=== PATIENT | female | born 1955 | race African-American/Black ===

== ENCOUNTER 2020-11-01 20:17 | Inpatient (IN) | payer SELFPAY ==
[~2020-11-01] VITALS: Ht 172.7 cm; Wt 121.4 kg
[2020-11-01] MEDS ORDERED: fentaNYL PF VIAL 100 MCG/2 ML VIAL IV PRN (21:00)
--- NOTE | 2020-11-01 21:23 | PHYS DOC ---
Past Medical History Past Medical History: Arthritis (MADELYN MONTERO APRN) Past Surgical History: Other (MADELYN MONTERO APRN) Smoking Status: Never Smoker Alcohol Use: None (MADELYN MONTERO APRN) General Adult EDM: Chief Complaint: ABDOMINAL PAIN HPI: HPI: Patient is a 65 year old female with no significant medical history who presents to the ED today complaining of 5 out of 10 generalized sharp bilateral upper abdominal pain with nausea vomiting that began 7 days ago. Patient states symptoms began after eating a hamburger with fries and strawberry shake. She believes she has food poisoning. Describes the pain as sharp and intermittent. Denies any hematemesis. Denies any diarrhea. Denies any fever. Denies any concerns for COVID-19. She states she never leaves the house. Denies anything specifically exacerbating or relieving her pain. (MADELYN MONTERO APRN) Review of Systems: Review of Systems: Constitutional: Denies fever or chills. [] Eyes: Denies change in visual acuity. [] HENT: Denies nasal congestion or sore throat. [] Respiratory: Denies cough or shortness of breath. [] Cardiovascular: Denies chest pain or edema. [] GI: Reports bilateral upper abdominal pain, nausea vomiting, denies bloody stools or diarrhea. [] : Denies dysuria. [] Musculoskeletal: Denies back pain or joint pain. [] Integument: Denies rash. [] Neurologic: Denies headache, focal weakness or sensory changes. [] Psychiatric: Denies depression or anxiety. [] (MADELYN MONTERO APRN) Heart Score: Risk Factors: Risk Factors: DM, Current or recent (<one month) smoker, HTN, HLP, family history of CAD, obesity. Risk Scores: Score 0 - 3: 2.5% MACE over next 6 weeks - Discharge Home Score 4 - 6: 20.3% MACE over next 6 weeks - Admit for Clinical Observation Score 7 - 10: 72.7% MACE over next 6 weeks - Early Invasive Strategies (MADELYN MONTERO APRN) Current Medications: Current Medications Medications (Trade) Dose Ordered Sig/Katherine Start Time Stop Time Status Last Admin Dose Admin Famotidine (Pepcid Vial) 20 mg 1X ONCE 11/01/20 21:30 11/01/20 21:31 Fentanyl Citrate (Fentanyl 2ml Vial) 50 mcg PRN Q15MIN PRN 11/01/20 21:00 11/02/20 20:59 Ondansetron HCl (Zofran) 4 mg 1X ONCE 11/01/20 21:30 11/01/20 21:31 Sodium Chloride 1,000 ml @ 1,000 mls/hr 1X ONCE 11/01/20 21:30 11/01/20 22:29 (MADELYN MONTERO APRN) Allergies: Allergies: Allergies Coded Allergies Type Severity Reaction Last Updated Verified No Known Drug Allergies 11/01/20 No (MADELYN MONTERO APRN) Physical Exam: PE: Constitutional: Well developed, well nourished, no acute distress, non-toxic appearance. [] HENT: Normocephalic, atraumatic, bilateral external ears normal, oropharynx moist, no oral exudates, nose normal. [] Eyes: PERRLA, EOMI, conjunctiva normal, no discharge. [] Neck: Normal range of motion, no tenderness, supple, no stridor. [] Cardiovascular:Heart rate regular rhythm, no murmur [] Lungs & Thorax: Bilateral breath sounds clear to auscultation [] Abdomen: Bowel sounds normal, soft, mild RUQ tenderness with positive vega's sign as well as epigastric tenderness on exam, no right lower quadrant tenderness on exam, no masses, no pulsatile masses. [] Skin: Warm, dry, no erythema, no rash. [] Back: No tenderness, no CVA tenderness. [] Extremities: No tenderness, no cyanosis, no clubbing, ROM intact, no edema. [] Neurologic: Alert and oriented X 3, normal motor function, normal sensory function, no focal deficits noted. [] Psychologic: Affect normal, judgement normal, mood normal. [] (MADELYN MONTERO APRN) Current Patient Data: Vital Signs: Vital Signs Date Time Temp Pulse Resp B/P (MAP) Pulse Ox O2 Delivery O2 Flow Rate FiO2 11/01/20 20:56 97.9 64 26 128/84 (99) 99 Room Air 97.9 (MADELYN MONTERO APRN) EKG: EKG: [] (MADELYN MONTERO APRN) Radiology/Procedures: Radiology/Procedures: []PROCEDURE: CT ABDOMEN PELVIS WO CONTRAST Exam: CT abdomen and pelvis without contrast INDICATION: Abdominal pain TECHNIQUE: Sequential axial images through the abdomen and pelvis obtained without IV contrast. Sagittal and coronal reformatted images were reconstructed from the axial data and reviewed. Comparisons: None FINDINGS: Heart size is normal. No pericardial effusion. There are small bilateral pleural effusions. Mild groundglass opacity noted at the right base. Evaluation of solid organs is limited secondary to noncontrast technique. Liver, spleen, pancreas and adrenals are unremarkable. Gallstone is noted within the gallbladder. Gallbladder is nondistended. No renal or ureteral calculi. There is mild right-sided perinephric stranding. Mild prominence of the right renal collecting system. Bladder is decompressed not well evaluated. Uterus is nonenlarged. No abnormal adnexal mass. Large and small bowel are unremarkable. Appendix is normal. No free intra- abdominal air or fluid. No obstruction. Abdominal aorta has a normal course and caliber. No enlarged intra-abdominal lymph nodes are identified. No suspicious osseous lesions or acute fractures. IMPRESSION: 1. Mild prominence of the right renal collecting system and perinephric stranding. Correlate with urinalysis for infection. 2. Cholelithiasis 3. Trace bilateral pleural effusions. Mild bilateral spastic the right lung base may relate to atelectasis or developing infectious process. Exposure: One or more of the following in the visualized dose reduction techniques were utilized for this examination: 1. Automated exposure control 2. Adjustment of the MA and/or KV according to patient size 3. Use of iterative of reconstructive technique Electronically signed by: Bekah Parker MD (11/01/2020 11:02 PM) [id number] DICTATED and SIGNED BY: BEKAH PARKER MD DATE: 11/01/20 [id number] (MADELYN MONETRO APRN) Course & Med Decision Making: Course & Med Decision Making Pertinent Labs and Imaging studies reviewed. (See chart for details) This is a 65-year-old female patient presented to the ED today with generalized upper abdominal pain with nausea vomiting that has been going on for 7 days. She believes she has food poisoning. She states symptoms began after eating a hamburger, fries and strawberry shake. CBC with a WBC of 12.4, hemoglobin 10.3 hematocrit 30.8. CMP with sodium of 127, potassium is normal. Creatinine 1.8, BUN 54, glucose 154, anion gap of 15, magnesium 3.1, AST 157, ALT 177, ALK 231. Patient denies any previous history of kidney disease. She reports the last time she saw her primary care doctor was 5 years ago. Urine analysis is still pending patient has not voided Right upper quadrant ultrasound was ordered, CT of the abdomen and pelvis noted for. Possible pyelonephritis, cholelithiasis, trace bilateral pleural effusion with possibility of atelectasis or developing lower infection to the right lung. Routine consult placed for general surgery Spoke with Dr. Delarosa who accepted patient for admission Right upper quadrant ultrasound positive for cholelithiasis with suspicion for cholecystitis. [id number] Carcamo, patient was started on Zosyn and IV fluids (MADELYN MONTERO APRN) Dragon Disclaimer: Dragon Disclaimer: This electronic medical record was generated, in whole or in part, using a voice recognition dictation system. (MADELYN MONTERO APRN) Departure Departure Impression: Primary Impression: Intractable nausea and vomiting Additional Impressions: Cholelithiasis Qualified Codes: K80.20 - Calculus of gallbladder without cholecystitis without obstruction Acute renal failure Qualified Codes: N17.9 - Acute kidney failure, unspecified Dehydration Person under investigation for COVID-19 Transaminitis Disposition: ADMITTED INPT THIS HOSP Condition: STABLE Referrals: NO PCP (PCP) Attending Signature Attending Signature I have reviewed the PA/HEALTH INSURANCE SPECIALIST's note and plan of care. I was available for consultation as needed during the patient's visit in the emergency department. I agree with the clinical impression, plan, and disposition. (ANGELLA IRIZARRY DO) MADELYN MONTERO APRN Nov 01, 2020 21:23 ANGELLA IRIZARRY DO Nov 02, 2020 04:23
[2020-11-01 21:24] LABS: BASO % 0 % (0-3); EOS # 0.1 x10^3/uL (0.0-0.7); EOS % 1 % (0-3); HEMATOCRIT 30.8 % (36.0-47.0); HEMOGLOBIN 10.3 g/dL (12.0-15.5); LYMPH # 2.6 x10^3/uL (1.0-4.8); LYMPH % 21 % (24-48); MEAN CORPUSCULAR HEMOGLOBIN 28 pg (25-35); MEAN CORPUSCULAR HGB CONC 34 g/dL (31-37); MEAN CORPUSCULAR VOLUME 85 fL (79-100); MONO % 8 % (0-9); NEUT # 8.7 x10^3/uL (1.8-7.7); NEUT % 70 % (31-73); PLATELET COUNT 246 x10^3/uL (140-400); RED BLOOD COUNT 3.65 x10^6/uL (3.50-5.40); RED CELL DISTRIBUTION WIDTH 13.7 % (11.5-14.5); WHITE BLOOD COUNT 12.4 x10^3/uL (4.0-11.0)
[2020-11-01 21:30] LABS: CALCIUM 8.4 mg/dL (8.5-10.1); CREATININE 1.8 mg/dL (0.6-1.0); GFR 34.3; POTASSIUM 4.2 mmol/L (3.5-5.1)
[2020-11-01] MEDS ORDERED: FAMOTIDINE 20 MG/2 ML VIAL IVP ONE (21:30)
[2020-11-01] MEDS ORDERED: ONDANSETRON PF 4 MG/2 ML VIAL. IVP ONE (21:30)
[2020-11-01] MEDS ORDERED: IV NORMAL SALINE 1000ML BAG 1,000 ML IV ONE ×2 (21:30→23:00)
[2020-11-01 21:36] LABS: ALBUMIN 2.5 g/dL (3.4-5.0); ALBUMIN/GLOBULIN RATIO 0.6 (1.0-1.7); MAGNESIUM 3.1 mg/dL (1.8-2.4); TOTAL PROTEIN 6.7 g/dL (6.4-8.2)
[2020-11-01] MEDS ORDERED: ONDANSETRON PF 4 MG/2 ML VIAL. IV PRN (23:00)
--- NOTE | 2020-11-01 23:04 | RAD ---
Exam: CT abdomen and pelvis without contrast INDICATION: Abdominal pain TECHNIQUE: Sequential axial images through the abdomen and pelvis obtained without IV contrast. Sagit jeramie and coronal reformatted images were reconstructed from the axial data and reviewed. Comparisons: None FINDINGS: Heart size is normal. No pericardial effusion. There are small bilateral pleural effusions. Mild grou ndglass opacity noted at the right base. Evaluation of solid organs is limited secondary to noncontrast technique. Liver, spleen, pancreas and adrenals are unremarkable. Gallstone is noted within the gallbladder. Gal lbladder is nondistended. No renal or ureteral calculi. There is mild right-sided perinephric stranding. Mild prominence of the right renal collecting system. Bladder is decompressed not well evaluated. Uterus is nonenlarged. No abnormal adnexal mass. Large and small bowel are unremarkable. Appendix is normal. No free intra-abdominal air or fluid. No obstruction. Abdominal aorta has a normal course and caliber. No enlarged intra-abdominal lymph nodes are identified. No suspicious osseous lesions or acute fractures. IMPRESSION: 1. Mild prominence of the right renal collecting system and perinephric stranding. Correlate with ur inalysis for infection. 2. Cholelithiasis 3. Trace bilateral pleural effusions. Mild bilateral spastic the right lung base may relate to atele ctasis or developing infectious process. Exposure: One or more of the following in the visualized dose reduction techniques were utilized for this examination: 1. Automated exposure control 2. Adjustment of the MA and/or KV according to patient size 3. Use of iterative of reconstructive technique Electronically signed by: Bekah Bowman MD (11/01/2020 11:02 PM) [id number]
--- NOTE | 2020-11-01 23:27 | RAD ---
Exam: Ultrasound abdomen limited Indication: Abdominal pain Technique: Real-time grayscale and color Doppler images of the right upper quadrant were obtained by the department pilot plant technician. Comparisons: CT same day FINDINGS: Increased echogenicity of the liver. Hepatopedal flow noted in the portal vein. Gallbladder is mildly distended. Nonmobile stone at the gallbladder neck. There is a sonographic Mur[place] hy sign per the department pilot plant technician. Trace pericholecystic fluid without wall thickening. Right kidney measures 10.3 cm in length. No hydronephrosis. Visualized portions aorta and IVC are unremarkable. IMPRESSION: 1. Cholelithiasis with findings suspicious for acute cholecystitis. If necessary HIDA scan can defin itively evaluate. 2. Mild hepatic steatosis. 3. No right-sided hydronephrosis. Electronically signed by: Bekah Bowman MD (11/01/2020 11:25 PM) [id number]
[2020-11-01] MEDS ORDERED: IBUP-1060 PO (23:55)
[2020-11-02] VITALS (26 sets, daily range): BP systolic 88–150; BP diastolic 62–92
[2020-11-02] MEDS: fentaNYL PF VIAL 100 MCG/2 ML VIAL IV PRN ×2 (01:10→03:47)
[2020-11-02] MEDS ORDERED: MORPHINE SULFATE 4 MG/ML VIAL. IV PRN (06:45)
--- NOTE | 2020-11-02 06:48 | PDOC1 ---
History and Physical Date of Admission Date of Admission DATE: 11/02/20 TIME: 06:36 Source Source: Chart review, Patient History of Present Illness History of Present Illness Patient is a 65-year-old female with no significant past medical history presents to the ER for evaluation of abdominal pain for the past week. Patient reports bilateral upper abdominal pain, 5/10. She reports associated nausea and vomiting over this time. Symptoms aggravated by eating. He denies any hematemesis, diarrhea, fever, or known COVID-19 exposure. Upon evaluation in the ER CT abdomen pelvis shows cholelithiasis with mild right perinephric stranding, and ultrasound right upper quadrant showed holelithiasis with findings suspicious for acute cholecystitis. Will admit patient for further medical management with general surgery consult. Past Medical History Rheumatologic: Other (Arthritis) Past Surgical History Past Surgical History: No pertinent history Family History Family History Denies pertinent family history Social History Smoke: No ALCOHOL: none Drugs: None Current Problem List Problem List Problems Medical Problems: (1) Acute renal failure Status: Acute (2) Cholelithiasis Status: Acute (3) Dehydration Status: Acute (4) Intractable nausea and vomiting Status: Acute (5) Person under investigation for COVID-19 Status: Acute (6) Renal failure Status: Acute (7) Transaminitis Status: Acute Current Medications Current Medications Current Medications Sodium Chloride 1,000 ml @ 1,000 mls/hr 1X ONCE IV Last administered on 11/01/20at 21:20; Start 11/01/20 at 21:30; Stop 11/01/20 at 22:29; Status DC Ondansetron HCl (Zofran) 4 mg 1X ONCE IVP Last administered on 11/01/20at 21:18; Start 11/01/20 at 21:30; Stop 11/01/20 at 21:31; Status DC Famotidine (Pepcid Vial) 20 mg 1X ONCE IVP Last administered on 11/01/20at 21:19; Start 11/01/20 at 21:30; Stop 11/01/20 at 21:31; Status DC Fentanyl Citrate (Fentanyl 2ml Vial) 50 mcg PRN Q15MIN PRN IV PAIN GREATER THAN 3/10 Last administered on 11/01/20at 21:19; Start 11/01/20 at 21:00; Stop 11/02/20 at 20:59 Ondansetron HCl (Zofran) 4 mg PRN Q8HRS PRN IV NAUSEA/VOMITING 1ST CHOICE; Start 11/01/20 at 23:00; Stop 11/02/20 at 22:59 Fentanyl Citrate (Fentanyl 2ml Vial) 50 mcg PRN Q1HR PRN IV SEVERE PAIN 7-10 Last administered on 11/02/20at 03:47; Start 11/01/20 at 23:00; Stop 11/02/20 at 22:59 Sodium Chloride 1,000 ml @ 100 mls/hr 1X ONCE IV Last administered on 11/02/20at 01:28; Start 11/01/20 at 23:00; Stop 11/02/20 at 08:59 Influenza Virus Vaccine Quadrival (Fluzone Quad [id number] Syringe) 0.5 ml ONCE ONCE VAX IM ; Start 11/02/20 at 09:00; Stop 11/02/20 at 09:01 Active Scripts Active Reported Ibuprofen 800 Mg Tablet 800 Mg PO PRN Q6HRS PRN Allergies Allergies: Coded Allergies: No Known Drug Allergies (Unverified , 11/01/20) ROS Review of System GENERAL: No history of weight change, weakness or fevers. SKIN: No bruising, hair changes or rashes. EYES: No blurred, double or loss of vision. NOSE AND THROAT: No history of nosebleeds, hoarseness or sore throat. HEART: Denies chest pain, denies palpitations. LUNGS: Denies cough, hemoptysis, wheezing or shortness of breath. GASTROINTESTINAL: Abdominal pain, nausea, vomiting. Denies diarrhea. GENITOURINARY: Denies dysuria, frequency, urgency, hematuria. NEUROLOGIC: Denies history of numbness, tingling, tremor or weakness. PSYCHIATRIC: Denies anxiety, denies depression. ENDOCRINE: No history of heat or cold intolerance, polyuria or polydipsia. EXTREMITIES: Denies muscle weakness, joint pain, pain on walking or stiffness. Physical Exam Physical Exam General: Alert, Oriented X3, Cooperative, No acute distress HEENT: PERRLA, EOMI Lungs: Clear to auscultation, Normal air movement Heart: RRR, no murmurs Cardiovascular: S1, S2 Abdomen: Right upper quadrant tenderness. Normal bowel sounds, Soft. Extremities: No clubbing, No cyanosis Skin: No rashes, No significant lesion Neuro: Normal speech, Normal tone, Sensation intact Psych/Mental Status: Mental status NL, Mood NL Vitals Vitals Vital Signs Date Time Temp Pulse Resp B/P (MAP) Pulse Ox O2 Delivery O2 Flow Rate FiO2 11/02/20 04:17 90 2.0 11/02/20 03:47 Nasal Cannula 11/02/20 03:04 98.9 92 19 117/77 (90) 98.9 Labs Labs Laboratory Tests Test 11/01/20 21:12 11/01/20 22:53 White Blood Count 12.4 x10^3/uL (4.0-11.0) Red Blood Count 3.65 x10^6/uL (3.50-5.40) Hemoglobin 10.3 g/dL (12.0-15.5) Hematocrit 30.8 % (36.0-47.0) Mean Corpuscular Volume 85 fL (79-100) Mean Corpuscular Hemoglobin 28 pg (25-35) Mean Corpuscular Hemoglobin Concent 34 g/dL (31-37) Red Cell Distribution Width 13.7 % (11.5-14.5) Platelet Count 246 x10^3/uL (140-400) Neutrophils (%) (Auto) 70 % (31-73) Lymphocytes (%) (Auto) 21 % (24-48) Monocytes (%) (Auto) 8 % (0-9) Eosinophils (%) (Auto) 1 % (0-3) Basophils (%) (Auto) 0 % (0-3) Neutrophils # (Auto) 8.7 x10^3/uL (1.8-7.7) Lymphocytes # (Auto) 2.6 x10^3/uL (1.0-4.8) Monocytes # (Auto) 1.0 x10^3/uL (0.0-1.1) Eosinophils # (Auto) 0.1 x10^3/uL (0.0-0.7) Basophils # (Auto) 0.0 x10^3/uL (0.0-0.2) Sodium Level 127 mmol/L (136-145) Potassium Level 4.2 mmol/L (3.5-5.1) Chloride Level 94 mmol/L (98-107) Carbon Dioxide Level 18 mmol/L (21-32) Anion Gap 15 (6-14) Blood Urea Nitrogen 54 mg/dL (7-20) Creatinine 1.8 mg/dL (0.6-1.0) Estimated GFR (Cockcroft-Gault) 34.3 BUN/Creatinine Ratio 30 (6-20) Glucose Level 151 mg/dL (70-99) Calcium Level 8.4 mg/dL (8.5-10.1) Magnesium Level 3.1 mg/dL (1.8-2.4) Total Bilirubin 1.0 mg/dL (0.2-1.0) Aspartate Amino Transf (AST/SGOT) 157 U/L (15-37) Alanine Aminotransferase (ALT/SGPT) 177 U/L (14-59) Alkaline Phosphatase 231 U/L (46-116) Total Protein 6.7 g/dL (6.4-8.2) Albumin 2.5 g/dL (3.4-5.0) Albumin/Globulin Ratio 0.6 (1.0-1.7) Lipase 135 U/L (73-393) Ethyl Alcohol Level < 10 mg/dL (0-10) SARS-CoV-2 Antigen (Rapid) Negative (NEGATIVE) Laboratory Tests Test 11/01/20 21:12 11/01/20 22:53 White Blood Count 12.4 x10^3/uL (4.0-11.0) Red Blood Count 3.65 x10^6/uL (3.50-5.40) Hemoglobin 10.3 g/dL (12.0-15.5) Hematocrit 30.8 % (36.0-47.0) Mean Corpuscular Volume 85 fL (79-100) Mean Corpuscular Hemoglobin 28 pg (25-35) Mean Corpuscular Hemoglobin Concent 34 g/dL (31-37) Red Cell Distribution Width 13.7 % (11.5-14.5) Platelet Count 246 x10^3/uL (140-400) Neutrophils (%) (Auto) 70 % (31-73) Lymphocytes (%) (Auto) 21 % (24-48) Monocytes (%) (Auto) 8 % (0-9) Eosinophils (%) (Auto) 1 % (0-3) Basophils (%) (Auto) 0 % (0-3) Neutrophils # (Auto) 8.7 x10^3/uL (1.8-7.7) Lymphocytes # (Auto) 2.6 x10^3/uL (1.0-4.8) Monocytes # (Auto) 1.0 x10^3/uL (0.0-1.1) Eosinophils # (Auto) 0.1 x10^3/uL (0.0-0.7) Basophils # (Auto) 0.0 x10^3/uL (0.0-0.2) Sodium Level 127 mmol/L (136-145) Potassium Level 4.2 mmol/L (3.5-5.1) Chloride Level 94 mmol/L (98-107) Carbon Dioxide Level 18 mmol/L (21-32) Anion Gap 15 (6-14) Blood Urea Nitrogen 54 mg/dL (7-20) Creatinine 1.8 mg/dL (0.6-1.0) Estimated GFR (Cockcroft-Gault) 34.3 BUN/Creatinine Ratio 30 (6-20) Glucose Level 151 mg/dL (70-99) Calcium Level 8.4 mg/dL (8.5-10.1) Magnesium Level 3.1 mg/dL (1.8-2.4) Total Bilirubin 1.0 mg/dL (0.2-1.0) Aspartate Amino Transf (AST/SGOT) 157 U/L (15-37) Alanine Aminotransferase (ALT/SGPT) 177 U/L (14-59) Alkaline Phosphatase 231 U/L (46-116) Total Protein 6.7 g/dL (6.4-8.2) Albumin 2.5 g/dL (3.4-5.0) Albumin/Globulin Ratio 0.6 (1.0-1.7) Lipase 135 U/L (73-393) Ethyl Alcohol Level < 10 mg/dL (0-10) SARS-CoV-2 Antigen (Rapid) Negative (NEGATIVE) Images Images ABDOMEN LTD Exam: Ultrasound abdomen limited Indication: Abdominal pain Technique: Real-time grayscale and color Doppler images of the right upper quadrant were obtained by the department animal keeper head. Comparisons: CT same day FINDINGS: Increased echogenicity of the liver. Hepatopedal flow noted in the portal vein. Gallbladder is mildly distended. Nonmobile stone at the gallbladder neck. There is a sonographic [place] sign per the department animal keeper head. Trace pericholecystic fluid without wall thickening. Right kidney measures 10.3 cm in length. No hydronephrosis. Visualized portions aorta and IVC are unremarkable. IMPRESSION: 1. Cholelithiasis with findings suspicious for acute cholecystitis. If necessary HIDA scan can definitively evaluate. 2. Mild hepatic steatosis. 3. No right-sided hydronephrosis. CT ABDOMEN PELVIS WO CONTRAST Exam: CT abdomen and pelvis without contrast INDICATION: Abdominal pain TECHNIQUE: Sequential axial images through the abdomen and pelvis obtained without IV contrast. Sagittal and coronal reformatted images were reconstructed from the axial data and reviewed. Comparisons: None FINDINGS: Heart size is normal. No pericardial effusion. There are small bilateral pleural effusions. Mild groundglass opacity noted at the right base. Evaluation of solid organs is limited secondary to noncontrast technique. Liver, spleen, pancreas and adrenals are unremarkable. Gallstone is noted within the gallbladder. Gallbladder is nondistended. No renal or ureteral calculi. There is mild right-sided perinephric stranding. Mild prominence of the right renal collecting system. Bladder is decompressed not well evaluated. Uterus is nonenlarged. No abnormal adnexal mass. Large and small bowel are unremarkable. Appendix is normal. No free intra-abd ominal air or fluid. No obstruction. Abdominal aorta has a normal course and caliber. No enlarged intra-abdominal lymph nodes are identified. No suspicious osseous lesions or acute fractures. IMPRESSION: 1. Mild prominence of the right renal collecting system and perinephric stranding. Correlate with urinalysis for infection. 2. Cholelithiasis 3. Trace bilateral pleural effusions. Mild bilateral spastic the right lung base may relate to atelectasis or developing infectious process. VTE Prophylaxis Ordered VTE Prophylaxis Devices: No VTE Pharmacological Prophylaxi: Yes Assessment/Plan Assessment/Plan Symptomatic cholelithiasis Possible cholecystitis Dehydration SHINE Vasomotor nephropathy Hyponatremia Transaminitis Severe malnutrition Plan: Ultrasound right upper quadrant pain admission shows findings suspicious for acute cholecystitis Consultation placed to general surgery Pain management, Zofran as needed IV fluids UA pending COVID-19 pending Will follow surgery recommendations, advance diet as tolerated FEN - NPO PPX - Lovenox FULL CODE Dispo - inpatient for above Justifications for Admission Other Justification VALERY CHI MD Nov 02, 2020 06:48
[2020-11-02] MEDS ORDERED: PROCHLORPERAZINE 10 MG/2 ML VIAL. IVP PRN ×2 (07:00→08:15)
[2020-11-02] MEDS ORDERED: BISACODYL 10 MG SUPP.RECT. PR PRN (07:00)
[2020-11-02] MEDS ORDERED: MORPHINE SULFATE 2 MG/ML VIAL. IV PRN (07:00)
[2020-11-02] MEDS ORDERED: ONDANSETRON PF 4 MG/2 ML VIAL. IVP PRN ×2 (07:00→08:15)
[2020-11-02] MEDS ORDERED: ZOLPIDEM 5 MG TABLET. PO PRN (07:00)
[2020-11-02] MEDS ORDERED: ACETAMINOPHEN 325 MG TABLET. PO PRN (07:00)
[2020-11-02] MEDS ORDERED: MAGNESIUM HYDROXIDE 2,400 MG/30 ML ORAL.SUSP. PO PRN (07:00)
[2020-11-02] MEDS ORDERED: HYDROmorphone 2 MG/ML VIAL IV PRN (07:00)
[2020-11-02] MEDS ORDERED: ENOXAPARIN 40 MG/0.4 ML SYRINGE. SQ SCH (08:00)
[2020-11-02] MEDS ORDERED: LIDOCAINE 1% PF 2 ML VIAL. ID PRN (08:15)
[2020-11-02] MEDS ORDERED: fentaNYL PF VIAL 100 MCG/2 ML VIAL IVP PRN ×2 (08:15)
[2020-11-02] MEDS ORDERED: MORPHINE SULFATE 2 MG/ML VIAL. IVP PRN (08:15)
[2020-11-02] MEDS: IV RINGERS,LACTATED 1000ML 1,000 ML IV SCH ×2 (08:15→08:37)
[2020-11-02] MEDS ORDERED: HYDROmorphone 2 MG/ML VIAL IVP PRN (08:15)
--- NOTE | 2020-11-02 08:25 | PDOC2 ---
RADHA LYNN PRODUCTION SOLDERER 11/02/20 0825: CONSULT Date of Consult Date of Consult DATE: 11/02/20 TIME: 08:18 Reason for Consult Reason for Consult: cholecystitis Referring Physician Referring Physician: ER Identification/Chief Complaint Chief Complaint abdominal pain Source Source: Chart review, Patient History of Present Illness Reason for Visit: Believes food poisoning Monday--after bur and , developed upper ab dominal pain, vomiting, lasted 3 days, pain persisted, no diarrhea. Past Medical History Past Medical History denies any pertinent hx Rheumatologic: Other (Arthritis) Past Surgical History Past Surgical History: No pertinent history Family History Family History: Other (no pertinent hx to admission ) Social History No ALCOHOL: none Drugs: None Lives: Alone Current Problem List Problem List Problems Medical Problems: (1) Acute renal failure Status: Acute (2) Cholelithiasis Status: Acute (3) Dehydration Status: Acute (4) Intractable nausea and vomiting Status: Acute (5) Person under investigation for COVID-19 Status: Acute (6) Renal failure Status: Acute (7) Transaminitis Status: Acute Current Medications Current Medications Current Medications Sodium Chloride 1,000 ml @ 1,000 mls/hr 1X ONCE IV Last administered on 11/01/20at 21:20; Start 11/01/20 at 21:30; Stop 11/01/20 at 22:29; Status DC Ondansetron HCl (Zofran) 4 mg 1X ONCE IVP Last administered on 11/01/20at 21:18; Start 11/01/20 at 21:30; Stop 11/01/20 at 21:31; Status DC Famotidine (Pepcid Vial) 20 mg 1X ONCE IVP Last administered on 11/01/20at 21:19; Start 11/01/20 at 21:30; Stop 11/01/20 at 21:31; Status DC Fentanyl Citrate (Fentanyl 2ml Vial) 50 mcg PRN Q15MIN PRN IV PAIN GREATER THAN 3/10 Last administered on 11/01/20at 21:19; Start 11/01/20 at 21:00; Stop 11/02/20 at 20:59 Ondansetron HCl (Zofran) 4 mg PRN Q8HRS PRN IV NAUSEA/VOMITING 1ST CHOICE; Start 11/01/20 at 23:00; Stop 11/02/20 at 22:59 Fentanyl Citrate (Fentanyl 2ml Vial) 50 mcg PRN Q1HR PRN IV SEVERE PAIN 7-10 Last administered on 11/02/20at 03:47; Start 11/01/20 at 23:00; Stop 11/02/20 at 22:59 Sodium Chloride 1,000 ml @ 100 mls/hr 1X ONCE IV Last administered on 11/02/20at 01:28; Start 11/01/20 at 23:00; Stop 11/02/20 at 08:59 Influenza Virus Vaccine Quadrival (Fluzone Quad Syringe) 0.5 ml ONCE ONCE VAX IM ; Start 11/02/20 at 09:00; Stop 11/02/20 at 09:01 Morphine Sulfate (Morphine Sulfate) 4 mg PRN Q2HR PRN IV SEVERE PAIN 7-10; Start 11/02/20 at 06:45 Ondansetron HCl (Zofran) 4 mg PRN Q6HRS PRN IVP NAUSEA/VOMITING 1ST CHOICE; Start 11/02/20 at 07:00 Prochlorperazine Edisylate (Compazine) 10 mg PRN Q6HRS PRN IVP NAUSEA/VOMITING 2ND CHOICE; Start 11/02/20 at 07:00 Zolpidem Tartrate (Ambien) 5 mg PRN QHS PRN PO INSOMNIA, MAY REPEAT IN 1HR; Start 11/02/20 at 07:00 Morphine Sulfate (Morphine Sulfate) 2 mg PRN Q1HR PRN IV MODERATE PAIN 4-6; Start 11/02/20 at 07:00 Hydromorphone HCl (Dilaudid) 0.4 mg PRN Q1HR PRN IV SEVERE PAIN 7-10; Start 11/02/20 at 07:00 Acetaminophen (Tylenol) 650 mg PRN Q6HRS PRN PO Headaches, Temp > 101.5F; Start 11/02/20 at 07:00 Magnesium Hydroxide (Milk Of Magnesia) 2,400 mg PRN Q12HR PRN PO CONSTIPATION 1ST CHOICE; Start 11/02/20 at 07:00 Bisacodyl (Dulcolax Supp) 10 mg PRN DAILY PRN [place] CONSTIPATION 2ND CHOICE; Start 11/02/20 at 07:00 Heparin Sodium (Porcine) (Heparin Sodium) 5,000 unit Q8HRS SQ ; Start 11/02/20 at 14:00; Stop 11/02/20 at 14:00; Status Cancel Enoxaparin Sodium (Lovenox 40mg Syringe) 40 mg Q24H SQ ; Start 11/02/20 at 08:00; Stop 11/02/20 at 07:41; Status DC Ondansetron HCl (Zofran) 4 mg PRN Q6HRS PRN IVP NAUSEA/VOMITING; Start 11/02/20 at 08:15; Stop 11/03/20 at 08:14; Status UNV Fentanyl Citrate (Fentanyl 2ml Vial) 25 mcg PRN Q5MIN PRN IVP MILD PAIN 1-3; Start 11/02/20 at 08:15; Stop 11/03/20 at 08:14; Status UNV Fentanyl Citrate (Fentanyl 2ml Vial) 50 mcg PRN Q5MIN PRN IVP MODERATE TO SEVERE PAIN; Start 11/02/20 at 08:15; Stop 11/03/20 at 08:14; Status UNV Morphine Sulfate (Morphine Sulfate) 1 mg PRN Q10MIN PRN IVP SEVERE PAIN 7-10; Start 11/02/20 at 08:15; Stop 11/03/20 at 08:14; Status UNV Ringer's Solution 1,000 ml @ 30 mls/hr Q24H IV ; Start 11/02/20 at 08:15; Stop 11/02/20 at 20:14; Status UNV Lidocaine HCl (Xylocaine-Mpf 1% 2ml Vial) 2 ml 1X PRN PRN ID IV START; Start 11/02/20 at 08:15; Stop 11/03/20 at 08:14; Status UNV Hydromorphone HCl (Dilaudid) 0.5 mg PRN Q10MIN PRN IVP SEV PAIN, Second choice; Start 11/02/20 at 08:15; Stop 11/03/20 at 08:14; Status UNV Prochlorperazine Edisylate (Compazine) 5 mg PACU PRN PRN IVP NAUSEA, MRX1; Start 11/02/20 at 08:15; Stop 11/03/20 at 08:14; Status UNV Active Scripts Active Reported Ibuprofen 800 Mg Tablet 800 Mg PO PRN Q6HRS PRN Allergies Allergies: Coded Allergies: No Known Drug Allergies (Unverified , 11/01/20) ROS General: No: Chills, Other (fevers ) PSYCHOLOGICAL ROS: No: Anxiety, Depression Eyes: No Blurry vision, No Double vision Hematological and Lymphatic: No: Bleeding Problems, Blood Clots Respiratory: No: Cough, Shortness of breath Cardiovascular: No Chest Pain, No Palpitations Gastrointestinal: Yes Other (see hpi) Genitourinary: No Dysuria, No Hematuria Musculoskeletal: No Joint Pain, No Muscle Pain Neurological: No Impaired Coord/balance, No Numbness/Tingling Skin: No Pruritus, No Rash Physical Exam General: Alert, Oriented X3, Other (acute pain ) HEENT: Atraumatic, PERRLA Lungs: Clear to auscultation, Normal air movement Heart: Regular rate, Normal S1, Normal S2 Abdomen: Soft, Other (moderate TTP upper abdomen ) Extremities: No clubbing, No cyanosis Skin: No rashes, No breakdown Neuro: Normal speech, Sensation intact Psych/Mental Status: Mental status NL, Mood NL MUSCULOSKELETAL: No deformity, No swelling Vitals VITALS Vital Signs Date Time Temp Pulse Resp B/P (MAP) Pulse Ox O2 Delivery O2 Flow Rate FiO2 11/02/20 07:00 93.0 52 18 108/77 (87) 94 Nasal Cannula 2.0 93.0 Labs Labs Laboratory Tests Test 11/01/20 21:12 11/01/20 22:53 White Blood Count 12.4 x10^3/uL (4.0-11.0) Red Blood Count 3.65 x10^6/uL (3.50-5.40) Hemoglobin 10.3 g/dL (12.0-15.5) Hematocrit 30.8 % (36.0-47.0) Mean Corpuscular Volume 85 fL (79-100) Mean Corpuscular Hemoglobin 28 pg (25-35) Mean Corpuscular Hemoglobin Concent 34 g/dL (31-37) Red Cell Distribution Width 13.7 % (11.5-14.5) Platelet Count 246 x10^3/uL (140-400) Neutrophils (%) (Auto) 70 % (31-73) Lymphocytes (%) (Auto) 21 % (24-48) Monocytes (%) (Auto) 8 % (0-9) Eosinophils (%) (Auto) 1 % (0-3) Basophils (%) (Auto) 0 % (0-3) Neutrophils # (Auto) 8.7 x10^3/uL (1.8-7.7) Lymphocytes # (Auto) 2.6 x10^3/uL (1.0-4.8) Monocytes # (Auto) 1.0 x10^3/uL (0.0-1.1) Eosinophils # (Auto) 0.1 x10^3/uL (0.0-0.7) Basophils # (Auto) 0.0 x10^3/uL (0.0-0.2) Sodium Level 127 mmol/L (136-145) Potassium Level 4.2 mmol/L (3.5-5.1) Chloride Level 94 mmol/L (98-107) Carbon Dioxide Level 18 mmol/L (21-32) Anion Gap 15 (6-14) Blood Urea Nitrogen 54 mg/dL (7-20) Creatinine 1.8 mg/dL (0.6-1.0) Estimated GFR (Cockcroft-Gault) 34.3 BUN/Creatinine Ratio 30 (6-20) Glucose Level 151 mg/dL (70-99) Calcium Level 8.4 mg/dL (8.5-10.1) Magnesium Level 3.1 mg/dL (1.8-2.4) Total Bilirubin 1.0 mg/dL (0.2-1.0) Aspartate Amino Transf (AST/SGOT) 157 U/L (15-37) Alanine Aminotransferase (ALT/SGPT) 177 U/L (14-59) Alkaline Phosphatase 231 U/L (46-116) Total Protein 6.7 g/dL (6.4-8.2) Albumin 2.5 g/dL (3.4-5.0) Albumin/Globulin Ratio 0.6 (1.0-1.7) Lipase 135 U/L (73-393) Ethyl Alcohol Level < 10 mg/dL (0-10) SARS-CoV-2 Antigen (Rapid) Negative (NEGATIVE) Laboratory Tests Test 11/01/20 21:12 11/01/20 22:53 White Blood Count 12.4 x10^3/uL (4.0-11.0) Red Blood Count 3.65 x10^6/uL (3.50-5.40) Hemoglobin 10.3 g/dL (12.0-15.5) Hematocrit 30.8 % (36.0-47.0) Mean Corpuscular Volume 85 fL (79-100) Mean Corpuscular Hemoglobin 28 pg (25-35) Mean Corpuscular Hemoglobin Concent 34 g/dL (31-37) Red Cell Distribution Width 13.7 % (11.5-14.5) Platelet Count 246 x10^3/uL (140-400) Neutrophils (%) (Auto) 70 % (31-73) Lymphocytes (%) (Auto) 21 % (24-48) Monocytes (%) (Auto) 8 % (0-9) Eosinophils (%) (Auto) 1 % (0-3) Basophils (%) (Auto) 0 % (0-3) Neutrophils # (Auto) 8.7 x10^3/uL (1.8-7.7) Lymphocytes # (Auto) 2.6 x10^3/uL (1.0-4.8) Monocytes # (Auto) 1.0 x10^3/uL (0.0-1.1) Eosinophils # (Auto) 0.1 x10^3/uL (0.0-0.7) Basophils # (Auto) 0.0 x10^3/uL (0.0-0.2) Sodium Level 127 mmol/L (136-145) Potassium Level 4.2 mmol/L (3.5-5.1) Chloride Level 94 mmol/L (98-107) Carbon Dioxide Level 18 mmol/L (21-32) Anion Gap 15 (6-14) Blood Urea Nitrogen 54 mg/dL (7-20) Creatinine 1.8 mg/dL (0.6-1.0) Estimated GFR (Cockcroft-Gault) 34.3 BUN/Creatinine Ratio 30 (6-20) Glucose Level 151 mg/dL (70-99) Calcium Level 8.4 mg/dL (8.5-10.1) Magnesium Level 3.1 mg/dL (1.8-2.4) Total Bilirubin 1.0 mg/dL (0.2-1.0) Aspartate Amino Transf (AST/SGOT) 157 U/L (15-37) Alanine Aminotransferase (ALT/SGPT) 177 U/L (14-59) Alkaline Phosphatase 231 U/L (46-116) Total Protein 6.7 g/dL (6.4-8.2) Albumin 2.5 g/dL (3.4-5.0) Albumin/Globulin Ratio 0.6 (1.0-1.7) Lipase 135 U/L (73-393) Ethyl Alcohol Level < 10 mg/dL (0-10) SARS-CoV-2 Antigen (Rapid) Negative (NEGATIVE) Assessment/Plan Assessment/Plan cholecystitis noted hyponatremia SHINE-cr 1.8 will repeat chemistry this AM will need lap emily rapid covid negative DEVAN GLORIA MD 11/02/20 1201: CONSULT Assessment/Plan Assessment/Plan pt seen and examined by myself; 65 year old female with upper abdominal pain, now hurts "all over", pain sharp and severe. PMH/PSH/ROS/SH as above; exam alert, uncomfortable, lungs clear, heart RR and R, abdomen obese, tender upper abdomen with guarding, ext neg for edema; Labs and Xrays reviewed. A/P) Abdominal pain, testing suggestive of cholecystitis, labs worrisome for SIRS process, plan to proceed with laparoscopy to further evaluate, confirm if gallbladder is source RADHA LYNN APRN Nov 02, 2020 08:25 DEVAN GLORIA MD Nov 02, 2020 12:01
[2020-11-02] MEDS ORDERED: FLU VACC QS 2020-21(6MOS+)/PF 0.5 ML SYRINGE. VAX IM ONE (09:00)
[2020-11-02] MEDS: PIPERACILLIN/TAZOBACTAM 2.25 GM in IV NORMAL SALINE 50ML 50 ML IV SCH ×3 (10:00→18:46)
[2020-11-02 10:40] LABS: BASO % 0 % (0-3); EOS # 0.1 x10^3/uL (0.0-0.7); EOS % 1 % (0-3); HEMATOCRIT 35.7 % (36.0-47.0); HEMOGLOBIN 11.4 g/dL (12.0-15.5); LYMPH # 2.3 x10^3/uL (1.0-4.8); LYMPH % 16 % (24-48); MEAN CORPUSCULAR HEMOGLOBIN 29 pg (25-35); MEAN CORPUSCULAR HGB CONC 32 g/dL (31-37); MEAN CORPUSCULAR VOLUME 89 fL (79-100); MONO # 1.4 x10^3/uL (0.0-1.1); MONO % 9 % (0-9); NEUT # 11.2 x10^3/uL (1.8-7.7); NEUT % 75 % (31-73); PLATELET COUNT 191 x10^3/uL (140-400); RED BLOOD COUNT 4.01 x10^6/uL (3.50-5.40); RED CELL DISTRIBUTION WIDTH 14.2 % (11.5-14.5)
[2020-11-02] MEDS ORDERED: PROPOFOL 10 MG/ML (20ML) VIAL. IV ONE (10:50)
[2020-11-02] MEDS ORDERED: DEXAMETHASONE SOD PHOS 20 MG/5 ML VIAL. ONE (10:50)
[2020-11-02] MEDS ORDERED: LIDOCAINE 2% PF 5 ML VIAL. ONE (10:50)
[2020-11-02] MEDS ORDERED: ROCURONIUM 50 MG/5 ML VIAL. ONE (10:51)
[2020-11-02] MEDS ORDERED: ONDANSETRON PF 4 MG/2 ML VIAL. ONE (10:51)
[2020-11-02 10:56] LABS: CALCIUM 8.4 mg/dL (8.5-10.1); CREATININE 2.2 mg/dL (0.6-1.0); GFR 27.2; POTASSIUM 4.7 mmol/L (3.5-5.1)
[2020-11-02 11:03] LABS: ALBUMIN 2.5 g/dL (3.4-5.0); ALBUMIN/GLOBULIN RATIO 0.5 (1.0-1.7); TOTAL BILIRUBIN 1.9 mg/dL (0.2-1.0); TOTAL PROTEIN 7.1 g/dL (6.4-8.2)
[2020-11-02] MEDS ORDERED: fentaNYL PF VIAL 100 MCG/2 ML VIAL ONE ×2 (11:16→11:40)
[2020-11-02] MEDS ORDERED: BUPIVACAINE MPF 0.5% 30 ML VIAL. ONE (11:28)
[2020-11-02] MEDS ORDERED: IOHEXOL 300 MG/ML 50 ML VIAL. ONE (11:28)
[2020-11-02] MEDS ORDERED: SUCCINYLCHOLINE 200 MG/10 ML VIAL. ONE (11:35)
[2020-11-02] MEDS ORDERED: PIPERACILLIN/TAZOBACTAM 3.375 GM in IV NORMAL SALINE 50ML 50 ML IV SCH (12:00)
[2020-11-02] MEDS ORDERED: NOREPINEPHRINE VIAL 8 MG in IV DEXTROSE 5% 250 ML IV PRN (12:30)
[2020-11-02] MEDS ORDERED: ALBUTEROL SULFATE 8GM INHALER. INH ONE (12:35)
[2020-11-02 12:38] LABS: ART BE ISTAT -17 mmol/L (0-3); ART GLUC ISTAT 86 mg/dL (70-99); ART HCO3 ISTAT 12 mmol/L (21-28); ART HCT ISTAT 28 % (36-40); ART HGB ISTAT 9.5 g/dL (12-15); ART ION CA ISTAT 1.01 mmol/L (1.13-1.32); ART K ISTAT 4.4 mmol/L (3.5-5.0); ART NA ISTAT 129 mmol/L (135-145); ART PCO2 ISTAT 32 mmHg (35-45); ART PH ISTAT 7.17 (7.35-7.45); ART PO2 ISTAT 203 mmHg (75-100); ART SAT O2 SAT 99 % (95-99); ART TCO2 ISTAT 13 mmol/L (21-32); CORRECTED PCO2 32 mmHg; CORRECTED PH 7.17; CORRECTED PO2 203 mmHg
[2020-11-02] MEDS ORDERED: SURGICEL HEMOSTAT 4X8 EACH. ONE ×3 (12:38→12:56)
--- NOTE | 2020-11-02 12:46 | RAD ---
ADDENDUM #1 Addendum: The total fluoroscopy time was less than 6 seconds. The history section of the portion also include "pain". Electronically signed by: Nita Christie MD (11/30/2020 12:42 PM) [id number] ORIGINAL REPORT EXAM: Intraoperative cholangiogram. HISTORY: Cholecystectomy COMPARISON: None. FINDINGS: 3 fluoroscopic images were obtained during an intraoperative cholangiogram. The total fluor oscopy time was submitted with images. There is contrast opacification of the biliary tree and proxim al small bowel. There is no evidence of a retained stone or stricture. IMPRESSION: Intraoperative cholangiogram, without evidence of a retained biliary stone or stricture. Electronically signed by: Nita Christie MD (11/02/2020 12:43 PM) [id number]
[2020-11-02] MEDS ORDERED: SURGICEL HEMOSTAT 4X8 EACH. TP ONE (12:47)
--- NOTE | 2020-11-02 13:20 | PDOC4 ---
Operative Note Operative Note Operative Note: Preoperative Diagnosis: Calculous cholecystitis Postoperative Diagnosis: Same Procedure: Laparoscopic cholecystectomy with intraoperative cholangiogram Surgeons: Carlos Alberto Lens Assistant: Emiliano Wise Anesthesia: Gen. Estimated Blood Loss: 200 mL Specimen: Gallbladder to pathology Drains: None Findings: Gallbladder appeared normal without changes of acute cholecystitis, no other abdominal process identified and no visible abdominal source of sepsis Complications: None Indications: The patient is a 65-year-old female who was admitted with abdominal pain. Her evaluation appeared consistent with acute cholecystitis. Surgical treatment was offered by means of a laparoscopic cholecystectomy. The risks of surgery were discussed which include bleeding, infection, bile duct injury, bile leak, pain, the potential for additional surgeries or procedures. The patient understands and would like to proceed. Description: The patient was taken to the operating room and laid supine on the operating table. General anesthesia was performed. The abdomen was prepped with ChloraPrep and draped in a standard surgical fashion. A small infraumbilical incision was made with a scalpel. The Veress needle was then inserted and a pneumoperitoneum was then created. A 5 mm trocar was then inserted and the laparoscope was introduced. In the upper midabdomen an 11 mm trocar was inserted and in the right upper quadrant two 5 mm trochars were inserted. Assessment of the abdomen showed a small amount of clear fluid around the liver. The gallbladder appeared grossly normal. The stomach and duodenum appeared normal with no evidence of any contamination or inflammation. The appendix terminal ileum and cecum all appeared normal. The pelvis showed no signs of an inflammatory process. Intra-abdominal findings were not consistent with acute cholecystitis or an abdominal source of sepsis. We proceeded with the cholecystectomy. The gallbladder was retracted cephalad. The cystic duct was dissected free from surrounding tissues. One clip was placed on the duct near the gallbladder junction. An opening was made in the duct and a cholangiocatheter placed within and secured with a clip. Using contrast dye and fluoroscopy an intraoperative cholangiogram was performed that appeared unremarkable. The clip and catheter were then withdrawn. Three clips were placed on the cystic duct and it was divided. The cystic artery was then identified, dissected free, doubly clipped and divided as well. The gallbladder was then mobilized away from the liver with cautery. This proved to be difficult as the attachments to the liver were very friable and the liver capsule bled very easily. Two Surgicel packs were placed on the gallbladder fossa to assist with hemostasis. The gallbladder was then placed in an endoscopic bag and extracted at the superior trocar site. The fascia there was closed with an 0 Vicryl suture. All blood and irrigation fluid was suctioned and hemostasis was good. The remaining ports were removed and the pneumoperitoneum was relieved. The skin incisions were injected with half percent Marcaine with epinephrine, and all were closed using 4-0 Monocryl suture. Steri-Strips and dressings were then applied. At the end of the case all counts were correct. The patient will be taken to the ICU in guarded condition. DEVAN GLORIA MD Nov 02, 2020 13:20
[2020-11-02] MEDS ORDERED: SODIUM BICARB ADULT 8.4% 50 MEQ/50 ML DISP.SYRIN. ONE ×2 (13:21→14:27)
[2020-11-02 13:27] LABS: HEMATOCRIT 28.3 % (36.0-47.0); HEMOGLOBIN 9.2 g/dL (12.0-15.5); RED BLOOD COUNT 3.24 x10^6/uL (3.50-5.40); WHITE BLOOD COUNT 14.3 x10^3/uL (4.0-11.0)
[2020-11-02] MEDS ORDERED: PHENYLEPHRINE 10 MG/ML VIAL. ONE (13:37)
[2020-11-02 13:40] LABS: PROTHROMBIN TIME PATIENT 19.6 SEC (11.7-14.0)
[2020-11-02 13:44] LABS: ALBUMIN/GLOBULIN RATIO 0.7 (1.0-1.7); CALCIUM 7.1 mg/dL (8.5-10.1); CREATININE 2.5 mg/dL (0.6-1.0); GFR 23.5; POTASSIUM 5.1 mmol/L (3.5-5.1); TOTAL BILIRUBIN 1.7 mg/dL (0.2-1.0)
[2020-11-02] MEDS ORDERED: HEPARIN for SUB-Q USE 5,000 UNIT/ML VIAL. SQ SCH (14:00)
[2020-11-02] MEDS ORDERED: EPINEPHrine 1 MG/ML VIAL ONE (14:11)
[2020-11-02 14:26] LABS: BASE EXCESS ABG -14 mmol/L (-3-3); CORRECTED PCO2 ABG 35 mmHg; CORRECTED PH ABG 7.19; CORRECTED PO2 ABG 144 mmHg; HCO3 ABG 13 mmol/L (21-28); PCO2 ABG 36 mmHg (35-46); PO2 ABG 149 mmHg (65-108); SAT O2 ABG 98 % (92-99)
[2020-11-02 14:28] LABS: FIO2 ABG 100
[2020-11-02] MEDS: MIDAZOLAM 100mg/100ml NS BAG 100 ML IV PRN (14:29)
--- NOTE | 2020-11-02 14:31 | RAD ---
EXAM: Chest, single view. HISTORY: Central line placement. COMPARISON: None. FINDINGS: A frontal view of the chest obtained. There is an endotracheal tube within the distal trach ea. There is a nasogastric tube within the stomach. There is a right internal jugular catheter with t he tip in the superior vena cava. There is right greater than left upper lobe partial consolidation s uperimposed on diffuse interstitial infiltrate. No pleural effusion or pneumothorax is seen. IMPRESSION: 1. Right internal jugular catheter with the tip in the superior vena cava, endotracheal tube within t he distal trachea and nasogastric tube within the stomach. 2. Partially consolidated right greater than left upper lobe infiltrate superimposed on diffuse inter stitial infiltrate. TO confirm resolution. Electronically signed by: Nita Christie MD (11/02/2020 2:29 PM) [id number]
[2020-11-02] MEDS ORDERED: SODIUM BICARB ADULT 8.4% 50 MEQ/50 ML DISP.SYRIN. IV ONE (14:45)
[2020-11-02] MEDS ORDERED: IV NORMAL SALINE 1000ML BAG 1,000 ML IV ONE ×2 (15:00→17:30)
--- NOTE | 2020-11-02 15:05 | NUR ---
SW following for discharge planning. Spoke with RN and reviewed chart. Pt transferred to ICU today. Pt on a ventilator and having surgery. Pt on IV Zosyn. No additional needs from this SW. hortencia Plummer to follow.
--- NOTE | 2020-11-02 15:54 | PDOC2 ---
GI CONSULT Date of Service: DATE: 11/02/20 TIME: 15:40 Reason For Consult: abnormal LFTs HPI: HPI: 65 y/o female admitted through ER yesterday. Currently intubated in ICU - history from nurse and chart. H/o upper abdominal pain and vomiting, possible food poisoning last Monday but symptoms persisted and were worse w/ eating. Imagining noted cholelithiasis w/ possible cholecystitis. Now s/p laparoscopic cholecystectomy w/ normal IOC. Nurse reports some hypotension in OR, now on Levophed and rewarming. Noted with abnormal LFTs and we are asked to see re: this. Op note mentions clear fluid around liver and friable attachments to liver w/ easily bleeding capsule. Chart indicates possible h/o GERD. No liver or alcohol history mentioned in chart. PMH: PMH: per chart: GERD, OA, depression/anxiety FH: Family History: Other (unable to obtain) ROS: GEN: Denies fevers, chills, sweats HEENT: Denies blurred vision, sore throat CV: Denies chest pain RESP: Denies shortness of air, cough GI: Per HPI : Denies hematuria, dysuria ENDO: Denies weight changes NEURO: Denies confusion, dizziness MSK: Denies weakness, joint pain/swelling SKIN: Denies jaundice, pruritus Vitals: Vitals: Vital Signs Date Time Temp Pulse Resp B/P (MAP) Pulse Ox O2 Delivery O2 Flow Rate FiO2 11/02/20 15:10 Ventilator 11/02/20 14:56 97.2 89 20 135/84 (101) 97.2 11/02/20 11:32 96 11/02/20 10:29 2.0 Labs: Labs: Laboratory Tests Test 11/01/20 21:12 11/01/20 22:53 11/02/20 10:05 11/02/20 12:35 White Blood Count 12.4 x10^3/uL (4.0-11.0) 15.0 x10^3/uL (4.0-11.0) Red Blood Count 3.65 x10^6/uL (3.50-5.40) 4.01 x10^6/uL (3.50-5.40) Hemoglobin 10.3 g/dL (12.0-15.5) 11.4 g/dL (12.0-15.5) Hematocrit 30.8 % (36.0-47.0) 35.7 % (36.0-47.0) Mean Corpuscular Volume 85 fL (79-100) 89 fL (79-100) Mean Corpuscular Hemoglobin 28 pg (25-35) 29 pg (25-35) Mean Corpuscular Hemoglobin Concent 34 g/dL (31-37) 32 g/dL (31-37) Red Cell Distribution Width 13.7 % (11.5-14.5) 14.2 % (11.5-14.5) Platelet Count 246 x10^3/uL (140-400) 191 x10^3/uL (140-400) Neutrophils (%) (Auto) 70 % (31-73) 75 % (31-73) Lymphocytes (%) (Auto) 21 % (24-48) 16 % (24-48) Monocytes (%) (Auto) 8 % (0-9) 9 % (0-9) Eosinophils (%) (Auto) 1 % (0-3) 1 % (0-3) Basophils (%) (Auto) 0 % (0-3) 0 % (0-3) Neutrophils # (Auto) 8.7 x10^3/uL (1.8-7.7) 11.2 x10^3/uL (1.8-7.7) Lymphocytes # (Auto) 2.6 x10^3/uL (1.0-4.8) 2.3 x10^3/uL (1.0-4.8) Monocytes # (Auto) 1.0 x10^3/uL (0.0-1.1) 1.4 x10^3/uL (0.0-1.1) Eosinophils # (Auto) 0.1 x10^3/uL (0.0-0.7) 0.1 x10^3/uL (0.0-0.7) Basophils # (Auto) 0.0 x10^3/uL (0.0-0.2) 0.0 x10^3/uL (0.0-0.2) Sodium Level 127 mmol/L (136-145) 129 mmol/L (136-145) Potassium Level 4.2 mmol/L (3.5-5.1) 4.7 mmol/L (3.5-5.1) Chloride Level 94 mmol/L (98-107) 95 mmol/L (98-107) Carbon Dioxide Level 18 mmol/L (21-32) 12 mmol/L (21-32) Anion Gap 15 (6-14) 22 (6-14) Blood Urea Nitrogen 54 mg/dL (7-20) 63 mg/dL (7-20) Creatinine 1.8 mg/dL (0.6-1.0) 2.2 mg/dL (0.6-1.0) Estimated GFR (Cockcroft-Gault) 34.3 27.2 BUN/Creatinine Ratio 30 (6-20) 29 (6-20) Glucose Level 151 mg/dL (70-99) 78 mg/dL (70-99) 86 mg/dL (70-99) Calcium Level 8.4 mg/dL (8.5-10.1) 8.4 mg/dL (8.5-10.1) Magnesium Level 3.1 mg/dL (1.8-2.4) Total Bilirubin 1.0 mg/dL (0.2-1.0) 1.9 mg/dL (0.2-1.0) Aspartate Amino Transf (AST/SGOT) 157 U/L (15-37) 309 U/L (15-37) Alanine Aminotransferase (ALT/SGPT) 177 U/L (14-59) 299 U/L (14-59) Alkaline Phosphatase 231 U/L (46-116) 231 U/L (46-116) Total Protein 6.7 g/dL (6.4-8.2) 7.1 g/dL (6.4-8.2) Albumin 2.5 g/dL (3.4-5.0) 2.5 g/dL (3.4-5.0) Albumin/Globulin Ratio 0.6 (1.0-1.7) 0.5 (1.0-1.7) Lipase 135 U/L (73-393) Ethyl Alcohol Level < 10 mg/dL (0-10) SARS-CoV-2 Antigen (Rapid) Negative (NEGATIVE) Bedside Hemoglobin (Calculated) 9.5 g/dL (12-15) Bedside Hematocrit 28 % (36-40) Bedside Arterial pH 7.17 (7.35-7.45) Arterial Blood pH (Temp corrected) 7.17 Bedside Arterial pCO2 32 mmHg (35-45) Arterial Blood pCO2 (Temp correct) 32 mmHg Bedside Arterial pO2 203 mmHg (75-100) Arterial Blood pO2 (Temp corrected) 203 mmHg Bedside Arterial HCO3 12 mmol/L (21-28) Bedside Arterial Total CO2 13 mmol/L (21-32) Arterial Bld O2 Saturation (Measur) 99 % (95-99) Bedside Arterial Blood Base Excess -17 mmol/L (0-3) Bedside FiO2 21.0 Bedside Sodium 129 mmol/L (135-145) Bedside Potassium 4.4 mmol/L (3.5-5.0) Bedside Ionized Calcium (Ashley) 1.01 mmol/L (1.13-1.32) Test 11/02/20 12:57 11/02/20 13:00 11/02/20 14:22 White Blood Count 14.3 x10^3/uL (4.0-11.0) Red Blood Count 3.24 x10^6/uL (3.50-5.40) Hemoglobin 9.2 g/dL (12.0-15.5) Hematocrit 28.3 % (36.0-47.0) Mean Corpuscular Volume 87 fL (79-100) Mean Corpuscular Hemoglobin 28 pg (25-35) Mean Corpuscular Hemoglobin Concent 33 g/dL (31-37) Red Cell Distribution Width 14.0 % (11.5-14.5) Platelet Count 168 x10^3/uL (140-400) Prothrombin Time 19.6 SEC (11.7-14.0) Prothromb Time International Ratio 1.7 (0.8-1.1) Activated Partial Thromboplast Time 29 SEC (24-38) Sodium Level 134 mmol/L (136-145) Potassium Level 5.1 mmol/L (3.5-5.1) Chloride Level 97 mmol/L (98-107) Carbon Dioxide Level 16 mmol/L (21-32) Anion Gap 21 (6-14) Blood Urea Nitrogen 64 mg/dL (7-20) Creatinine 2.5 mg/dL (0.6-1.0) Estimated GFR (Cockcroft-Gault) 23.5 BUN/Creatinine Ratio 26 (6-20) Glucose Level 78 mg/dL (70-99) Calcium Level 7.1 mg/dL (8.5-10.1) Total Bilirubin 1.7 mg/dL (0.2-1.0) Aspartate Amino Transf (AST/SGOT) 388 U/L (15-37) Alanine Aminotransferase (ALT/SGPT) 338 U/L (14-59) Alkaline Phosphatase 184 U/L (46-116) Total Protein 5.0 g/dL (6.4-8.2) Albumin 2.0 g/dL (3.4-5.0) Albumin/Globulin Ratio 0.7 (1.0-1.7) O2 Saturation 98 % (92-99) Arterial Blood pH 7.18 (7.35-7.45) Arterial Blood pH (Temp corrected) 7.19 Arterial Blood pCO2 at Patient Temp 36 mmHg (35-46) Arterial Blood pCO2 (Temp correct) 35 mmHg Arterial Blood pO2 at Patient Temp 149 mmHg (65-108) Arterial Blood pO2 (Temp corrected) 144 mmHg Arterial Blood HCO3 13 mmol/L (21-28) Arterial Blood Base Excess -14 mmol/L (-3-3) FiO2 100 Allergies: Coded Allergies: No Known Drug Allergies (Unverified , 11/01/20) Medications: Current Medications Medications (Trade) Dose Ordered Sig/Katherine Route PRN Reason Start Time Stop Time Status Last Admin Dose Admin Sodium Chloride 1,000 ml @ 1,000 mls/hr 1X ONCE IV 11/01/20 21:30 11/01/20 22:29 DC 11/01/20 21:20 Ondansetron HCl (Zofran) 4 mg 1X ONCE IVP 11/01/20 21:30 11/01/20 21:31 DC 11/01/20 21:18 Famotidine (Pepcid Vial) 20 mg 1X ONCE IVP 11/01/20 21:30 11/01/20 21:31 DC 11/01/20 21:19 Fentanyl Citrate (Fentanyl 2ml Vial) 50 mcg PRN Q15MIN PRN IV PAIN GREATER THAN 3/10 11/01/20 21:00 11/02/20 20:59 11/01/20 21:19 Fentanyl Citrate (Fentanyl 2ml Vial) 50 mcg PRN Q1HR PRN IV SEVERE PAIN 7-10 11/01/20 23:00 11/02/20 22:59 11/02/20 03:47 Sodium Chloride 1,000 ml @ 100 mls/hr 1X ONCE IV 11/01/20 23:00 11/02/20 09:03 DC 11/02/20 01:28 Morphine Sulfate (Morphine Sulfate) 2 mg PRN Q1HR PRN IV MODERATE PAIN 4-6 11/02/20 07:00 11/02/20 08:35 Fentanyl Citrate (Fentanyl 2ml Vial) 50 mcg PRN Q5MIN PRN IVP MODERATE TO SEVERE PAIN 11/02/20 08:15 11/03/20 08:14 11/02/20 11:20 Piperacillin Sod/ Tazobactam Sod 2.25 gm/Sodium Chloride 50 ml @ 100 mls/hr Q6HRS IV 11/02/20 10:00 11/02/20 11:34 Iohexol (Omnipaque 300 Mg/ml) 50 ml STK-MED ONCE .ROUTE 11/02/20 11:28 11/02/20 11:28 DC 11/02/20 12:25 Bupivacaine HCl (Sensorcaine Mpf 0.5%) 30 ml STK-MED ONCE .ROUTE 11/02/20 11:28 11/02/20 11:28 DC 11/02/20 12:25 Norepinephrine Bitartrate 8 mg/ Dextrose 258 ml @ 0 mls/hr CONT PRN IV PER PROTOCOL 11/02/20 12:30 11/02/20 15:03 DC 11/02/20 15:03 Cellulose (Surgicel Hemostat 4x8) 1 each STK-MED ONCE .ROUTE 11/02/20 12:38 11/02/20 12:39 DC 11/02/20 12:46 Cellulose (Surgicel Hemostat 4x8) 1 each STK-MED ONCE TP 11/02/20 12:47 11/02/20 12:49 DC 11/02/20 12:47 Cellulose (Surgicel Hemostat 4x8) 1 each STK-MED ONCE .ROUTE 11/02/20 12:56 11/02/20 12:56 DC 11/02/20 13:01 Fentanyl Citrate 30 ml @ 2.5 mls/hr CONT PRN IV SEE PROTOCOL 11/02/20 14:00 11/02/20 14:41 Midazolam HCl 100 ml @ 1 mls/hr CONT PRN IV SEE PROTOCOL 11/02/20 14:00 11/02/20 14:29 Sodium Bicarbonate (Sodium Bicarb Adult 8.4% Syr) 100 meq 1X ONCE IV 11/02/20 14:45 11/02/20 14:46 DC 11/02/20 14:44 Sodium Chloride 1,000 ml @ 1,000 mls/hr 1X ONCE IV 11/02/20 15:00 11/02/20 15:59 11/02/20 15:00 Imaging: Imaging: CT A/P 11/01 IMPRESSION: 1. Mild prominence of the right renal collecting system and perinephric stranding. Correlate with urinalysis for infection. 2. Cholelithiasis 3. Trace bilateral pleural effusions. Mild bilateral spastic the right lung base may relate to atelectasis or developing infectious process. Abd US 11/01 IMPRESSION: 1. Cholelithiasis with findings suspicious for acute cholecystitis. If necessary HIDA scan can definitively evaluate. 2. Mild hepatic steatosis. 3. No right-sided hydronephrosis. IOC 11/02 IMPRESSION: Intraoperative cholangiogram, without evidence of a retained biliary stone or stricture. CXR 11/02 IMPRESSION: 1. Right internal jugular catheter with the tip in the superior vena cava, endotracheal tube within the distal trachea and nasogastric tube within the stomach. 2. Partially consolidated right greater than left upper lobe infiltrate superimposed on diffuse interstitial infiltrate. TO confirm resolution. PE: GEN: intubated HEENT: Atraumatic LUNGS: diminished HEART: RRR +murm ABD: quiet, soft, MATTHEW drain w/ dark blood EXTREMITY: No edema SKIN: some cyanosis NEURO/PSYCH: sedated, extremities still flacid from OR A/P: A/P: Calculous cholecystitis s/p cholecystectomy 11/02 - normal IOC Hypotension, heart murmur Leukocytosis, anemia, coagulopathy, SHINE, elevated LFTs Rapid COVID negative 11/01 -- Check Hepatitis panel, follow LFTs. JACKELINE CASTILLO Nov 02, 2020 15:54
[2020-11-02] MEDS: VASOPRESSIN 20 UNIT in IV DEXTROSE 5% 100ML 100 ML IV PRN ×2 (16:25→23:15)
--- NOTE | 2020-11-02 16:41 | PDOC ---
PULMONARY PROGRESS NOTES DATE: 11/02/20 TIME: 16:40 Vitals Vital Signs Date Time Temp Pulse Resp B/P (MAP) Pulse Ox O2 Delivery O2 Flow Rate FiO2 11/02/20 15:30 96.8 96 20 140/88 (105) Ventilator 96.8 11/02/20 11:32 96 11/02/20 10:29 2.0 Labs Laboratory Tests Test 11/01/20 21:12 11/01/20 22:53 11/02/20 10:05 11/02/20 12:35 White Blood Count 12.4 x10^3/uL (4.0-11.0) 15.0 x10^3/uL (4.0-11.0) Red Blood Count 3.65 x10^6/uL (3.50-5.40) 4.01 x10^6/uL (3.50-5.40) Hemoglobin 10.3 g/dL (12.0-15.5) 11.4 g/dL (12.0-15.5) Hematocrit 30.8 % (36.0-47.0) 35.7 % (36.0-47.0) Mean Corpuscular Volume 85 fL (79-100) 89 fL (79-100) Mean Corpuscular Hemoglobin 28 pg (25-35) 29 pg (25-35) Mean Corpuscular Hemoglobin Concent 34 g/dL (31-37) 32 g/dL (31-37) Red Cell Distribution Width 13.7 % (11.5-14.5) 14.2 % (11.5-14.5) Platelet Count 246 x10^3/uL (140-400) 191 x10^3/uL (140-400) Neutrophils (%) (Auto) 70 % (31-73) 75 % (31-73) Lymphocytes (%) (Auto) 21 % (24-48) 16 % (24-48) Monocytes (%) (Auto) 8 % (0-9) 9 % (0-9) Eosinophils (%) (Auto) 1 % (0-3) 1 % (0-3) Basophils (%) (Auto) 0 % (0-3) 0 % (0-3) Neutrophils # (Auto) 8.7 x10^3/uL (1.8-7.7) 11.2 x10^3/uL (1.8-7.7) Lymphocytes # (Auto) 2.6 x10^3/uL (1.0-4.8) 2.3 x10^3/uL (1.0-4.8) Monocytes # (Auto) 1.0 x10^3/uL (0.0-1.1) 1.4 x10^3/uL (0.0-1.1) Eosinophils # (Auto) 0.1 x10^3/uL (0.0-0.7) 0.1 x10^3/uL (0.0-0.7) Basophils # (Auto) 0.0 x10^3/uL (0.0-0.2) 0.0 x10^3/uL (0.0-0.2) Sodium Level 127 mmol/L (136-145) 129 mmol/L (136-145) Potassium Level 4.2 mmol/L (3.5-5.1) 4.7 mmol/L (3.5-5.1) Chloride Level 94 mmol/L (98-107) 95 mmol/L (98-107) Carbon Dioxide Level 18 mmol/L (21-32) 12 mmol/L (21-32) Anion Gap 15 (6-14) 22 (6-14) Blood Urea Nitrogen 54 mg/dL (7-20) 63 mg/dL (7-20) Creatinine 1.8 mg/dL (0.6-1.0) 2.2 mg/dL (0.6-1.0) Estimated GFR (Cockcroft-Gault) 34.3 27.2 BUN/Creatinine Ratio 30 (6-20) 29 (6-20) Glucose Level 151 mg/dL (70-99) 78 mg/dL (70-99) 86 mg/dL (70-99) Calcium Level 8.4 mg/dL (8.5-10.1) 8.4 mg/dL (8.5-10.1) Magnesium Level 3.1 mg/dL (1.8-2.4) Total Bilirubin 1.0 mg/dL (0.2-1.0) 1.9 mg/dL (0.2-1.0) Aspartate Amino Transf (AST/SGOT) 157 U/L (15-37) 309 U/L (15-37) Alanine Aminotransferase (ALT/SGPT) 177 U/L (14-59) 299 U/L (14-59) Alkaline Phosphatase 231 U/L (46-116) 231 U/L (46-116) Total Protein 6.7 g/dL (6.4-8.2) 7.1 g/dL (6.4-8.2) Albumin 2.5 g/dL (3.4-5.0) 2.5 g/dL (3.4-5.0) Albumin/Globulin Ratio 0.6 (1.0-1.7) 0.5 (1.0-1.7) Lipase 135 U/L (73-393) Ethyl Alcohol Level < 10 mg/dL (0-10) Coronavirus (PCR) Not detected (Not Detected) SARS-CoV-2 Antigen (Rapid) Negative (NEGATIVE) Bedside Hemoglobin (Calculated) 9.5 g/dL (12-15) Bedside Hematocrit 28 % (36-40) Bedside Arterial pH 7.17 (7.35-7.45) Arterial Blood pH (Temp corrected) 7.17 Bedside Arterial pCO2 32 mmHg (35-45) Arterial Blood pCO2 (Temp correct) 32 mmHg Bedside Arterial pO2 203 mmHg (75-100) Arterial Blood pO2 (Temp corrected) 203 mmHg Bedside Arterial HCO3 12 mmol/L (21-28) Bedside Arterial Total CO2 13 mmol/L (21-32) Arterial Bld O2 Saturation (Measur) 99 % (95-99) Bedside Arterial Blood Base Excess -17 mmol/L (0-3) Bedside FiO2 21.0 Bedside Sodium 129 mmol/L (135-145) Bedside Potassium 4.4 mmol/L (3.5-5.0) Bedside Ionized Calcium (Ashley) 1.01 mmol/L (1.13-1.32) Test 11/02/20 12:57 11/02/20 13:00 11/02/20 14:22 White Blood Count 14.3 x10^3/uL (4.0-11.0) Red Blood Count 3.24 x10^6/uL (3.50-5.40) Hemoglobin 9.2 g/dL (12.0-15.5) Hematocrit 28.3 % (36.0-47.0) Mean Corpuscular Volume 87 fL (79-100) Mean Corpuscular Hemoglobin 28 pg (25-35) Mean Corpuscular Hemoglobin Concent 33 g/dL (31-37) Red Cell Distribution Width 14.0 % (11.5-14.5) Platelet Count 168 x10^3/uL (140-400) Prothrombin Time 19.6 SEC (11.7-14.0) Prothromb Time International Ratio 1.7 (0.8-1.1) Activated Partial Thromboplast Time 29 SEC (24-38) Sodium Level 134 mmol/L (136-145) Potassium Level 5.1 mmol/L (3.5-5.1) Chloride Level 97 mmol/L (98-107) Carbon Dioxide Level 16 mmol/L (21-32) Anion Gap 21 (6-14) Blood Urea Nitrogen 64 mg/dL (7-20) Creatinine 2.5 mg/dL (0.6-1.0) Estimated GFR (Cockcroft-Gault) 23.5 BUN/Creatinine Ratio 26 (6-20) Glucose Level 78 mg/dL (70-99) Calcium Level 7.1 mg/dL (8.5-10.1) Iron Level 61 ug/dL (50-170) Total Iron Binding Capacity 224 ug/dL (250-450) Iron Saturation 27 % (15-34) Total Bilirubin 1.7 mg/dL (0.2-1.0) Aspartate Amino Transf (AST/SGOT) 388 U/L (15-37) Alanine Aminotransferase (ALT/SGPT) 338 U/L (14-59) Alkaline Phosphatase 184 U/L (46-116) Total Protein 5.0 g/dL (6.4-8.2) Albumin 2.0 g/dL (3.4-5.0) Albumin/Globulin Ratio 0.7 (1.0-1.7) O2 Saturation 98 % (92-99) Arterial Blood pH 7.18 (7.35-7.45) Arterial Blood pH (Temp corrected) 7.19 Arterial Blood pCO2 at Patient Temp 36 mmHg (35-46) Arterial Blood pCO2 (Temp correct) 35 mmHg Arterial Blood pO2 at Patient Temp 149 mmHg (65-108) Arterial Blood pO2 (Temp corrected) 144 mmHg Arterial Blood HCO3 13 mmol/L (21-28) Arterial Blood Base Excess -14 mmol/L (-3-3) FiO2 100 Laboratory Tests Test 11/01/20 21:12 11/01/20 22:53 11/02/20 10:05 11/02/20 12:35 White Blood Count 12.4 x10^3/uL (4.0-11.0) 15.0 x10^3/uL (4.0-11.0) Red Blood Count 3.65 x10^6/uL (3.50-5.40) 4.01 x10^6/uL (3.50-5.40) Hemoglobin 10.3 g/dL (12.0-15.5) 11.4 g/dL (12.0-15.5) Hematocrit 30.8 % (36.0-47.0) 35.7 % (36.0-47.0) Mean Corpuscular Volume 85 fL (79-100) 89 fL (79-100) Mean Corpuscular Hemoglobin 28 pg (25-35) 29 pg (25-35) Mean Corpuscular Hemoglobin Concent 34 g/dL (31-37) 32 g/dL (31-37) Red Cell Distribution Width 13.7 % (11.5-14.5) 14.2 % (11.5-14.5) Platelet Count 246 x10^3/uL (140-400) 191 x10^3/uL (140-400) Neutrophils (%) (Auto) 70 % (31-73) 75 % (31-73) Lymphocytes (%) (Auto) 21 % (24-48) 16 % (24-48) Monocytes (%) (Auto) 8 % (0-9) 9 % (0-9) Eosinophils (%) (Auto) 1 % (0-3) 1 % (0-3) Basophils (%) (Auto) 0 % (0-3) 0 % (0-3) Neutrophils # (Auto) 8.7 x10^3/uL (1.8-7.7) 11.2 x10^3/uL (1.8-7.7) Lymphocytes # (Auto) 2.6 x10^3/uL (1.0-4.8) 2.3 x10^3/uL (1.0-4.8) Monocytes # (Auto) 1.0 x10^3/uL (0.0-1.1) 1.4 x10^3/uL (0.0-1.1) Eosinophils # (Auto) 0.1 x10^3/uL (0.0-0.7) 0.1 x10^3/uL (0.0-0.7) Basophils # (Auto) 0.0 x10^3/uL (0.0-0.2) 0.0 x10^3/uL (0.0-0.2) Sodium Level 127 mmol/L (136-145) 129 mmol/L (136-145) Potassium Level 4.2 mmol/L (3.5-5.1) 4.7 mmol/L (3.5-5.1) Chloride Level 94 mmol/L (98-107) 95 mmol/L (98-107) Carbon Dioxide Level 18 mmol/L (21-32) 12 mmol/L (21-32) Anion Gap 15 (6-14) 22 (6-14) Blood Urea Nitrogen 54 mg/dL (7-20) 63 mg/dL (7-20) Creatinine 1.8 mg/dL (0.6-1.0) 2.2 mg/dL (0.6-1.0) Estimated GFR (Cockcroft-Gault) 34.3 27.2 BUN/Creatinine Ratio 30 (6-20) 29 (6-20) Glucose Level 151 mg/dL (70-99) 78 mg/dL (70-99) 86 mg/dL (70-99) Calcium Level 8.4 mg/dL (8.5-10.1) 8.4 mg/dL (8.5-10.1) Magnesium Level 3.1 mg/dL (1.8-2.4) Total Bilirubin 1.0 mg/dL (0.2-1.0) 1.9 mg/dL (0.2-1.0) Aspartate Amino Transf (AST/SGOT) 157 U/L (15-37) 309 U/L (15-37) Alanine Aminotransferase (ALT/SGPT) 177 U/L (14-59) 299 U/L (14-59) Alkaline Phosphatase 231 U/L (46-116) 231 U/L (46-116) Total Protein 6.7 g/dL (6.4-8.2) 7.1 g/dL (6.4-8.2) Albumin 2.5 g/dL (3.4-5.0) 2.5 g/dL (3.4-5.0) Albumin/Globulin Ratio 0.6 (1.0-1.7) 0.5 (1.0-1.7) Lipase 135 U/L (73-393) Ethyl Alcohol Level < 10 mg/dL (0-10) Coronavirus (PCR) Not detected (Not Detected) SARS-CoV-2 Antigen (Rapid) Negative (NEGATIVE) Bedside Hemoglobin (Calculated) 9.5 g/dL (12-15) Bedside Hematocrit 28 % (36-40) Bedside Arterial pH 7.17 (7.35-7.45) Arterial Blood pH (Temp corrected) 7.17 Bedside Arterial pCO2 32 mmHg (35-45) Arterial Blood pCO2 (Temp correct) 32 mmHg Bedside Arterial pO2 203 mmHg (75-100) Arterial Blood pO2 (Temp corrected) 203 mmHg Bedside Arterial HCO3 12 mmol/L (21-28) Bedside Arterial Total CO2 13 mmol/L (21-32) Arterial Bld O2 Saturation (Measur) 99 % (95-99) Bedside Arterial Blood Base Excess -17 mmol/L (0-3) Bedside FiO2 21.0 Bedside Sodium 129 mmol/L (135-145) Bedside Potassium 4.4 mmol/L (3.5-5.0) Bedside Ionized Calcium (Ashley) 1.01 mmol/L (1.13-1.32) Test 11/02/20 12:57 11/02/20 13:00 11/02/20 14:22 White Blood Count 14.3 x10^3/uL (4.0-11.0) Red Blood Count 3.24 x10^6/uL (3.50-5.40) Hemoglobin 9.2 g/dL (12.0-15.5) Hematocrit 28.3 % (36.0-47.0) Mean Corpuscular Volume 87 fL (79-100) Mean Corpuscular Hemoglobin 28 pg (25-35) Mean Corpuscular Hemoglobin Concent 33 g/dL (31-37) Red Cell Distribution Width 14.0 % (11.5-14.5) Platelet Count 168 x10^3/uL (140-400) Prothrombin Time 19.6 SEC (11.7-14.0) Prothromb Time International Ratio 1.7 (0.8-1.1) Activated Partial Thromboplast Time 29 SEC (24-38) Sodium Level 134 mmol/L (136-145) Potassium Level 5.1 mmol/L (3.5-5.1) Chloride Level 97 mmol/L (98-107) Carbon Dioxide Level 16 mmol/L (21-32) Anion Gap 21 (6-14) Blood Urea Nitrogen 64 mg/dL (7-20) Creatinine 2.5 mg/dL (0.6-1.0) Estimated GFR (Cockcroft-Gault) 23.5 BUN/Creatinine Ratio 26 (6-20) Glucose Level 78 mg/dL (70-99) Calcium Level 7.1 mg/dL (8.5-10.1) Iron Level 61 ug/dL (50-170) Total Iron Binding Capacity 224 ug/dL (250-450) Iron Saturation 27 % (15-34) Total Bilirubin 1.7 mg/dL (0.2-1.0) Aspartate Amino Transf (AST/SGOT) 388 U/L (15-37) Alanine Aminotransferase (ALT/SGPT) 338 U/L (14-59) Alkaline Phosphatase 184 U/L (46-116) Total Protein 5.0 g/dL (6.4-8.2) Albumin 2.0 g/dL (3.4-5.0) Albumin/Globulin Ratio 0.7 (1.0-1.7) O2 Saturation 98 % (92-99) Arterial Blood pH 7.18 (7.35-7.45) Arterial Blood pH (Temp corrected) 7.19 Arterial Blood pCO2 at Patient Temp 36 mmHg (35-46) Arterial Blood pCO2 (Temp correct) 35 mmHg Arterial Blood pO2 at Patient Temp 149 mmHg (65-108) Arterial Blood pO2 (Temp corrected) 144 mmHg Arterial Blood HCO3 13 mmol/L (21-28) Arterial Blood Base Excess -14 mmol/L (-3-3) FiO2 100 Medications Active Scripts Medications Dose Route/Sig Max Daily Dose Days Date Category Ibuprofen 800 Mg Tablet 800 Mg PO PRN Q6HRS PRN 11/01/20 Reported Impression . Respiratory failure, multifactorial, status post cholecystectomy, hypotension, suspect sepsis. See orders. ALEXA NORIEGA MD Nov 02, 2020 16:40
[2020-11-02] MEDS ORDERED: FUROSEMIDE 40 MG/4 ML VIAL. IVP ONE (17:15)
[2020-11-02] MEDS: MICAFUNGIN 100 MG in IV DEXTROSE 5% 100ML 100 ML IV SCH (17:40)
[2020-11-02 17:44] LABS: BASE EXCESS ABG -16 mmol/L (-3-3); CORRECTED PCO2 ABG 27 mmHg; CORRECTED PH ABG 7.22; CORRECTED PO2 ABG 189 mmHg; HCO3 ABG 11 mmol/L (21-28); PCO2 ABG 28 mmHg (35-46); PO2 ABG 193 mmHg (65-108); SAT O2 ABG 99 % (92-99)
[2020-11-02 17:45] LABS: FIO2 ABG 100
--- NOTE | 2020-11-02 18:05 | CONS ---
DATE OF CONSULTATION: 11/02/2020 REFERRING PHYSICIAN: Dr. Delarosa. REASON FOR CONSULTATION: Severe sepsis. HISTORY OF PRESENT ILLNESS: A 65-year-old female with no significant past medical history presented to the ER with complaints of abdominal pain, nausea and vomiting. The patient underwent CT of the abdomen and pelvis, which showed cholelithiasis with mild right perinephric stranding and ultrasound right upper quadrant showed cholelithiasis with findings suspicious for acute cholecystitis. The patient was seen by General Surgery. She underwent a laparoscopic cholecystectomy with intraoperative cholangiogram, findings of gallbladder appeared normal without changes of acute cholecystitis. No other abdominal process identified and no visible abdominal source of sepsis. The patient was started on Zosyn. She was intubated postoperatively. Currently, requiring pressure support. ID consultation has been requested for antibiotic management. History obtained from chart and medical staff as the patient is unable to give any history. PAST MEDICAL HISTORY: DJD. PAST SURGICAL HISTORY: None. FAMILY HISTORY: As per HPI. SOCIAL HISTORY: No smoking, ETOH, or illicit drug use. CURRENT MEDICATIONS: Zosyn, vasopressin, midazolam, fentanyl, hydromorphone, lidocaine, Ringer's solution, fentanyl, bisacodyl, zolpidem, and Zofran. ALLERGIES: No known drug allergies. PHYSICAL EXAMINATION: VITAL SIGNS: Temperature 97.2, temperature this morning was 92.1, pulse 89, respiratory rate 20, blood pressure 135/84, oxygen saturation 96% on FiO2 100%, PEEP of 5. GENERAL: Well-developed, well-nourished female. Intubated, sedated. HEENT: Normocephalic, atraumatic. ETT OG tube in place. NECK: Right IJ in place. LUNGS: Clear anteriorly. HEART: S1, S2, systolic murmur at the left sternal border. ABDOMEN: Obese, distended. Laparoscopic incision intact, MATTHEW drain in place. Bowel sounds hypoactive. EXTREMITIES: No edema, no cyanosis. DERMATOLOGIC: Warm, dry. No generalized rash. NEUROLOGIC: Intubated. PSYCHIATRIC: Unable to assess. GENITOURINARY: Soler in place. LINES: Right IJ in place, art line in place. LABORATORY DATA: WBC 14.3, was 15.0 in a.m. hemoglobin 9.2, was 11.4, hematocrit 28.3, creatinine 168, neutrophils 75, lymphocytes 16. Sodium 134, was 129, potassium 5.1, chloride 97, bicarbonate 16, BUN 64, creatinine 2.5, was 1.8 on presentation. Total bilirubin 1.7, AST 388, ALT 338, alkaline phosphatase 184, total protein 5.0, albumin 2.0, lipase 135. Ethyl alcohol less than 10. SARS COVID rapid negative. IMAGING: Abdominal and pelvic CT shows some mild prominence of the right renal collecting system and perinephric stranding. Correlates with urinalysis for infection. Cholelithiasis. Trace bilateral pleural effusion, mild bilateral spastic right lung base, which may relate to atelectasis or developing infectious process. Ultrasound of the report shows cholelithiasis findings suspicious for acute cholecystitis. Mild hepatic steatosis, no right sided hydronephrosis. Cholangiogram operative shows without evidence of retained biliary stone or stricture. There is contrast opacification of the biliary tree and proximal small bowel. Chest x-ray shows right internal jugular catheter with tip in the superior vena cava. Endotracheal tube within the distal trachea and nasogastric tube within the stomach, partially consolidated right greater than left upper lobe infiltrate, superimposed on diffuse interstitial infiltrate. IMPRESSION: 1. Severe Sepsis source unclear at this time GB was normal intraoperatively. 2. Abdominal pain with nausea and vomiting present on admission. Suspected cholecystitis, cholelithiasis, Nov 02 2020 status post laparoscopic cholecystectomy with gallbladder appeared normal without any changes of acute cholecystitis. No other abdominal process identified and no visible abdominal source of sepsis intraoperatively. 3. Leukocytosis. 4. Anemia. 5. Acute kidney injury. 6. Abnormal liver function tests. POA 7. Acute respiratory failure, postoperative. 8. Hypothermia. 9. Protein-calorie malnutrition. 10. Severe metabolic acidosis. RECOMMENDATIONS: 1. Continue Zosyn. 2. Add Zyvox and micafungin. 3. Obtain UA, blood culture and urine cultures. 4. Obtain lactic acid. 5. Obtain acute hepatitis panel. 6. Critically ill. 7. Prognosis is guarded. Discussed with RN. Thank you for allowing me to participate in this patient's care. If you have any questions, do not hesitate to contact me. Discussed with nursing staff. CCT time 40 minutes. SMITHA STRICKLAND MD DR: VENKAT/nts JOB#: [id number] / [id number] RANDOLPH
[2020-11-02] MEDS: SODIUM BICARBONATE VIAL 150 MEQ in IV DEXTROSE 5% 1,000 ML IV PRN (18:59)
[2020-11-02 19:17] LABS: BILIRUBIN,URINE NEGATIVE (NEG); CLARITY,URINE CLOUDY; COLOR,URINE AMBER; NITRITE,URINE NEGATIVE (NEG); PROTEIN,URINE 30 mg/dL (NEG-TRACE)
[2020-11-02 19:24] LABS: HYALINE CASTS, URINE MODERATE /HPF
[2020-11-02 19:26] LABS: AMORPHOUS SEDIMENT,UR PRESENT /HPF; BACTERIA,URINE 0 /HPF (0-FEW); WAXY CASTS,URINE OCCASIONAL /HPF
[2020-11-02 19:29] LABS: AMPHETAMINE/METHAMPHETAMINE NEG (NEG); BARBITURATES NEG (NEG); BENZODIAZEPINES POS (NEG); CANNABINOIDS POS (NEG); COCAINE NEG (NEG); METHADONE NEG (NEG); OPIATES POS (NEG); PHENCYCLIDINE NEG (NEG)
--- NOTE | 2020-11-02 20:27 | CONS ---
DATE OF CONSULTATION: 11/02/2020 ATTENDING PHYSICIAN: Dr. Cervantes. REASON FOR CONSULTATION: The patient is seen in Pulmonary consultation at the request of Dr. Carcamo for respiratory failure, metabolic acidosis. HISTORY OF PRESENT ILLNESS: The patient is a 65-year-old who presented with right upper quadrant pain, vomiting x3 days, pain persisted, no diarrhea. She was evaluated by Surgery. It was felt that she had acalculous cholecystitis. Postoperative diagnosis was the same. The patient underwent a laparoscopic cholecystectomy with intraoperative cholangiogram. During her stay in the operating room, the patient was noted to be hypotensive. She was resuscitated with fluids. An arterial blood gas was obtained, which revealed an acidosis, pH of 7.17, PaCO2 of 32, pO2 of 203 with a bicarb of 12. The patient presented yesterday. She did have a low carbon dioxide level on her electrolytes. Sodium was low. BUN and creatinine were elevated. Calcium level was low. Liver chemistries were elevated. I was asked to see her in consultation for vent management. She had a rapid COVID-19 test, which was negative. She had a chest x-ray, which I reviewed revealing patchy consolidated right greater than left upper lobe infiltrates. Her CAT scan of the abdomen and pelvis revealed cholelithiasis. There was trace bilateral pleural effusion. The patient was seen in the intensive care unit. She was on assist control ventilation with a high minute ventilation. Repeat arterial blood gas revealed a pH of 7.19, PaCO2 of 36, pO2 of 149, bicarbonate was 13. She was receiving IV sodium bicarbonate. She was also hypotensive, receiving Levophed. PAST MEDICAL HISTORY: Otherwise remarkable for obesity, arthritis. According to the current documentation, she has no significant past medical history. ALLERGIES: No known drug allergies. SOCIAL HISTORY: There is no history given of tobacco use. REVIEW OF SYSTEMS: Unobtainable secondary to the patient's condition. CURRENT MEDICATION LIST: Reviewed. PHYSICAL EXAMINATION: VITAL SIGNS: Stable. O2 saturation greater than 92%. HEENT: Eyes: The sclerae were nonicteric. NECK: Jugular venous distention could not be assessed secondary to body habitus. CHEST: Full expansion. LUNGS: Clear anteriorly. CARDIOVASCULAR: Regular rate and rhythm with a grade 4/6 systolic ejection murmur, heard best at the left sternal border and axillary, compatible with mitral regurgitation. ABDOMEN: Obese. EXTREMITIES: No clubbing or cyanosis. Minimal edema. LABORATORY DATA: Reviewed. White count was noted. Hemoglobin and hematocrit were noted. Electrolytes were noted. BUN and creatinine were noted. IMPRESSION: 1. Acute hypoxemic respiratory failure, multifactorial, expected status post laparoscopic cholecystectomy. 2. Severe metabolic acidosis, suspect combination of renal failure and sepsis. 3. Acalculous cholecystitis, status post cholecystectomy. 4. Elevated liver chemistries. Etiology unclear, may be related to sepsis. 5. Small bilateral effusions. 6. Morbid obesity. 7. Acute renal failure. 8. Hyponatremia. PLAN: 1. We will continue support with current ventilator, increase minute ventilation to normalize pH. 2. IV sodium bicarbonate. 3. Consult Nephrology and Cardiology, already performed. 4. Empiric antibiotics. 5. Monitor labs closely. 6. Rule out hepatitis. 7. We will obtain PCR for SARS-CoV-2, rapid test was negative. I do appreciate the privilege in sharing in the patient's care. Total cumulative critical care time from 03:15 to 04:03 p.m. ALEXA NORIEGA MD DR: ALEXYS/myra JOB#: [id number] / [id number]
[2020-11-02] MEDS: FAMOTIDINE 20 MG/2 ML VIAL IVP SCH (20:59)
--- NOTE | 2020-11-02 22:32 | PDOC2 ---
CARDIOLOGY CONSULT NOTE DATE OF SERVICE: DATE: 11/02/20 TIME: 22:25 CHIEF COMPLAINT: abdominal pain HPI: 65 y.o woman admitted to ICU with shock state after original working diagnosis of acute cholecystitis. Taken to OR and GB removed but felt to not be the culprit for her presentation. She is now intubated, hypotensive with severe metabolic acidosis. Cardiology asked to evaluate her for shock etiology. History obtained from chart. PMHX: None SOCHX: No alcohol, tob or illicits per review FAMHX: NC CURRENT MEDS: Current Medications Medications (Trade) Dose Ordered Sig/Katherine Route PRN Reason Start Time Stop Time Status Last Admin Dose Admin Fentanyl Citrate (Fentanyl 2ml Vial) 50 mcg PRN Q1HR PRN IV SEVERE PAIN 7-10 11/01/20 23:00 11/02/20 22:59 11/02/20 03:47 Sodium Chloride 1,000 ml @ 100 mls/hr 1X ONCE IV 11/01/20 23:00 11/02/20 09:03 DC 11/02/20 01:28 Morphine Sulfate (Morphine Sulfate) 2 mg PRN Q1HR PRN IV MODERATE PAIN 4-6 11/02/20 07:00 11/02/20 08:35 Fentanyl Citrate (Fentanyl 2ml Vial) 50 mcg PRN Q5MIN PRN IVP MODERATE TO SEVERE PAIN 11/02/20 08:15 11/03/20 08:14 11/02/20 11:20 Piperacillin Sod/ Tazobactam Sod 2.25 gm/Sodium Chloride 50 ml @ 100 mls/hr Q6HRS IV 11/02/20 10:00 11/02/20 18:46 Iohexol (Omnipaque 300 Mg/ml) 50 ml STK-MED ONCE .ROUTE 11/02/20 11:28 11/02/20 11:28 DC 11/02/20 12:25 Bupivacaine HCl (Sensorcaine Mpf 0.5%) 30 ml STK-MED ONCE .ROUTE 11/02/20 11:28 11/02/20 11:28 DC 11/02/20 12:25 Norepinephrine Bitartrate 8 mg/ Dextrose 258 ml @ 0 mls/hr CONT PRN IV PER PROTOCOL 11/02/20 12:30 11/02/20 15:03 DC 11/02/20 15:03 Cellulose (Surgicel Hemostat 4x8) 1 each STK-MED ONCE .ROUTE 11/02/20 12:38 11/02/20 12:39 DC 11/02/20 12:46 Cellulose (Surgicel Hemostat 4x8) 1 each STK-MED ONCE TP 11/02/20 12:47 11/02/20 12:49 DC 11/02/20 12:47 Cellulose (Surgicel Hemostat 4x8) 1 each STK-MED ONCE .ROUTE 11/02/20 12:56 11/02/20 12:56 DC 11/02/20 13:01 Fentanyl Citrate 30 ml @ 2.5 mls/hr CONT PRN IV SEE PROTOCOL 11/02/20 14:00 11/02/20 14:41 Midazolam HCl 100 ml @ 1 mls/hr CONT PRN IV SEE PROTOCOL 11/02/20 14:00 11/02/20 14:29 Sodium Bicarbonate (Sodium Bicarb Adult 8.4% Syr) 100 meq 1X ONCE IV 11/02/20 14:45 11/02/20 14:46 DC 11/02/20 14:44 Sodium Chloride 1,000 ml @ 1,000 mls/hr 1X ONCE IV 11/02/20 15:00 11/02/20 15:59 DC 11/02/20 15:00 Vasopressin 20 unit/Dextrose 101 ml @ 12 mls/hr CONT PRN IV SEE I/O RECORD 11/02/20 15:15 11/02/20 16:25 Linezolid/Dextrose 300 ml @ 300 mls/hr Q12HR IV 11/02/20 17:00 11/02/20 16:26 Famotidine (Pepcid Vial) 20 mg QHS IVP 11/02/20 21:00 11/02/20 20:59 Furosemide (Lasix) 40 mg 1X ONCE IVP 11/02/20 17:15 11/02/20 17:16 DC 11/02/20 17:47 Sodium Chloride 1,000 ml @ 1,000 mls/hr 1X ONCE IV 11/02/20 17:30 11/02/20 18:29 DC 11/02/20 17:30 Micafungin Sodium 100 mg/Dextrose 100 ml @ 100 mls/hr Q24H IV 11/02/20 18:00 11/02/20 17:40 Sodium Bicarbonate 150 meq/Dextrose 1,150 ml @ 150 mls/hr Q7H40M PRN IV IV CONT. 11/02/20 19:00 11/02/20 18:59 ALLERGIES: Allergies Coded Allergies Type Severity Reaction Last Updated Verified No Known Drug Allergies 11/01/20 No ROS: Unable to be obtained as patient is intubated PHYSICAL EXAM: Vital Signs/I&O: Vital Signs Date Time Temp Pulse Resp B/P (MAP) Pulse Ox O2 Delivery O2 Flow Rate FiO2 11/02/20 21:00 98.1 87 28 96/71 (79) 100 Ventilator 98.1 11/02/20 15:11 2.0 I & O 11/01/20 11/01/20 11/02/20 15:00 23:00 07:00 Intake Total 800 ml Balance 800 ml Physical Exam: She is sedated, non-responsive. 100% FiO2 Non focal neuro exam. Normal heart tones with moderate MR noted. abd mildly distended. No edema. 1+ radial pulses. DIAGNOSTIC TESTING: EKG - Sinus tachycardia Labs reviewed, severe metabolic acidosis with increasing lactate. CXR with bilateral infiltrates, cannot rule out edema as no previous x ray available for comparison. Echo pending. ASSESSMENT: 1. Probable septic shock - source likely PNA as urine and intraabdominal issues ruled out. Her lactate elevation is unlikely to be cardiac as until she came out of OR, she had no significant hypotension recorded. 2. Probable MR - not critical 3. acute resp failure - less likely CHF but will hold fluids and if BP tolerates, attempt diuresis, check CVP in a.m. PLAN: 1. Get echo but lower suspicion for a primary cardiac process, suspect pulm source for infection, no other clear source of lactate elevation and metabolic derangements noted. Supportive care. FE CARNEY MD Nov 02, 2020 22:32
[2020-11-03] VITALS (32 sets, daily range): BP systolic 80–140; BP diastolic 58–88
[2020-11-03] MEDS: PIPERACILLIN/TAZOBACTAM 2.25 GM in IV NORMAL SALINE 50ML 50 ML IV SCH ×4 (00:24→18:15)
[2020-11-03] MEDS: SODIUM BICARBONATE VIAL 150 MEQ in IV DEXTROSE 5% 1,000 ML IV PRN ×2 (02:27→09:33)
[2020-11-03] MEDS: MIDAZOLAM 100mg/100ml NS BAG 100 ML IV PRN ×2 (03:15→18:20)
[2020-11-03] MEDS ORDERED: NOREPINEPHRINE VIAL 8 MG in IV DEXTROSE 5% 250 ML IV PRN (05:30)
[2020-11-03] MEDS ORDERED: PERFLUTREN PROTEIN-A MICROSPHR 0.22 MG/ML 3 ML VIAL. IV ONE ×3 (07:25→15:00)
--- NOTE | 2020-11-03 07:25 | NUR ---
Arterial line unable to draw back blood for lab draws at 0600. Attempted flushing and repositioning with no success. Arterial line was removed by this RN. Attempt was made to get a manual BP with only getting a MAP of 61. [employer] called by [employer] supervisor, plans are to replace arterial line.
--- NOTE | 2020-11-03 07:39 | RAD ---
XR CHEST 1V INDICATION: Reason: RF 108 / Spl. Instructions: / History: . COMPARISON STUDY: 11/02/2020. FINDINGS: Life Support Devices: Stable endotracheal tube, enteric tube, right IJ central venous catheter. Lungs: Normal lung volume. Slightly improved patchy bilateral consolidations. Pleura: Stable pleural spaces. Heart and Mediastinum: Stable cardiomediastinal silhouette and great vessels. Bones and Soft Tissues: Stable regional skeleton and soft tissues. IMPRESSION: 1. Stable life support devices. 2. Slightly improved patchy bilateral consolidations. Electronically signed by: Oswaldo Grewal MD (11/03/2020 7:36 AM) [id number]
[2020-11-03 07:54] LABS: PCO2 IS ARTERIAL 45 mmHg (35-45); PH IS ARTERIAL 7.16 (7.35-7.45); PO2 IS ARTERIAL 184 mmHg (75-100); TCO2 IS ARTERIAL 17 mmol/L (21-32)
[2020-11-03 07:55] LABS: BASE EXCESS IS ARTERIAL -13 mmol/L (0-3); FIO2 IS ARTERIAL 100; HCO3 IS ARTERIAL 16 mmol/L (21-28); SAT O2 IS ARTERIAL 99 % (95-99)
--- NOTE | 2020-11-03 08:30 | PDOC ---
Infectious Disease Note Subjective: Subjective Patient remains intubated/sedated Remains on pressure support Off Adriel hugger Vital Signs: Vital Signs Vital Signs Date Time Temp Pulse Resp B/P (MAP) Pulse Ox O2 Delivery O2 Flow Rate FiO2 11/03/20 08:00 99.9 91 19 99 Ventilator 99.9 11/02/20 15:11 2.0 Physical Exam: PHYSICAL EXAM GENERAL: Well-developed, well-nourished female. Intubated, sedated. HEENT: Normocephalic, atraumatic. ETT OG tube in place. NECK: Right IJ in place. LUNGS: Clear anteriorly. HEART: S1, S2, systolic murmur at the left sternal border. ABDOMEN: Obese, distended. Laparoscopic incision intact, MATTHEW drain in place. Bowel sounds hypoactive. EXTREMITIES: No edema, no cyanosis. DERMATOLOGIC: Warm, dry. No generalized rash. NEUROLOGIC: Intubated. PSYCHIATRIC: Unable to assess. GENITOURINARY: Soler in place. LINES: Right IJ in place, art line in place. Medications: Inpatient Meds: Current Medications Medications (Trade) Dose Ordered Sig/Katherine Start Time Stop Time Status Last Admin Dose Admin Acetaminophen (Tylenol) 650 mg PRN Q6HRS PRN 11/02/20 07:00 Albuterol Sulfate (Ventolin Hfa) 60 puff STK-MED ONCE 11/02/20 12:35 11/02/20 12:36 DC Bisacodyl (Dulcolax Supp) 10 mg PRN DAILY PRN 11/02/20 07:00 Bupivacaine HCl (Sensorcaine Mpf 0.5%) 30 ml STK-MED ONCE 11/02/20 11:28 11/02/20 11:28 DC 11/02/20 12:25 30 ML Cellulose (Surgicel Hemostat 4x8) 1 each STK-MED ONCE 11/02/20 12:56 11/02/20 12:56 DC Dexamethasone Sodium Phosphate (Decadron) 20 mg STK-MED ONCE 11/02/20 10:50 11/02/20 10:51 DC Enoxaparin Sodium (Lovenox 40mg Syringe) 40 mg Q24H 11/02/20 08:00 11/02/20 07:41 DC Epinephrine HCl (Adrenalin) 1 mg STK-MED ONCE 11/02/20 14:11 11/02/20 14:11 DC Famotidine (Pepcid Vial) 20 mg QHS 11/02/20 21:00 11/02/20 20:59 20 MG Fentanyl Citrate 30 ml @ 2.5 mls/hr CONT PRN 11/02/20 14:00 11/03/20 00:45 2.5 MLS/HR Fentanyl Citrate (Fentanyl 2ml Vial) 100 mcg STK-MED ONCE 11/02/20 11:40 11/02/20 11:40 DC Furosemide (Lasix) 40 mg 1X ONCE 11/02/20 17:15 11/02/20 17:16 DC 11/02/20 17:47 40 MG Heparin Sodium (Porcine) (Heparin Sodium) 5,000 unit Q8HRS 11/02/20 14:00 11/02/20 14:00 Cancel Hydromorphone HCl (Dilaudid) 0.5 mg PRN Q10MIN PRN 11/02/20 08:15 11/02/20 22:41 DC Influenza Virus Vaccine Quadrival (Fluzone Quad Syringe) 0.5 ml ONCE ONCE 11/02/20 09:00 11/02/20 09:03 DC Iohexol (Omnipaque 300 Mg/ml) 50 ml STK-MED ONCE 11/02/20 11:28 11/02/20 11:28 DC 11/02/20 12:25 50 ML Lidocaine HCl (Lidocaine Pf 2% Vial) 5 ml STK-MED ONCE 11/02/20 10:50 11/02/20 10:51 DC Lidocaine HCl (Xylocaine-Mpf 1% 2ml Vial) 2 ml 1X PRN PRN 11/02/20 08:15 11/03/20 08:14 DC Linezolid/Dextrose 300 ml @ 300 mls/hr Q12HR 11/02/20 17:00 11/02/20 16:26 300 MLS/HR Magnesium Hydroxide (Milk Of Magnesia) 2,400 mg PRN Q12HR PRN 11/02/20 07:00 11/03/20 01:25 DC Micafungin Sodium 100 mg/Dextrose 100 ml @ 100 mls/hr Q24H 11/02/20 18:00 11/02/20 17:40 100 MLS/HR Midazolam HCl 100 ml @ 1 mls/hr CONT PRN 11/02/20 14:00 11/03/20 03:15 7 MLS/HR Morphine Sulfate (Morphine Sulfate) 1 mg PRN Q10MIN PRN 11/02/20 08:15 11/02/20 22:40 DC Norepinephrine Bitartrate 32 mg/ Dextrose 282 ml @ 5.536 mls/ hr CONT PRN 11/03/20 08:00 Norepinephrine Bitartrate 8 mg/ Dextrose 258 ml @ 20.259 mls/ hr CONT PRN 11/03/20 05:30 11/03/20 07:58 DC 11/03/20 07:02 40.519 MLS/HR Ondansetron HCl (Zofran) 4 mg STK-MED ONCE 11/02/20 10:51 11/02/20 10:51 DC Perflutren Protein Type A Microsphe (Optison) 0.66 mg STK-MED ONCE 11/03/20 07:25 11/03/20 07:25 DC Phenylephrine HCl (Orestes-Synephrine Inj) 10 mg STK-MED ONCE 11/02/20 13:37 11/02/20 13:37 DC Piperacillin Sod/ Tazobactam Sod 2.25 gm/Sodium Chloride 50 ml @ 100 mls/hr Q6HRS 11/02/20 10:00 11/03/20 05:44 100 MLS/HR Piperacillin Sod/ Tazobactam Sod 3.375 gm/Sodium Chloride 50 ml @ 100 mls/hr Q6HRS 11/02/20 12:00 UNV Prochlorperazine Edisylate (Compazine) 5 mg PACU PRN PRN 11/02/20 08:15 11/03/20 08:14 DC Propofol (Diprivan) 200 mg STK-MED ONCE 11/02/20 10:50 11/02/20 10:51 DC Ringer's Solution 1,000 ml @ 30 mls/hr Q24H 11/02/20 08:15 11/02/20 20:14 DC Rocuronium [place] (Zemuron) 50 mg STK-MED ONCE 11/02/20 10:51 11/02/20 10:52 DC Sodium Bicarbonate 150 meq/Dextrose 1,150 ml @ 150 mls/hr Q7H40M PRN 11/02/20 19:00 11/03/20 02:27 150 MLS/HR Sodium Bicarbonate (Sodium Bicarb Adult 8.4% Syr) 100 meq 1X ONCE 11/02/20 14:45 11/02/20 14:46 DC 11/02/20 14:44 100 MEQ Sodium Chloride 1,000 ml @ 1,000 mls/hr 1X ONCE 11/02/20 17:30 11/02/20 18:29 DC 11/02/20 17:30 1,000 MLS/HR Succinylcholine Chloride (Anectine) 200 mg STK-MED ONCE 11/02/20 11:35 11/02/20 11:35 DC Vasopressin 20 unit/Dextrose 101 ml @ 12 mls/hr CONT PRN 11/02/20 15:15 11/02/20 23:15 12 MLS/HR Zolpidem Tartrate (Ambien) 5 mg PRN QHS PRN 11/02/20 07:00 Labs: Lab Laboratory Tests Test 11/02/20 10:05 11/02/20 12:35 11/02/20 12:57 11/02/20 13:00 White Blood Count 15.0 x10^3/uL (4.0-11.0) 14.3 x10^3/uL (4.0-11.0) Red Blood Count 4.01 x10^6/uL (3.50-5.40) 3.24 x10^6/uL (3.50-5.40) Hemoglobin 11.4 g/dL (12.0-15.5) 9.2 g/dL (12.0-15.5) Hematocrit 35.7 % (36.0-47.0) 28.3 % (36.0-47.0) Mean Corpuscular Volume 89 fL (79-100) 87 fL (79-100) Mean Corpuscular Hemoglobin 29 pg (25-35) 28 pg (25-35) Mean Corpuscular Hemoglobin Concent 32 g/dL (31-37) 33 g/dL (31-37) Red Cell Distribution Width 14.2 % (11.5-14.5) 14.0 % (11.5-14.5) Platelet Count 191 x10^3/uL (140-400) 168 x10^3/uL (140-400) Neutrophils (%) (Auto) 75 % (31-73) Lymphocytes (%) (Auto) 16 % (24-48) Monocytes (%) (Auto) 9 % (0-9) Eosinophils (%) (Auto) 1 % (0-3) Basophils (%) (Auto) 0 % (0-3) Neutrophils # (Auto) 11.2 x10^3/uL (1.8-7.7) Lymphocytes # (Auto) 2.3 x10^3/uL (1.0-4.8) Monocytes # (Auto) 1.4 x10^3/uL (0.0-1.1) Eosinophils # (Auto) 0.1 x10^3/uL (0.0-0.7) Basophils # (Auto) 0.0 x10^3/uL (0.0-0.2) Sodium Level 129 mmol/L (136-145) 134 mmol/L (136-145) Potassium Level 4.7 mmol/L (3.5-5.1) 5.1 mmol/L (3.5-5.1) Chloride Level 95 mmol/L (98-107) 97 mmol/L (98-107) Carbon Dioxide Level 12 mmol/L (21-32) 16 mmol/L (21-32) Anion Gap 22 (6-14) 21 (6-14) Blood Urea Nitrogen 63 mg/dL (7-20) 64 mg/dL (7-20) Creatinine 2.2 mg/dL (0.6-1.0) 2.5 mg/dL (0.6-1.0) Estimated GFR (Cockcroft-Gault) 27.2 23.5 BUN/Creatinine Ratio 29 (6-20) 26 (6-20) Glucose Level 78 mg/dL (70-99) 86 mg/dL (70-99) 78 mg/dL (70-99) Calcium Level 8.4 mg/dL (8.5-10.1) 7.1 mg/dL (8.5-10.1) Total Bilirubin 1.9 mg/dL (0.2-1.0) 1.7 mg/dL (0.2-1.0) Aspartate Amino Transf (AST/SGOT) 309 U/L (15-37) 388 U/L (15-37) Alanine Aminotransferase (ALT/SGPT) 299 U/L (14-59) 338 U/L (14-59) Alkaline Phosphatase 231 U/L (46-116) 184 U/L (46-116) Total Protein 7.1 g/dL (6.4-8.2) 5.0 g/dL (6.4-8.2) Albumin 2.5 g/dL (3.4-5.0) 2.0 g/dL (3.4-5.0) Albumin/Globulin Ratio 0.5 (1.0-1.7) 0.7 (1.0-1.7) Bedside Hemoglobin (Calculated) 9.5 g/dL (12-15) Bedside Hematocrit 28 % (36-40) Bedside Arterial pH 7.17 (7.35-7.45) Arterial Blood pH (Temp corrected) 7.17 Bedside Arterial pCO2 32 mmHg (35-45) Arterial Blood pCO2 (Temp correct) 32 mmHg Bedside Arterial pO2 203 mmHg (75-100) Arterial Blood pO2 (Temp corrected) 203 mmHg Bedside Arterial HCO3 12 mmol/L (21-28) Bedside Arterial Total CO2 13 mmol/L (21-32) Arterial Bld O2 Saturation (Measur) 99 % (95-99) Bedside Arterial Blood Base Excess -17 mmol/L (0-3) Bedside FiO2 21.0 Bedside Sodium 129 mmol/L (135-145) Bedside Potassium 4.4 mmol/L (3.5-5.0) Bedside Ionized Calcium (Ashley) 1.01 mmol/L (1.13-1.32) Prothrombin Time 19.6 SEC (11.7-14.0) Prothromb Time International Ratio 1.7 (0.8-1.1) Activated Partial Thromboplast Time 29 SEC (24-38) Iron Level 61 ug/dL (50-170) Total Iron Binding Capacity 224 ug/dL (250-450) Iron Saturation 27 % (15-34) Hepatitis A IgM Antibody Nonreactive (Nonreactive) Hepatitis B Surface Antigen Nonreactive (Nonreactive) Hepatitis B Core IgM Antibody Nonreactive (Nonreactive) Hepatitis C IgG Antibody Nonreactive (Nonreactive) Test 11/02/20 13:15 11/02/20 14:22 11/02/20 16:30 11/02/20 17:41 Bedside Arterial pH 7.16 (7.35-7.45) Bedside Arterial pCO2 45 mmHg (35-45) Bedside Arterial pO2 184 mmHg (75-100) Arterial Blood pO2 (Temp corrected) mmHg 144 mmHg 189 mmHg Arterial Blood HCO3 16 mmol/L (21-28) 13 mmol/L (21-28) 11 mmol/L (21-28) Bedside Arterial Blood O2 Sat 99 % (95-99) Bedside FiO2 100 O2 Saturation 98 % (92-99) 99 % (92-99) Arterial Blood pH 7.18 (7.35-7.45) 7.21 (7.35-7.45) Arterial Blood pH (Temp corrected) 7.19 7.22 Arterial Blood pCO2 at Patient Temp 36 mmHg (35-46) 28 mmHg (35-46) Arterial Blood pCO2 (Temp correct) 35 mmHg 27 mmHg Arterial Blood pO2 at Patient Temp 149 mmHg (65-108) 193 mmHg (65-108) Arterial Blood Base Excess -14 mmol/L (-3-3) -16 mmol/L (-3-3) FiO2 100 100 Lactic Acid Level 11.8 mmol/L (0.4-2.0) Test 11/02/20 18:49 11/02/20 21:15 Urine Collection Type Unknown Urine Color Radha Urine Clarity Cloudy Urine pH 5.0 (<5.0-8.0) Urine Specific [place] 1.020 (1.000-1.030) Urine Protein 30 mg/dL (NEG-TRACE) Urine Glucose (UA) Negative mg/dL (NEG) Urine Ketones (Stick) Negative mg/dL (NEG) Urine Blood Small (NEG) Urine Nitrite Negative (NEG) Urine Bilirubin Negative (NEG) Urine Urobilinogen Dipstick 1.0 mg/dL (0.2 mg/dL) Urine Leukocyte Esterase Negative (NEG) Urine RBC 6-10 /HPF (0-2) Urine WBC 1-4 /HPF (0-4) Urine Transitional Epithelial Cells Few /LPF Urine Amorphous Sediment Present /HPF Urine Bacteria 0 /HPF (0-FEW) Urine Hyaline Casts Moderate /HPF Urine Waxy Casts Occasional /HPF Urine Mucus Slight /LPF Urine Opiates Screen Pos (NEG) Urine Methadone Screen Neg (NEG) Urine Barbiturates Neg (NEG) Urine Phencyclidine Screen Neg (NEG) Urine Amphetamine/Methamphetamine Neg (NEG) Urine Benzodiazepines Screen Pos (NEG) Urine Cocaine Screen Neg (NEG) Urine Cannabinoids Screen Pos (NEG) Urine Ethyl Alcohol Neg (NEG) Lactic Acid Level 13.3 mmol/L (0.4-2.0) Objective: Assessment: 1. Severe Sepsis source unclear at this time 2. Abdominal pain with nausea and vomiting present on admission. Suspected cholecystitis, Nov 02 2020 status post laparoscopic cholecystectomy with gallbladder appeared normal without any changes of acute cholecystitis. 3. Leukocytosis. 4. Lactic acidosis postoperatively 5. Acute kidney injury.Severe metabolic acidosis. Hyponatremia 6. Abnormal liver function tests. POA 7. Acute respiratory failure, postoperative. Chest x-ray on admission revealed interstitial changes 8. Anemia. 9. Protein-calorie malnutrition. Plan: Plan of Care Source of sepsis unclear at this time Continue Zosyn, Zyvox, micafungin add empiric levofloxacin,may need renal dosing,pharmacy to assist urine legionella ag Labs from am are pending at this time Follow cultures Continue supportive care Follow-up echo critically ill. Prognosis is guarded. Discussed with WALTER. SMITHA STRICKLAND MD Nov 03, 2020 08:30
[2020-11-03 08:47] LABS: BASE EXCESS ABG -2 mmol/L (-3-3); HCO3 ABG 23 mmol/L (21-28); PCO2 ABG 36 mmHg (35-46); PO2 ABG 98 mmHg (65-108); SAT O2 ABG 96 % (92-99)
[2020-11-03] MEDS: VASOPRESSIN 20 UNIT in IV DEXTROSE 5% 100ML 100 ML IV PRN ×2 (08:51→18:19)
--- NOTE | 2020-11-03 09:06 | PDOC2 ---
CONSULT Date of Consult Date of Consult DATE: 11/03/20 TIME: 09:06 Reason for Consult Reason for Consult: SHINE Identification/Chief Complaint Chief Complaint Unable to Obtain 2/2 Intubated , MV Source Source: Chart review History of Present Illness Reason for Visit: Pt is a 65 yo AA female with no significant past medical history presented to the ER with complaints of abdominal pain, nausea and vomiting. She underwent CT of the abdomen and pelvis, which showed cholelithiasis with mild right perinephric stranding and ultrasound right upper quadrant showed cholelithiasis with findings suspicious for acute cholecystitis. She underwent laparoscopic cholecystectomy with intraoperative cholangiogram, findings of gallbladder appeared normal without changes of acute cholecystitis. No other abdominal process identified and no visible abdominal source of sepsis. T She was intubated postoperatively , requiring pressure support . Currently she is on pressure support Levophed and Vasopressin . Started on IV Bicarb gtt last evening Past Medical History Past Medical History DJD Rheumatologic: Other (Arthritis) Past Surgical History Past Surgical History: No pertinent history Family History Family History Unable to obtain 2./2 Intbated/MV Family History: Other (no pertinent hx to admission ) Social History Lives: Alone Current Problem List Problem List Problems Medical Problems: (1) Acute renal failure Status: Acute (2) Cholelithiasis Status: Acute (3) Dehydration Status: Acute (4) Intractable nausea and vomiting Status: Acute (5) Person under investigation for COVID-19 Status: Acute (6) Renal failure Status: Acute (7) Transaminitis Status: Acute Current Medications Current Medications Current Medications Sodium Chloride 1,000 ml @ 1,000 mls/hr 1X ONCE IV Last administered on 11/01/20at 21:20; Start 11/01/20 at 21:30; Stop 11/01/20 at 22:29; Status DC Ondansetron HCl (Zofran) 4 mg 1X ONCE IVP Last administered on 11/01/20at 21:18; Start 11/01/20 at 21:30; Stop 11/01/20 at 21:31; Status DC Famotidine (Pepcid Vial) 20 mg 1X ONCE IVP Last administered on 11/01/20at 21:19; Start 11/01/20 at 21:30; Stop 11/01/20 at 21:31; Status DC Fentanyl Citrate (Fentanyl 2ml Vial) 50 mcg PRN Q15MIN PRN IV PAIN GREATER THAN 3/10 Last administered on 11/01/20at 21:19; Start 11/01/20 at 21:00; Stop 11/02/20 at 20:59; Status DC Ondansetron HCl (Zofran) 4 mg PRN Q8HRS PRN IV NAUSEA/VOMITING 1ST CHOICE; Start 11/01/20 at 23:00; Stop 11/02/20 at 22:59; Status DC Fentanyl Citrate (Fentanyl 2ml Vial) 50 mcg PRN Q1HR PRN IV SEVERE PAIN 7-10 Last administered on 11/02/20at 03:47; Start 11/01/20 at 23:00; Stop 11/02/20 at 22:40; Status DC Sodium Chloride 1,000 ml @ 100 mls/hr 1X ONCE IV Last administered on 11/02/20at 01:28; Start 11/01/20 at 23:00; Stop 11/02/20 at 09:03; Status DC Influenza Virus Vaccine Quadrival (Fluzone Quad Syringe) 0.5 ml ONCE ONCE VAX IM ; Start 11/02/20 at 09:00; Stop 11/02/20 at 09:03; Status DC Morphine Sulfate (Morphine Sulfate) 4 mg PRN Q2HR PRN IV SEVERE PAIN 7-10; Start 11/02/20 at 06:45; Stop 11/02/20 at 22:40; Status DC Ondansetron HCl (Zofran) 4 mg PRN Q6HRS PRN IVP NAUSEA/VOMITING 1ST CHOICE; Start 11/02/20 at 07:00 Prochlorperazine Edisylate (Compazine) 10 mg PRN Q6HRS PRN IVP NAUSEA/VOMITING 2ND CHOICE; Start 11/02/20 at 07:00 Zolpidem Tartrate (Ambien) 5 mg PRN QHS PRN PO INSOMNIA, MAY REPEAT IN 1HR; Start 11/02/20 at 07:00 Morphine Sulfate (Morphine Sulfate) 2 mg PRN Q1HR PRN IV MODERATE PAIN 4-6 Last administered on 11/02/20at 08:35; Start 11/02/20 at 07:00; Stop 11/02/20 at 22:40; Status DC Hydromorphone HCl (Dilaudid) 0.4 mg PRN Q1HR PRN IV SEVERE PAIN 7-10; Start 11/02/20 at 07:00; Stop 11/02/20 at 22:41; Status DC Acetaminophen (Tylenol) 650 mg PRN Q6HRS PRN PO Headaches, Temp > 101.5F; Start 11/02/20 at 07:00 Magnesium Hydroxide (Milk Of Magnesia) 2,400 mg PRN Q12HR PRN PO CONSTIPATION 1ST CHOICE; Start 11/02/20 at 07:00; Stop 11/03/20 at 01:25; Status DC Bisacodyl (Dulcolax Supp) 10 mg PRN DAILY PRN DC CONSTIPATION 2ND CHOICE; Start 11/02/20 at 07:00 Heparin Sodium (Porcine) (Heparin Sodium) 5,000 unit Q8HRS SQ ; Start 11/02/20 at 14:00; Stop 11/02/20 at 14:00; Status Cancel Enoxaparin Sodium (Lovenox 40mg Syringe) 40 mg Q24H SQ ; Start 11/02/20 at 08:00; Stop 11/02/20 at 07:41; Status DC Ondansetron HCl (Zofran) 4 mg PRN Q6HRS PRN IVP NAUSEA/VOMITING; Start 11/02/20 at 08:15; Stop 11/03/20 at 08:14; Status DC Fentanyl Citrate (Fentanyl 2ml Vial) 25 mcg PRN Q5MIN PRN IVP MILD PAIN 1-3; Start 11/02/20 at 08:15; Stop 11/02/20 at 22:40; Status DC Fentanyl Citrate (Fentanyl 2ml Vial) 50 mcg PRN Q5MIN PRN IVP MODERATE TO SEVERE PAIN Last administered on 11/02/20at 11:20; Start 11/02/20 at 08:15; Stop 11/02/20 at 22:40; Status DC Morphine Sulfate (Morphine Sulfate) 1 mg PRN Q10MIN PRN IVP SEVERE PAIN 7-10; Start 11/02/20 at 08:15; Stop 11/02/20 at 22:40; Status DC Ringer's Solution 1,000 ml @ 30 mls/hr Q24H IV ; Start 11/02/20 at 08:15; Stop 11/02/20 at 20:14; Status DC Lidocaine HCl (Xylocaine-Mpf 1% 2ml Vial) 2 ml 1X PRN PRN ID IV START; Start 11/02/20 at 08:15; Stop 11/03/20 at 08:14; Status DC Hydromorphone HCl (Dilaudid) 0.5 mg PRN Q10MIN PRN IVP SEV PAIN, Second choice; Start 11/02/20 at 08:15; Stop 11/02/20 at 22:41; Status DC Prochlorperazine Edisylate (Compazine) 5 mg PACU PRN PRN IVP NAUSEA, MRX1; Start 11/02/20 at 08:15; Stop 11/03/20 at 08:14; Status DC Piperacillin Sod/ Tazobactam Sod 3.375 gm/Sodium Chloride 50 ml @ 100 mls/hr Q6HRS IV ; Start 11/02/20 at 12:00; Status UNV Piperacillin Sod/ Tazobactam Sod 2.25 gm/Sodium Chloride 50 ml @ 100 mls/hr Q6HRS IV Last administered on 11/03/20at 05:44; Start 11/02/20 at 10:00 Propofol (Diprivan) 200 mg STK-MED ONCE IV ; Start 11/02/20 at 10:50; Stop 11/02/20 at 10:51; Status DC Lidocaine HCl (Lidocaine Pf 2% Vial) 5 ml STK-MED ONCE .ROUTE ; Start 11/02/20 at 10:50; Stop 11/02/20 at 10:51; Status DC Dexamethasone Sodium Phosphate (Decadron) 20 mg STK-MED ONCE .ROUTE ; Start 11/02/20 at 10:50; Stop 11/02/20 at 10:51; Status DC Ondansetron HCl (Zofran) 4 mg STK-MED ONCE .ROUTE ; Start 11/02/20 at 10:51; Stop 11/02/20 at 10:51; Status DC Rocuronium [place] (Zemuron) 50 mg STK-MED ONCE .ROUTE ; Start 11/02/20 at 10:51; Stop 11/02/20 at 10:52; Status DC Fentanyl Citrate (Fentanyl 2ml Vial) 100 mcg STK-MED ONCE .ROUTE ; Start 11/02/20 at 11:16; Stop 11/02/20 at 11:16; Status DC Iohexol (Omnipaque 300 Mg/ml) 50 ml STK-MED ONCE .ROUTE Last administered on 11/02/20at 12:25; Start 11/02/20 at 11:28; Stop 11/02/20 at 11:28; Status DC Bupivacaine HCl (Sensorcaine Mpf 0.5%) 30 ml STK-MED ONCE .ROUTE Last ad ministered on 11/02/20at 12:25; Start 11/02/20 at 11:28; Stop 11/02/20 at 11:28; Status DC Succinylcholine Chloride (Anectine) 200 mg STK-MED ONCE .ROUTE ; Start 11/02/20 at 11:35; Stop 11/02/20 at 11:35; Status DC Fentanyl Citrate (Fentanyl 2ml Vial) 100 mcg STK-MED ONCE .ROUTE ; Start 11/02/20 at 11:40; Stop 11/02/20 at 11:40; Status DC Norepinephrine Bitartrate 8 mg/ Dextrose 258 ml @ 0 mls/hr CONT PRN IV PER PROTOCOL Last administered on 11/02/20at 15:03; Start 11/02/20 at 12:30; Stop 11/02/20 at 15:03; Status DC Albuterol Sulfate (Ventolin Hfa) 60 puff STK-MED ONCE INH ; Start 11/02/20 at 12:35; Stop 11/02/20 at 12:36; Status DC Cellulose (Surgicel Hemostat 4x8) 1 each STK-MED ONCE .ROUTE Last administered on 11/02/20at 12:46; Start 11/02/20 at 12:38; Stop 11/02/20 at 12:39; Status DC Cellulose (Surgicel Hemostat 4x8) 1 each STK-MED ONCE TP Last administered on 11/02/20at 12:47; Start 11/02/20 at 12:47; Stop 11/02/20 at 12:49; Status DC Cellulose (Surgicel Hemostat 4x8) 1 each STK-MED ONCE .ROUTE Last administered on 11/02/20at 13:01; Start 11/02/20 at 12:56; Stop 11/02/20 at 12:56; Status DC Cellulose (Surgicel Hemostat 4x8) 1 each STK-MED ONCE .ROUTE ; Start 11/02/20 at 12:56; Stop 11/02/20 at 12:56; Status DC Sodium Bicarbonate (Sodium Bicarb Adult 8.4% Syr) 50 meq STK-MED ONCE .ROUTE ; Start 11/02/20 at 13:21; Stop 11/02/20 at 13:21; Status DC Phenylephrine HCl (Orestes-Synephrine Inj) 10 mg STK-MED ONCE .ROUTE ; Start 11/02/20 at 13:37; Stop 11/02/20 at 13:37; Status DC Fentanyl Citrate 30 ml @ 2.5 mls/hr CONT PRN IV SEE PROTOCOL Last administered on 11/03/20at 00:45; Start 11/02/20 at 14:00 Midazolam HCl 100 ml @ 1 mls/hr CONT PRN IV SEE PROTOCOL Last administered on 11/03/20at 03:15; Start 11/02/20 at 14:00 Epinephrine HCl (Adrenalin) 1 mg STK-MED ONCE .ROUTE ; Start 11/02/20 at 14:11; Stop 11/02/20 at 14:11; Status DC Sodium Bicarbonate (Sodium Bicarb Adult 8.4% Syr) 50 meq STK-MED ONCE .ROUTE ; Start 11/02/20 at 14:27; Stop 11/02/20 at 14:28; Status DC Sodium Bicarbonate (Sodium Bicarb Adult 8.4% Syr) 100 meq 1X ONCE IV Last administered on 11/02/20at 14:44; Start 11/02/20 at 14:45; Stop 11/02/20 at 14:46; Status DC Sodium Chloride 1,000 ml @ 1,000 mls/hr 1X ONCE IV Last administered on 11/02/20at 15:00; Start 11/02/20 at 15:00; Stop 11/02/20 at 15:59; Status DC Vasopressin 20 unit/Dextrose 101 ml @ 12 mls/hr CONT PRN IV SEE I/O RECORD Last administered on 11/03/20at 08:51; Start 11/02/20 at 15:15 Linezolid/Dextrose 300 ml @ 300 mls/hr Q12HR IV Last administered on 11/02/20at 16:26; Start 11/02/20 at 17:00 Famotidine (Pepcid Vial) 20 mg QHS IVP Last administered on 11/02/20at 20:59; Start 11/02/20 at 21:00 Furosemide (Lasix) 40 mg 1X ONCE IVP Last administered on 11/02/20at 17:47; Start 11/02/20 at 17:15; Stop 11/02/20 at 17:16; Status DC Sodium Chloride 1,000 ml @ 1,000 mls/hr 1X ONCE IV Last administered on 11/02/20at 17:30; Start 11/02/20 at 17:30; Stop 11/02/20 at 18:29; Status DC Micafungin Sodium 100 mg/Dextrose 100 ml @ 100 mls/hr Q24H IV Last administered on 11/02/20at 17:40; Start 11/02/20 at 18:00 Sodium Bicarbonate 150 meq/Dextrose 1,150 ml @ 150 mls/hr Q7H40M PRN IV IV CONT. Last administered on 11/03/20at 02:27; Start 11/02/20 at 19:00 Norepinephrine Bitartrate 8 mg/ Dextrose 258 ml @ 20.259 mls/ hr CONT PRN IV PER PROTOCOL Last administered on 11/03/20at 07:02; Start 11/03/20 at 05:30; Stop 11/03/20 at 07:58; Status DC Perflutren Protein Type A Microsphe (Optison) 0.66 mg STK-MED ONCE IV ; Start 11/03/20 at 07:25; Stop 11/03/20 at 07:25; Status DC Norepinephrine Bitartrate 32 mg/ Dextrose 282 ml @ 5.536 mls/ hr CONT PRN IV PER PROTOCOL; Start 11/03/20 at 08:00 Levofloxacin/ Dextrose 100 ml @ 100 mls/hr Q24H IV ; Start 11/03/20 at 10:00 Active Scripts Active Reported Ibuprofen 800 Mg Tablet 800 Mg PO PRN Q6HRS PRN Allergies Allergies: Coded Allergies: No Known Drug Allergies (Unverified , 11/01/20) ROS Review of System Unable to Obtain 2/2 Intubated , MV Physical Exam Physical Exam GENERAL: Intubated, sedated. HEENT: ETT OG tube in place. NECK: Right IJ in place. LUNGS: Clear anteriorly. HEART: S1, S2, systolic murmur at the left sternal border. ABDOMEN: Obese, distended. Laparoscopic incision intact, MATTHEW drain in place. EXTREMITIES: No edema, no cyanosis. DERM: Warm, dry. No generalized rash. NEUROLOGIC: Intubated. PSYCHIATRIC: Unable to assess. : Soler in place. 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 No e/o cholecystitis Elevated LFT's Small bilateral effusions. Labs Labs Laboratory Tests Test 11/01/20 21:12 11/01/20 22:53 11/02/20 10:05 11/02/20 12:35 White Blood Count 12.4 x10^3/uL (4.0-11.0) 15.0 x10^3/uL (4.0-11.0) Red Blood Count 3.65 x10^6/uL (3.50-5.40) 4.01 x10^6/uL (3.50-5.40) Hemoglobin 10.3 g/dL (12.0-15.5) 11.4 g/dL (12.0-15.5) Hematocrit 30.8 % (36.0-47.0) 35.7 % (36.0-47.0) Mean Corpuscular Volume 85 fL (79-100) 89 fL (79-100) Mean Corpuscular Hemoglobin 28 pg (25-35) 29 pg (25-35) Mean Corpuscular Hemoglobin Concent 34 g/dL (31-37) 32 g/dL (31-37) Red Cell Distribution Width 13.7 % (11.5-14.5) 14.2 % (11.5-14.5) Platelet Count 246 x10^3/uL (140-400) 191 x10^3/uL (140-400) Neutrophils (%) (Auto) 70 % (31-73) 75 % (31-73) Lymphocytes (%) (Auto) 21 % (24-48) 16 % (24-48) Monocytes (%) (Auto) 8 % (0-9) 9 % (0-9) Eosinophils (%) (Auto) 1 % (0-3) 1 % (0-3) Basophils (%) (Auto) 0 % (0-3) 0 % (0-3) Neutrophils # (Auto) 8.7 x10^3/uL (1.8-7.7) 11.2 x10^3/uL (1.8-7.7) Lymphocytes # (Auto) 2.6 x10^3/uL (1.0-4.8) 2.3 x10^3/uL (1.0-4.8) Monocytes # (Auto) 1.0 x10^3/uL (0.0-1.1) 1.4 x10^3/uL (0.0-1.1) Eosinophils # (Auto) 0.1 x10^3/uL (0.0-0.7) 0.1 x10^3/uL (0.0-0.7) Basophils # (Auto) 0.0 x10^3/uL (0.0-0.2) 0.0 x10^3/uL (0.0-0.2) Sodium Level 127 mmol/L (136-145) 129 mmol/L (136-145) Potassium Level 4.2 mmol/L (3.5-5.1) 4.7 mmol/L (3.5-5.1) Chloride Level 94 mmol/L (98-107) 95 mmol/L (98-107) Carbon Dioxide Level 18 mmol/L (21-32) 12 mmol/L (21-32) Anion Gap 15 (6-14) 22 (6-14) Blood Urea Nitrogen 54 mg/dL (7-20) 63 mg/dL (7-20) Creatinine 1.8 mg/dL (0.6-1.0) 2.2 mg/dL (0.6-1.0) Estimated GFR (Cockcroft-Gault) 34.3 27.2 BUN/Creatinine Ratio 30 (6-20) 29 (6-20) Glucose Level 151 mg/dL (70-99) 78 mg/dL (70-99) 86 mg/dL (70-99) Calcium Level 8.4 mg/dL (8.5-10.1) 8.4 mg/dL (8.5-10.1) Magnesium Level 3.1 mg/dL (1.8-2.4) Total Bilirubin 1.0 mg/dL (0.2-1.0) 1.9 mg/dL (0.2-1.0) Aspartate Amino Transf (AST/SGOT) 157 U/L (15-37) 309 U/L (15-37) Alanine Aminotransferase (ALT/SGPT) 177 U/L (14-59) 299 U/L (14-59) Alkaline Phosphatase 231 U/L (46-116) 231 U/L (46-116) Total Protein 6.7 g/dL (6.4-8.2) 7.1 g/dL (6.4-8.2) Albumin 2.5 g/dL (3.4-5.0) 2.5 g/dL (3.4-5.0) Albumin/Globulin Ratio 0.6 (1.0-1.7) 0.5 (1.0-1.7) Lipase 135 U/L (73-393) Ethyl Alcohol Level < 10 mg/dL (0-10) Coronavirus (PCR) Not detected (Not Detected) SARS-CoV-2 Antigen (Rapid) Negative (NEGATIVE) Bedside Hemoglobin (Calculated) 9.5 g/dL (12-15) Bedside Hematocrit 28 % (36-40) Bedside Arterial pH 7.17 (7.35-7.45) Arterial Blood pH (Temp corrected) 7.17 Bedside Arterial pCO2 32 mmHg (35-45) Arterial Blood pCO2 (Temp correct) 32 mmHg Bedside Arterial pO2 203 mmHg (75-100) Arterial Blood pO2 (Temp corrected) 203 mmHg Bedside Arterial HCO3 12 mmol/L (21-28) Bedside Arterial Total CO2 13 mmol/L (21-32) Arterial Bld O2 Saturation (Measur) 99 % (95-99) Bedside Arterial Blood Base Excess -17 mmol/L (0-3) Bedside FiO2 21.0 Bedside Sodium 129 mmol/L (135-145) Bedside Potassium 4.4 mmol/L (3.5-5.0) Bedside Ionized Calcium (Ashley) 1.01 mmol/L (1.13-1.32) Test 11/02/20 12:57 11/02/20 13:00 11/02/20 13:15 11/02/20 14:22 White Blood Count 14.3 x10^3/uL (4.0-11.0) Red Blood Count 3.24 x10^6/uL (3.50-5.40) Hemoglobin 9.2 g/dL (12.0-15.5) Hematocrit 28.3 % (36.0-47.0) Mean Corpuscular Volume 87 fL (79-100) Mean Corpuscular Hemoglobin 28 pg (25-35) Mean Corpuscular Hemoglobin Concent 33 g/dL (31-37) Red Cell Distribution Width 14.0 % (11.5-14.5) Platelet Count 168 x10^3/uL (140-400) Prothrombin Time 19.6 SEC (11.7-14.0) Prothromb Time International Ratio 1.7 (0.8-1.1) Activated Partial Thromboplast Time 29 SEC (24-38) Sodium Level 134 mmol/L (136-145) Potassium Level 5.1 mmol/L (3.5-5.1) Chloride Level 97 mmol/L (98-107) Carbon Dioxide Level 16 mmol/L (21-32) Anion Gap 21 (6-14) Blood Urea Nitrogen 64 mg/dL (7-20) Creatinine 2.5 mg/dL (0.6-1.0) Estimated GFR (Cockcroft-Gault) 23.5 BUN/Creatinine Ratio 26 (6-20) Glucose Level 78 mg/dL (70-99) Calcium Level 7.1 mg/dL (8.5-10.1) Iron Level 61 ug/dL (50-170) Total Iron Binding Capacity 224 ug/dL (250-450) Iron Saturation 27 % (15-34) Total Bilirubin 1.7 mg/dL (0.2-1.0) Aspartate Amino Transf (AST/SGOT) 388 U/L (15-37) Alanine Aminotransferase (ALT/SGPT) 338 U/L (14-59) Alkaline Phosphatase 184 U/L (46-116) Total Protein 5.0 g/dL (6.4-8.2) Albumin 2.0 g/dL (3.4-5.0) Albumin/Globulin Ratio 0.7 (1.0-1.7) Hepatitis A IgM Antibody Nonreactive (Nonreactive) Hepatitis B Surface Antigen Nonreactive (Nonreactive) Hepatitis B Core IgM Antibody Nonreactive (Nonreactive) Hepatitis C IgG Antibody Nonreactive (Nonreactive) Bedside Arterial pH 7.16 (7.35-7.45) Bedside Arterial pCO2 45 mmHg (35-45) Bedside Arterial pO2 184 mmHg (75-100) Arterial Blood pO2 (Temp corrected) mmHg 144 mmHg Arterial Blood HCO3 16 mmol/L (21-28) 13 mmol/L (21-28) Bedside Arterial Blood O2 Sat 99 % (95-99) Bedside FiO2 100 O2 Saturation 98 % (92-99) Arterial Blood pH 7.18 (7.35-7.45) Arterial Blood pH (Temp corrected) 7.19 Arterial Blood pCO2 at Patient Temp 36 mmHg (35-46) Arterial Blood pCO2 (Temp correct) 35 mmHg Arterial Blood pO2 at Patient Temp 149 mmHg (65-108) Arterial Blood Base Excess -14 mmol/L (-3-3) FiO2 100 Test 11/02/20 16:30 11/02/20 17:41 11/02/20 18:49 11/02/20 21:15 Lactic Acid Level 11.8 mmol/L (0.4-2.0) 13.3 mmol/L (0.4-2.0) O2 Saturation 99 % (92-99) Arterial Blood pH 7.21 (7.35-7.45) Arterial Blood pH (Temp corrected) 7.22 Arterial Blood pCO2 at Patient Temp 28 mmHg (35-46) Arterial Blood pCO2 (Temp correct) 27 mmHg Arterial Blood pO2 at Patient Temp 193 mmHg (65-108) Arterial Blood pO2 (Temp corrected) 189 mmHg Arterial Blood HCO3 11 mmol/L (21-28) Arterial Blood Base Excess -16 mmol/L (-3-3) FiO2 100 Urine Collection Type Unknown Urine Color Radha Urine Clarity Cloudy Urine pH 5.0 (<5.0-8.0) Urine Specific [place] 1.020 (1.000-1.030) Urine Protein 30 mg/dL (NEG-TRACE) Urine Glucose (UA) Negative mg/dL (NEG) Urine Ketones (Stick) Negative mg/dL (NEG) Urine Blood Small (NEG) Urine Nitrite Negative (NEG) Urine Bilirubin Negative (NEG) Urine Urobilinogen Dipstick 1.0 mg/dL (0.2 mg/dL) Urine Leukocyte Esterase Negative (NEG) Urine RBC 6-10 /HPF (0-2) Urine WBC 1-4 /HPF (0-4) Urine Transitional Epithelial Cells Few /LPF Urine Amorphous Sediment Present /HPF Urine Bacteria 0 /HPF (0-FEW) Urine Hyaline Casts Moderate /HPF Urine Waxy Casts Occasional /HPF Urine Mucus Slight /LPF Urine Opiates Screen Pos (NEG) Urine Methadone Screen Neg (NEG) Urine Barbiturates Neg (NEG) Urine Phencyclidine Screen Neg (NEG) Urine Amphetamine/Methamphetamine Neg (NEG) Urine Benzodiazepines Screen Pos (NEG) Urine Cocaine Screen Neg (NEG) Urine Cannabinoids Screen Pos (NEG) Urine Ethyl Alcohol Neg (NEG) Test 11/03/20 08:50 O2 Saturation 96 % (92-99) Arterial Blood pH 7.42 (7.35-7.45) Arterial Blood pCO2 at Patient Temp 36 mmHg (35-46) Arterial Blood pO2 at Patient Temp 98 mmHg (65-108) Arterial Blood HCO3 23 mmol/L (21-28) Arterial Blood Base Excess -2 mmol/L (-3-3) FiO2 60% vent Laboratory Tests Test 11/02/20 10:05 11/02/20 12:35 11/02/20 12:57 11/02/20 13:00 White Blood Count 15.0 x10^3/uL (4.0-11.0) 14.3 x10^3/uL (4.0-11.0) Red Blood Count 4.01 x10^6/uL (3.50-5.40) 3.24 x10^6/uL (3.50-5.40) Hemoglobin 11.4 g/dL (12.0-15.5) 9.2 g/dL (12.0-15.5) Hematocrit 35.7 % (36.0-47.0) 28.3 % (36.0-47.0) Mean Corpuscular Volume 89 fL (79-100) 87 fL (79-100) Mean Corpuscular Hemoglobin 29 pg (25-35) 28 pg (25-35) Mean Corpuscular Hemoglobin Concent 32 g/dL (31-37) 33 g/dL (31-37) Red Cell Distribution Width 14.2 % (11.5-14.5) 14.0 % (11.5-14.5) Platelet Count 191 x10^3/uL (140-400) 168 x10^3/uL (140-400) Neutrophils (%) (Auto) 75 % (31-73) Lymphocytes (%) (Auto) 16 % (24-48) Monocytes (%) (Auto) 9 % (0-9) Eosinophils (%) (Auto) 1 % (0-3) Basophils (%) (Auto) 0 % (0-3) Neutrophils # (Auto) 11.2 x10^3/uL (1.8-7.7) Lymphocytes # (Auto) 2.3 x10^3/uL (1.0-4.8) Monocytes # (Auto) 1.4 x10^3/uL (0.0-1.1) Eosinophils # (Auto) 0.1 x10^3/uL (0.0-0.7) Basophils # (Auto) 0.0 x10^3/uL (0.0-0.2) Sodium Level 129 mmol/L (136-145) 134 mmol/L (136-145) Potassium Level 4.7 mmol/L (3.5-5.1) 5.1 mmol/L (3.5-5.1) Chloride Level 95 mmol/L (98-107) 97 mmol/L (98-107) Carbon Dioxide Level 12 mmol/L (21-32) 16 mmol/L (21-32) Anion Gap 22 (6-14) 21 (6-14) Blood Urea Nitrogen 63 mg/dL (7-20) 64 mg/dL (7-20) Creatinine 2.2 mg/dL (0.6-1.0) 2.5 mg/dL (0.6-1.0) Estimated GFR (Cockcroft-Gault) 27.2 23.5 BUN/Creatinine Ratio 29 (6-20) 26 (6-20) Glucose Level 78 mg/dL (70-99) 86 mg/dL (70-99) 78 mg/dL (70-99) Calcium Level 8.4 mg/dL (8.5-10.1) 7.1 mg/dL (8.5-10.1) Total Bilirubin 1.9 mg/dL (0.2-1.0) 1.7 mg/dL (0.2-1.0) Aspartate Amino Transf (AST/SGOT) 309 U/L (15-37) 388 U/L (15-37) Alanine Aminotransferase (ALT/SGPT) 299 U/L (14-59) 338 U/L (14-59) Alkaline Phosphatase 231 U/L (46-116) 184 U/L (46-116) Total Protein 7.1 g/dL (6.4-8.2) 5.0 g/dL (6.4-8.2) Albumin 2.5 g/dL (3.4-5.0) 2.0 g/dL (3.4-5.0) Albumin/Globulin Ratio 0.5 (1.0-1.7) 0.7 (1.0-1.7) Bedside Hemoglobin (Calculated) 9.5 g/dL (12-15) Bedside Hematocrit 28 % (36-40) Bedside Arterial pH 7.17 (7.35-7.45) Arterial Blood pH (Temp corrected) 7.17 Bedside Arterial pCO2 32 mmHg (35-45) Arterial Blood pCO2 (Temp correct) 32 mmHg Bedside Arterial pO2 203 mmHg (75-100) Arterial Blood pO2 (Temp corrected) 203 mmHg Bedside Arterial HCO3 12 mmol/L (21-28) Bedside Arterial Total CO2 13 mmol/L (21-32) Arterial Bld O2 Saturation (Measur) 99 % (95-99) Bedside Arterial Blood Base Excess -17 mmol/L (0-3) Bedside FiO2 21.0 Bedside Sodium 129 mmol/L (135-145) Bedside Potassium 4.4 mmol/L (3.5-5.0) Bedside Ionized Calcium (Ashley) 1.01 mmol/L (1.13-1.32) Prothrombin Time 19.6 SEC (11.7-14.0) Prothromb Time International Ratio 1.7 (0.8-1.1) Activated Partial Thromboplast Time 29 SEC (24-38) Iron Level 61 ug/dL (50-170) Total Iron Binding Capacity 224 ug/dL (250-450) Iron Saturation 27 % (15-34) Hepatitis A IgM Antibody Nonreactive (Nonreactive) Hepatitis B Surface Antigen Nonreactive (Nonreactive) Hepatitis B Core IgM Antibody Nonreactive (Nonreactive) Hepatitis C IgG Antibody Nonreactive (Nonreactive) Test 11/02/20 13:15 11/02/20 14:22 11/02/20 16:30 11/02/20 17:41 Bedside Arterial pH 7.16 (7.35-7.45) Bedside Arterial pCO2 45 mmHg (35-45) Bedside Arterial pO2 184 mmHg (75-100) Arterial Blood pO2 (Temp corrected) mmHg 144 mmHg 189 mmHg Arterial Blood HCO3 16 mmol/L (21-28) 13 mmol/L (21-28) 11 mmol/L (21-28) Bedside Arterial Blood O2 Sat 99 % (95-99) Bedside FiO2 100 O2 Saturation 98 % (92-99) 99 % (92-99) Arterial Blood pH 7.18 (7.35-7.45) 7.21 (7.35-7.45) Arterial Blood pH (Temp corrected) 7.19 7.22 Arterial Blood pCO2 at Patient Temp 36 mmHg (35-46) 28 mmHg (35-46) Arterial Blood pCO2 (Temp correct) 35 mmHg 27 mmHg Arterial Blood pO2 at Patient Temp 149 mmHg (65-108) 193 mmHg (65-108) Arterial Blood Base Excess -14 mmol/L (-3-3) -16 mmol/L (-3-3) FiO2 100 100 Lactic Acid Level 11.8 mmol/L (0.4-2.0) Test 11/02/20 18:49 11/02/20 21:15 11/03/20 08:50 Urine Collection Type Unknown Urine Color Radha Urine Clarity Cloudy Urine pH 5.0 (<5.0-8.0) Urine Specific [place] 1.020 (1.000-1.030) Urine Protein 30 mg/dL (NEG-TRACE) Urine Glucose (UA) Negative mg/dL (NEG) Urine Ketones (Stick) Negative mg/dL (NEG) Urine Blood Small (NEG) Urine Nitrite Negative (NEG) Urine Bilirubin Negative (NEG) Urine Urobilinogen Dipstick 1.0 mg/dL (0.2 mg/dL) Urine Leukocyte Esterase Negative (NEG) Urine RBC 6-10 /HPF (0-2) Urine WBC 1-4 /HPF (0-4) Urine Transitional Epithelial Cells Few /LPF Urine Amorphous Sediment Present /HPF Urine Bacteria 0 /HPF (0-FEW) Urine Hyaline Casts Moderate /HPF Urine Waxy Casts Occasional /HPF Urine Mucus Slight /LPF Urine Opiates Screen Pos (NEG) Urine Methadone Screen Neg (NEG) Urine Barbiturates Neg (NEG) Urine Phencyclidine Screen Neg (NEG) Urine Amphetamine/Methamphetamine Neg (NEG) Urine Benzodiazepines Screen Pos (NEG) Urine Cocaine Screen Neg (NEG) Urine Cannabinoids Screen Pos (NEG) Urine Ethyl Alcohol Neg (NEG) Lactic Acid Level 13.3 mmol/L (0.4-2.0) O2 Saturation 96 % (92-99) Arterial Blood pH 7.42 (7.35-7.45) Arterial Blood pCO2 at Patient Temp 36 mmHg (35-46) Arterial Blood pO2 at Patient Temp 98 mmHg (65-108) Arterial Blood HCO3 23 mmol/L (21-28) Arterial Blood Base Excess -2 mmol/L (-3-3) FiO2 60% vent Review All relevant outside records, renal labs, imaging studies, telemetry/EKG's were reviewed. Images Images Cxr Stable life support devices. Slightly improved patchy bilateral consolidations. Intraoperative cholangiogram. HISTORY: Cholecystectomy COMPARISON: None. FINDINGS: 3 fluoroscopic images were obtained during an intraoperative cholangiogram. The total fluoroscopy time was submitted with images. There is contrast opacification of the biliary tree and proximal small bowel. There is no evidence of a retained stone or stricture. IMPRESSION: Intraoperative cholangiogram, without evidence of a retained biliary stone or stricture. THANH ESTEVEZ MD Nov 03, 2020 09:06
--- NOTE | 2020-11-03 10:15 | PDOC ---
Date and Time Called for arterial line. Needed for BP monitoring and lab. Previous art line no longer functional. No palpable pulses upper extremeties. Doppler- No R or L radial present, L brachial with weak doppler signal. 20g 2" catheter placed using sterile technique. Good waveform and blood return. While suturing in place patient moved and line was pulled. redone same site, sterile technique, sutured in place, biopatch and sterile dressing. Good waveform and blood return. Current Medications Current Medications Sodium Chloride 1,000 ml @ 1,000 mls/hr 1X ONCE IV Last administered on 11/01/20at 21:20; Start 11/01/20 at 21:30; Stop 11/01/20 at 22:29; Status DC Ondansetron HCl (Zofran) 4 mg 1X ONCE IVP Last administered on 11/01/20at 21:18; Start 11/01/20 at 21:30; Stop 11/01/20 at 21:31; Status DC Famotidine (Pepcid Vial) 20 mg 1X ONCE IVP Last administered on 11/01/20at 21:19; Start 11/01/20 at 21:30; Stop 11/01/20 at 21:31; Status DC Fentanyl Citrate (Fentanyl 2ml Vial) 50 mcg PRN Q15MIN PRN IV PAIN GREATER THAN 3/10 Last administered on 11/01/20at 21:19; Start 11/01/20 at 21:00; Stop 11/02/20 at 20:59; Status DC Ondansetron HCl (Zofran) 4 mg PRN Q8HRS PRN IV NAUSEA/VOMITING 1ST CHOICE; Start 11/01/20 at 23:00; Stop 11/02/20 at 22:59; Status DC Fentanyl Citrate (Fentanyl 2ml Vial) 50 mcg PRN Q1HR PRN IV SEVERE PAIN 7-10 Last administered on 11/02/20at 03:47; Start 11/01/20 at 23:00; Stop 11/02/20 at 22:40; Status DC Sodium Chloride 1,000 ml @ 100 mls/hr 1X ONCE IV Last administered on 11/02/20at 01:28; Start 11/01/20 at 23:00; Stop 11/02/20 at 09:03; Status DC Influenza Virus Vaccine Quadrival (Fluzone Quad Syringe) 0.5 ml ONCE ONCE VAX IM ; Start 11/02/20 at 09:00; Stop 11/02/20 at 09:03; Status DC Morphine Sulfate (Morphine Sulfate) 4 mg PRN Q2HR PRN IV SEVERE PAIN 7-10; Start 11/02/20 at 06:45; Stop 11/02/20 at 22:40; Status DC Ondansetron HCl (Zofran) 4 mg PRN Q6HRS PRN IVP NAUSEA/VOMITING 1ST CHOICE; Start 11/02/20 at 07:00 Prochlorperazine Edisylate (Compazine) 10 mg PRN Q6HRS PRN IVP NAUSEA/VOMITING 2ND CHOICE; Start 11/02/20 at 07:00 Zolpidem Tartrate (Ambien) 5 mg PRN QHS PRN PO INSOMNIA, MAY REPEAT IN 1HR; Start 11/02/20 at 07:00 Morphine Sulfate (Morphine Sulfate) 2 mg PRN Q1HR PRN IV MODERATE PAIN 4-6 Last administered on 11/02/20at 08:35; Start 11/02/20 at 07:00; Stop 11/02/20 at 2 2:40; Status DC Hydromorphone HCl (Dilaudid) 0.4 mg PRN Q1HR PRN IV SEVERE PAIN 7-10; Start 11/02/20 at 07:00; Stop 11/02/20 at 22:41; Status DC Acetaminophen (Tylenol) 650 mg PRN Q6HRS PRN PO Headaches, Temp > 101.5F; Start 11/02/20 at 07:00 Magnesium Hydroxide (Milk Of Magnesia) 2,400 mg PRN Q12HR PRN PO CONSTIPATION 1ST CHOICE; Start 11/02/20 at 07:00; Stop 11/03/20 at 01:25; Status DC Bisacodyl (Dulcolax Supp) 10 mg PRN DAILY PRN [place] CONSTIPATION 2ND CHOICE; Start 11/02/20 at 07:00 Heparin Sodium (Porcine) (Heparin Sodium) 5,000 unit Q8HRS SQ ; Start 11/02/20 at 14:00; Stop 11/02/20 at 14:00; Status Cancel Enoxaparin Sodium (Lovenox 40mg Syringe) 40 mg Q24H SQ ; Start 11/02/20 at 08:00; Stop 11/02/20 at 07:41; Status DC Ondansetron HCl (Zofran) 4 mg PRN Q6HRS PRN IVP NAUSEA/VOMITING; Start 11/02/20 at 08:15; Stop 11/03/20 at 08:14; Status DC Fentanyl Citrate (Fentanyl 2ml Vial) 25 mcg PRN Q5MIN PRN IVP MILD PAIN 1-3; Start 11/02/20 at 08:15; Stop 11/02/20 at 22:40; Status DC Fentanyl Citrate (Fentanyl 2ml Vial) 50 mcg PRN Q5MIN PRN IVP MODERATE TO SEVERE PAIN Last administered on 11/02/20at 11:20; Start 11/02/20 at 08:15; Stop 11/02/20 at 22:40; Status DC Morphine Sulfate (Morphine Sulfate) 1 mg PRN Q10MIN PRN IVP SEVERE PAIN 7-10; Start 11/02/20 at 08:15; Stop 11/02/20 at 22:40; Status DC Ringer's Solution 1,000 ml @ 30 mls/hr Q24H IV ; Start 11/02/20 at 08:15; Stop 11/02/20 at 20:14; Status DC Lidocaine HCl (Xylocaine-Mpf 1% 2ml Vial) 2 ml 1X PRN PRN ID IV START; Start 11/02/20 at 08:15; Stop 11/03/20 at 08:14; Status DC Hydromorphone HCl (Dilaudid) 0.5 mg PRN Q10MIN PRN IVP SEV PAIN, Second choice; Start 11/02/20 at 08:15; Stop 11/02/20 at 22:41; Status DC Prochlorperazine Edisylate (Compazine) 5 mg PACU PRN PRN IVP NAUSEA, MRX1; St art 11/02/20 at 08:15; Stop 11/03/20 at 08:14; Status DC Piperacillin Sod/ Tazobactam Sod 3.375 gm/Sodium Chloride 50 ml @ 100 mls/hr Q6HRS IV ; Start 11/02/20 at 12:00; Status UNV Piperacillin Sod/ Tazobactam Sod 2.25 gm/Sodium Chloride 50 ml @ 100 mls/hr Q6HRS IV Last administered on 11/03/20at 05:44; Start 11/02/20 at 10:00 Propofol (Diprivan) 200 mg STK-MED ONCE IV ; Start 11/02/20 at 10:50; Stop 11/02/20 at 10:51; Status DC Lidocaine HCl (Lidocaine Pf 2% Vial) 5 ml STK-MED ONCE .ROUTE ; Start 11/02/20 at 10:50; Stop 11/02/20 at 10:51; Status DC Dexamethasone Sodium Phosphate (Decadron) 20 mg STK-MED ONCE .ROUTE ; Start at 10:50; Stop 11/02/20 at 10:51; Status DC Ondansetron HCl (Zofran) 4 mg STK-MED ONCE .ROUTE ; Start 11/02/20 at 10:51; Stop 11/02/20 at 10:51; Status DC Rocuronium [place] (Zemuron) 50 mg STK-MED ONCE .ROUTE ; Start 11/02/20 at 10:51; Stop 11/02/20 at 10:52; Status DC Fentanyl Citrate (Fentanyl 2ml Vial) 100 mcg STK-MED ONCE .ROUTE ; Start 11/02/20 at 11:16; Stop 11/02/20 at 11:16; Status DC Iohexol (Omnipaque 300 Mg/ml) 50 ml STK-MED ONCE .ROUTE Last administered on 11/02/20at 12:25; Start 11/02/20 at 11:28; Stop 11/02/20 at 11:28; Status DC Bupivacaine HCl (Sensorcaine Mpf 0.5%) 30 ml STK-MED ONCE .ROUTE Last adminis tered on 11/02/20at 12:25; Start 11/02/20 at 11:28; Stop 11/02/20 at 11:28; Status DC Succinylcholine Chloride (Anectine) 200 mg STK-MED ONCE .ROUTE ; Start 11/02/20 at 11:35; Stop 11/02/20 at 11:35; Status DC Fentanyl Citrate (Fentanyl 2ml Vial) 100 mcg STK-MED ONCE .ROUTE ; Start 11/02/20 at 11:40; Stop 11/02/20 at 11:40; Status DC Norepinephrine Bitartrate 8 mg/ Dextrose 258 ml @ 0 mls/hr CONT PRN IV PER PROTOCOL Last administered on 11/02/20at 15:03; Start 11/02/20 at 12:30; Stop 11/02/20 at 15:03; Status DC Albuterol Sulfate (Ventolin Hfa) 60 puff STK-MED ONCE INH ; Start 11/02/20 at 12:35; Stop 11/02/20 at 12:36; Status DC Cellulose (Surgicel Hemostat 4x8) 1 each STK-MED ONCE .ROUTE Last administered on 11/02/20at 12:46; Start 11/02/20 at 12:38; Stop 11/02/20 at 12:39; Status DC Cellulose (Surgicel Hemostat 4x8) 1 each STK-MED ONCE TP Last administered on 11/02/20at 12:47; Start 11/02/20 at 12:47; Stop 11/02/20 at 12:49; Status DC Cellulose (Surgicel Hemostat 4x8) 1 each STK-MED ONCE .ROUTE Last administered on 11/02/20at 13:01; Start 11/02/20 at 12:56; Stop 11/02/20 at 12:56; Status DC Cellulose (Surgicel Hemostat 4x8) 1 each STK-MED ONCE .ROUTE ; Start 11/02/20 at 12:56; Stop 11/02/20 at 12:56; Status DC Sodium Bicarbonate (Sodium Bicarb Adult 8.4% Syr) 50 meq STK-MED ONCE .ROUTE ; Start 11/02/20 at 13:21; Stop 11/02/20 at 13:21; Status DC Phenylephrine HCl (Orestes-Synephrine Inj) 10 mg STK-MED ONCE .ROUTE ; Start 11/02/20 at 13:37; Stop 11/02/20 at 13:37; Status DC Fentanyl Citrate 30 ml @ 2.5 mls/hr CONT PRN IV SEE PROTOCOL Last administered on 11/03/20at 00:45; Start 11/02/20 at 14:00 Midazolam HCl 100 ml @ 1 mls/hr CONT PRN IV SEE PROTOCOL Last administered on 11/03/20at 03:15; Start 11/02/20 at 14:00 Epinephrine HCl (Adrenalin) 1 mg STK-MED ONCE .ROUTE ; Start 11/02/20 at 14:11; Stop 11/02/20 at 14:11; Status DC Sodium Bicarbonate (Sodium Bicarb Adult 8.4% Syr) 50 meq STK-MED ONCE .ROUTE ; Start 11/02/20 at 14:27; Stop 11/02/20 at 14:28; Status DC Sodium Bicarbonate (Sodium Bicarb Adult 8.4% Syr) 100 meq 1X ONCE IV Last administered on 11/02/20at 14:44; Start 11/02/20 at 14:45; Stop 11/02/20 at 14:46; Status DC Sodium Chloride 1,000 ml @ 1,000 mls/hr 1X ONCE IV Last administered on 11/02/20at 15:00; Start 11/02/20 at 15:00; Stop 11/02/20 at 15:59; Status DC Vasopressin 20 unit/Dextrose 101 ml @ 12 mls/hr CONT PRN IV SEE I/O RECORD Last administered on 11/03/20at 08:51; Start 11/02/20 at 15:15 Linezolid/Dextrose 300 ml @ 300 mls/hr Q12HR IV Last administered on 11/02/20at 16:26; Start 11/02/20 at 17:00 Famotidine (Pepcid Vial) 20 mg QHS IVP Last administered on 11/02/20at 20:59; Start 11/02/20 at 21:00 Furosemide (Lasix) 40 mg 1X ONCE IVP Last administered on 11/02/20at 17:47; Start 11/02/20 at 17:15; Stop 11/02/20 at 17:16; Status DC Sodium Chloride 1,000 ml @ 1,000 mls/hr 1X ONCE IV Last administered on 11/02/20at 17:30; Start 11/02/20 at 17:30; Stop 11/02/20 at 18:29; Status DC Micafungin Sodium 100 mg/Dextrose 100 ml @ 100 mls/hr Q24H IV Last administered on 11/02/20at 17:40; Start 11/02/20 at 18:00 Sodium Bicarbonate 150 meq/Dextrose 1,150 ml @ 150 mls/hr Q7H40M PRN IV IV CONT. Last administered on 11/03/20at 09:33; Start 11/02/20 at 19:00 Norepinephrine Bitartrate 8 mg/ Dextrose 258 ml @ 20.259 mls/ hr CONT PRN IV PER PROTOCOL Last administered on 11/03/20at 07:02; Start 11/03/20 at 05:30; Stop 11/03/20 at 07:58; Status DC Perflutren Protein Type A Microsphe (Optison) 0.66 mg STK-MED ONCE IV ; Start 11/03/20 at 07:25; Stop 11/03/20 at 07:25; Status DC Norepinephrine Bitartrate 32 mg/ Dextrose 282 ml @ 5.536 mls/ hr CONT PRN IV PER PROTOCOL; Start 11/03/20 at 08:00 Levofloxacin/ Dextrose 100 ml @ 100 mls/hr Q24H IV ; Start 11/03/20 at 10:00 Active Scripts Active Reported Ibuprofen 800 Mg Tablet 800 Mg PO PRN Q6HRS PRN Pertinent Labs/Test Laboratory Tests Test 11/01/20 21:12 11/01/20 22:53 11/02/20 10:05 11/02/20 12:35 White Blood Count 12.4 x10^3/uL (4.0-11.0) 15.0 x10^3/uL (4.0-11.0) Red Blood Count 3.65 x10^6/uL (3.50-5.40) 4.01 x10^6/uL (3.50-5.40) Hemoglobin 10.3 g/dL (12.0-15.5) 11.4 g/dL (12.0-15.5) Hematocrit 30.8 % (36.0-47.0) 35.7 % (36.0-47.0) Mean Corpuscular Volume 85 fL (79-100) 89 fL (79-100) Mean Corpuscular Hemoglobin 28 pg (25-35) 29 pg (25-35) Mean Corpuscular Hemoglobin Concent 34 g/dL (31-37) 32 g/dL (31-37) Red Cell Distribution Width 13.7 % (11.5-14.5) 14.2 % (11.5-14.5) Platelet Count 246 x10^3/uL (140-400) 191 x10^3/uL (140-400) Neutrophils (%) (Auto) 70 % (31-73) 75 % (31-73) Lymphocytes (%) (Auto) 21 % (24-48) 16 % (24-48) Monocytes (%) (Auto) 8 % (0-9) 9 % (0-9) Eosinophils (%) (Auto) 1 % (0-3) 1 % (0-3) Basophils (%) (Auto) 0 % (0-3) 0 % (0-3) Neutrophils # (Auto) 8.7 x10^3/uL (1.8-7.7) 11.2 x10^3/uL (1.8-7.7) Lymphocytes # (Auto) 2.6 x10^3/uL (1.0-4.8) 2.3 x10^3/uL (1.0-4.8) Monocytes # (Auto) 1.0 x10^3/uL (0.0-1.1) 1.4 x10^3/uL (0.0-1.1) Eosinophils # (Auto) 0.1 x10^3/uL (0.0-0.7) 0.1 x10^3/uL (0.0-0.7) Basophils # (Auto) 0.0 x10^3/uL (0.0-0.2) 0.0 x10^3/uL (0.0-0.2) Sodium Level 127 mmol/L (136-145) 129 mmol/L (136-145) Potassium Level 4.2 mmol/L (3.5-5.1) 4.7 mmol/L (3.5-5.1) Chloride Level 94 mmol/L (98-107) 95 mmol/L (98-107) Carbon Dioxide Level 18 mmol/L (21-32) 12 mmol/L (21-32) Anion Gap 15 (6-14) 22 (6-14) Blood Urea Nitrogen 54 mg/dL (7-20) 63 mg/dL (7-20) Creatinine 1.8 mg/dL (0.6-1.0) 2.2 mg/dL (0.6-1.0) Estimated GFR (Cockcroft-Gault) 34.3 27.2 BUN/Creatinine Ratio 30 (6-20) 29 (6-20) Glucose Level 151 mg/dL (70-99) 78 mg/dL (70-99) 86 mg/dL (70-99) Calcium Level 8.4 mg/dL (8.5-10.1) 8.4 mg/dL (8.5-10.1) Magnesium Level 3.1 mg/dL (1.8-2.4) Total Bilirubin 1.0 mg/dL (0.2-1.0) 1.9 mg/dL (0.2-1.0) Aspartate Amino Transf (AST/SGOT) 157 U/L (15-37) 309 U/L (15-37) Alanine Aminotransferase (ALT/SGPT) 177 U/L (14-59) 299 U/L (14-59) Alkaline Phosphatase 231 U/L (46-116) 231 U/L (46-116) Total Protein 6.7 g/dL (6.4-8.2) 7.1 g/dL (6.4-8.2) Albumin 2.5 g/dL (3.4-5.0) 2.5 g/dL (3.4-5.0) Albumin/Globulin Ratio 0.6 (1.0-1.7) 0.5 (1.0-1.7) Lipase 135 U/L (73-393) Ethyl Alcohol Level < 10 mg/dL (0-10) Coronavirus (PCR) Not detected (Not Detected) SARS-CoV-2 Antigen (Rapid) Negative (NEGATIVE) Bedside Hemoglobin (Calculated) 9.5 g/dL (12-15) Bedside Hematocrit 28 % (36-40) Bedside Arterial pH 7.17 (7.35-7.45) Arterial Blood pH (Temp corrected) 7.17 Bedside Arterial pCO2 32 mmHg (35-45) Arterial Blood pCO2 (Temp correct) 32 mmHg Bedside Arterial pO2 203 mmHg (75-100) Arterial Blood pO2 (Temp corrected) 203 mmHg Bedside Arterial HCO3 12 mmol/L (21-28) Bedside Arterial Total CO2 13 mmol/L (21-32) Arterial Bld O2 Saturation (Measur) 99 % (95-99) Bedside Arterial Blood Base Excess -17 mmol/L (0-3) Bedside FiO2 21.0 Bedside Sodium 129 mmol/L (135-145) Bedside Potassium 4.4 mmol/L (3.5-5.0) Bedside Ionized Calcium (Ashley) 1.01 mmol/L (1.13-1.32) Test 11/02/20 12:57 11/02/20 13:00 11/02/20 13:15 11/02/20 14:22 White Blood Count 14.3 x10^3/uL (4.0-11.0) Red Blood Count 3.24 x10^6/uL (3.50-5.40) Hemoglobin 9.2 g/dL (12.0-15.5) Hematocrit 28.3 % (36.0-47.0) Mean Corpuscular Volume 87 fL (79-100) Mean Corpuscular Hemoglobin 28 pg (25-35) Mean Corpuscular Hemoglobin Concent 33 g/dL (31-37) Red Cell Distribution Width 14.0 % (11.5-14.5) Platelet Count 168 x10^3/uL (140-400) Prothrombin Time 19.6 SEC (11.7-14.0) Prothromb Time International Ratio 1.7 (0.8-1.1) Activated Partial Thromboplast Time 29 SEC (24-38) Sodium Level 134 mmol/L (136-145) Potassium Level 5.1 mmol/L (3.5-5.1) Chloride Level 97 mmol/L (98-107) Carbon Dioxide Level 16 mmol/L (21-32) Anion Gap 21 (6-14) Blood Urea Nitrogen 64 mg/dL (7-20) Creatinine 2.5 mg/dL (0.6-1.0) Estimated GFR (Cockcroft-Gault) 23.5 BUN/Creatinine Ratio 26 (6-20) Glucose Level 78 mg/dL (70-99) Calcium Level 7.1 mg/dL (8.5-10.1) Iron Level 61 ug/dL (50-170) Total Iron Binding Capacity 224 ug/dL (250-450) Iron Saturation 27 % (15-34) Total Bilirubin 1.7 mg/dL (0.2-1.0) Aspartate Amino Transf (AST/SGOT) 388 U/L (15-37) Alanine Aminotransferase (ALT/SGPT) 338 U/L (14-59) Alkaline Phosphatase 184 U/L (46-116) Total Protein 5.0 g/dL (6.4-8.2) Albumin 2.0 g/dL (3.4-5.0) Albumin/Globulin Ratio 0.7 (1.0-1.7) Hepatitis A IgM Antibody Nonreactive (Nonreactive) Hepatitis B Surface Antigen Nonreactive (Nonreactive) Hepatitis B Core IgM Antibody Nonreactive (Nonreactive) Hepatitis C IgG Antibody Nonreactive (Nonreactive) Bedside Arterial pH 7.16 (7.35-7.45) Bedside Arterial pCO2 45 mmHg (35-45) Bedside Arterial pO2 184 mmHg (75-100) Arterial Blood pO2 (Temp corrected) mmHg 144 mmHg Arterial Blood HCO3 16 mmol/L (21-28) 13 mmol/L (21-28) Bedside Arterial Blood O2 Sat 99 % (95-99) Bedside FiO2 100 O2 Saturation 98 % (92-99) Arterial Blood pH 7.18 (7.35-7.45) Arterial Blood pH (Temp corrected) 7.19 Arterial Blood pCO2 at Patient Temp 36 mmHg (35-46) Arterial Blood pCO2 (Temp correct) 35 mmHg Arterial Blood pO2 at Patient Temp 149 mmHg (65-108) Arterial Blood Base Excess -14 mmol/L (-3-3) FiO2 100 Test 11/02/20 16:30 11/02/20 17:41 11/02/20 18:49 11/02/20 21:15 Lactic Acid Level 11.8 mmol/L (0.4-2.0) 13.3 mmol/L (0.4-2.0) O2 Saturation 99 % (92-99) Arterial Blood pH 7.21 (7.35-7.45) Arterial Blood pH (Temp corrected) 7.22 Arterial Blood pCO2 at Patient Temp 28 mmHg (35-46) Arterial Blood pCO2 (Temp correct) 27 mmHg Arterial Blood pO2 at Patient Temp 193 mmHg (65-108) Arterial Blood pO2 (Temp corrected) 189 mmHg Arterial Blood HCO3 11 mmol/L (21-28) Arterial Blood Base Excess -16 mmol/L (-3-3) FiO2 100 Urine Collection Type Unknown Urine Color Radha Urine Clarity Cloudy Urine pH 5.0 (<5.0-8.0) Urine Specific [place] 1.020 (1.000-1.030) Urine Protein 30 mg/dL (NEG-TRACE) Urine Glucose (UA) Negative mg/dL (NEG) Urine Ketones (Stick) Negative mg/dL (NEG) Urine Blood Small (NEG) Urine Nitrite Negative (NEG) Urine Bilirubin Negative (NEG) Urine Urobilinogen Dipstick 1.0 mg/dL (0.2 mg/dL) Urine Leukocyte Esterase Negative (NEG) Urine RBC 6-10 /HPF (0-2) Urine WBC 1-4 /HPF (0-4) Urine Transitional Epithelial Cells Few /LPF Urine Amorphous Sediment Present /HPF Urine Bacteria 0 /HPF (0-FEW) Urine Hyaline Casts Moderate /HPF Urine Waxy Casts Occasional /HPF Urine Mucus Slight /LPF Urine Opiates Screen Pos (NEG) Urine Methadone Screen Neg (NEG) Urine Barbiturates Neg (NEG) Urine Phencyclidine Screen Neg (NEG) Urine Amphetamine/Methamphetamine Neg (NEG) Urine Benzodiazepines Screen Pos (NEG) Urine Cocaine Screen Neg (NEG) Urine Cannabinoids Screen Pos (NEG) Urine Ethyl Alcohol Neg (NEG) Test 11/03/20 08:50 O2 Saturation 96 % (92-99) Arterial Blood pH 7.42 (7.35-7.45) Arterial Blood pCO2 at Patient Temp 36 mmHg (35-46) Arterial Blood pO2 at Patient Temp 98 mmHg (65-108) Arterial Blood HCO3 23 mmol/L (21-28) Arterial Blood Base Excess -2 mmol/L (-3-3) FiO2 60% vent Laboratory Tests Test 11/02/20 12:35 11/02/20 12:57 11/02/20 13:00 11/02/20 13:15 Bedside Hemoglobin (Calculated) 9.5 g/dL (12-15) Bedside Hematocrit 28 % (36-40) Bedside Arterial pH 7.17 (7.35-7.45) 7.16 (7.35-7.45) Arterial Blood pH (Temp corrected) 7.17 Bedside Arterial pCO2 32 mmHg (35-45) 45 mmHg (35-45) Arterial Blood pCO2 (Temp correct) 32 mmHg Bedside Arterial pO2 203 mmHg (75-100) 184 mmHg (75-100) Arterial Blood pO2 (Temp corrected) 203 mmHg mmHg Bedside Arterial HCO3 12 mmol/L (21-28) Bedside Arterial Total CO2 13 mmol/L (21-32) Arterial Bld O2 Saturation (Measur) 99 % (95-99) Bedside Arterial Blood Base Excess -17 mmol/L (0-3) Bedside FiO2 21.0 100 Bedside Sodium 129 mmol/L (135-145) Bedside Potassium 4.4 mmol/L (3.5-5.0) Glucose Level 86 mg/dL (70-99) 78 mg/dL (70-99) Bedside Ionized Calcium (Ashley) 1.01 mmol/L (1.13-1.32) White Blood Count 14.3 x10^3/uL (4.0-11.0) Red Blood Count 3.24 x10^6/uL (3.50-5.40) Hemoglobin 9.2 g/dL (12.0-15.5) Hematocrit 28.3 % (36.0-47.0) Mean Corpuscular Volume 87 fL (79-100) Mean Corpuscular Hemoglobin 28 pg (25-35) Mean Corpuscular Hemoglobin Concent 33 g/dL (31-37) Red Cell Distribution Width 14.0 % (11.5-14.5) Platelet Count 168 x10^3/uL (140-400) Prothrombin Time 19.6 SEC (11.7-14.0) Prothromb Time International Ratio 1.7 (0.8-1.1) Activated Partial Thromboplast Time 29 SEC (24-38) Sodium Level 134 mmol/L (136-145) Potassium Level 5.1 mmol/L (3.5-5.1) Chloride Level 97 mmol/L (98-107) Carbon Dioxide Level 16 mmol/L (21-32) Anion Gap 21 (6-14) Blood Urea Nitrogen 64 mg/dL (7-20) Creatinine 2.5 mg/dL (0.6-1.0) Estimated GFR (Cockcroft-Gault) 23.5 BUN/Creatinine Ratio 26 (6-20) Calcium Level 7.1 mg/dL (8.5-10.1) Iron Level 61 ug/dL (50-170) Total Iron Binding Capacity 224 ug/dL (250-450) Iron Saturation 27 % (15-34) Total Bilirubin 1.7 mg/dL (0.2-1.0) Aspartate Amino Transf (AST/SGOT) 388 U/L (15-37) Alanine Aminotransferase (ALT/SGPT) 338 U/L (14-59) Alkaline Phosphatase 184 U/L (46-116) Total Protein 5.0 g/dL (6.4-8.2) Albumin 2.0 g/dL (3.4-5.0) Albumin/Globulin Ratio 0.7 (1.0-1.7) Hepatitis A IgM Antibody Nonreactive (Nonreactive) Hepatitis B Surface Antigen Nonreactive (Nonreactive) Hepatitis B Core IgM Antibody Nonreactive (Nonreactive) Hepatitis C IgG Antibody Nonreactive (Nonreactive) Arterial Blood HCO3 16 mmol/L (21-28) Bedside Arterial Blood O2 Sat 99 % (95-99) Test 11/02/20 14:22 11/02/20 16:30 11/02/20 17:41 11/02/20 18:49 O2 Saturation 98 % (92-99) 99 % (92-99) Arterial Blood pH 7.18 (7.35-7.45) 7.21 (7.35-7.45) Arterial Blood pH (Temp corrected) 7.19 7.22 Arterial Blood pCO2 at Patient Temp 36 mmHg (35-46) 28 mmHg (35-46) Arterial Blood pCO2 (Temp correct) 35 mmHg 27 mmHg Arterial Blood pO2 at Patient Temp 149 mmHg (65-108) 193 mmHg (65-108) Arterial Blood pO2 (Temp corrected) 144 mmHg 189 mmHg Arterial Blood HCO3 13 mmol/L (21-28) 11 mmol/L (21-28) Arterial Blood Base Excess -14 mmol/L (-3-3) -16 mmol/L (-3-3) FiO2 100 100 Lactic Acid Level 11.8 mmol/L (0.4-2.0) Urine Collection Type Unknown Urine Color Radha Urine Clarity Cloudy Urine pH 5.0 (<5.0-8.0) Urine Specific [place] 1.020 (1.000-1.030) Urine Protein 30 mg/dL (NEG-TRACE) Urine Glucose (UA) Negative mg/dL (NEG) Urine Ketones (Stick) Negative mg/dL (NEG) Urine Blood Small (NEG) Urine Nitrite Negative (NEG) Urine Bilirubin Negative (NEG) Urine Urobilinogen Dipstick 1.0 mg/dL (0.2 mg/dL) Urine Leukocyte Esterase Negative (NEG) Urine RBC 6-10 /HPF (0-2) Urine WBC 1-4 /HPF (0-4) Urine Transitional Epithelial Cells Few /LPF Urine Amorphous Sediment Present /HPF Urine Bacteria 0 /HPF (0-FEW) Urine Hyaline Casts Moderate /HPF Urine Waxy Casts Occasional /HPF Urine Mucus Slight /LPF Urine Opiates Screen Pos (NEG) Urine Methadone Screen Neg (NEG) Urine Barbiturates Neg (NEG) Urine Phencyclidine Screen Neg (NEG) Urine Amphetamine/Methamphetamine Neg (NEG) Urine Benzodiazepines Screen Pos (NEG) Urine Cocaine Screen Neg (NEG) Urine Cannabinoids Screen Pos (NEG) Urine Ethyl Alcohol Neg (NEG) Test 11/02/20 21:15 11/03/20 08:50 Lactic Acid Level 13.3 mmol/L (0.4-2.0) O2 Saturation 96 % (92-99) Arterial Blood pH 7.42 (7.35-7.45) Arterial Blood pCO2 at Patient Temp 36 mmHg (35-46) Arterial Blood pO2 at Patient Temp 98 mmHg (65-108) Arterial Blood HCO3 23 mmol/L (21-28) Arterial Blood Base Excess -2 mmol/L (-3-3) FiO2 60% vent LAST VITALS Vital Signs Date Time Temp Pulse Resp B/P (MAP) Pulse Ox O2 Delivery O2 Flow Rate FiO2 11/03/20 08:29 94 Ventilator 11/03/20 08:00 99.9 91 19 99.9 11/02/20 15:11 2.0 JHON OBANDO MD Nov 03, 2020 10:15
[2020-11-03 10:17] LABS: CALCIUM 6.2 mg/dL (8.5-10.1); CREATININE 2.9 mg/dL (0.6-1.0); GFR 19.8; POTASSIUM 4.4 mmol/L (3.5-5.1)
[2020-11-03] MEDS: NOREPINEPHRINE VIAL 32 MG in IV DEXTROSE 5% 250 ML IV PRN (10:18)
[2020-11-03 10:19] LABS: PROTHROMBIN TIME PATIENT 26.4 SEC (11.7-14.0)
--- NOTE | 2020-11-03 10:22 | PDOC ---
PULMONARY PROGRESS NOTES DATE: 11/03/20 TIME: 10:17 Vitals Vital Signs Date Time Temp Pulse Resp B/P (MAP) Pulse Ox O2 Delivery O2 Flow Rate FiO2 11/03/20 08:29 94 Ventilator 11/03/20 08:00 99.9 91 19 99.9 11/02/20 15:11 2.0 Labs Laboratory Tests Test 11/01/20 21:12 11/01/20 22:53 11/02/20 10:05 11/02/20 12:35 White Blood Count 12.4 x10^3/uL (4.0-11.0) 15.0 x10^3/uL (4.0-11.0) Red Blood Count 3.65 x10^6/uL (3.50-5.40) 4.01 x10^6/uL (3.50-5.40) Hemoglobin 10.3 g/dL (12.0-15.5) 11.4 g/dL (12.0-15.5) Hematocrit 30.8 % (36.0-47.0) 35.7 % (36.0-47.0) Mean Corpuscular Volume 85 fL (79-100) 89 fL (79-100) Mean Corpuscular Hemoglobin 28 pg (25-35) 29 pg (25-35) Mean Corpuscular Hemoglobin Concent 34 g/dL (31-37) 32 g/dL (31-37) Red Cell Distribution Width 13.7 % (11.5-14.5) 14.2 % (11.5-14.5) Platelet Count 246 x10^3/uL (140-400) 191 x10^3/uL (140-400) Neutrophils (%) (Auto) 70 % (31-73) 75 % (31-73) Lymphocytes (%) (Auto) 21 % (24-48) 16 % (24-48) Monocytes (%) (Auto) 8 % (0-9) 9 % (0-9) Eosinophils (%) (Auto) 1 % (0-3) 1 % (0-3) Basophils (%) (Auto) 0 % (0-3) 0 % (0-3) Neutrophils # (Auto) 8.7 x10^3/uL (1.8-7.7) 11.2 x10^3/uL (1.8-7.7) Lymphocytes # (Auto) 2.6 x10^3/uL (1.0-4.8) 2.3 x10^3/uL (1.0-4.8) Monocytes # (Auto) 1.0 x10^3/uL (0.0-1.1) 1.4 x10^3/uL (0.0-1.1) Eosinophils # (Auto) 0.1 x10^3/uL (0.0-0.7) 0.1 x10^3/uL (0.0-0.7) Basophils # (Auto) 0.0 x10^3/uL (0.0-0.2) 0.0 x10^3/uL (0.0-0.2) Sodium Level 127 mmol/L (136-145) 129 mmol/L (136-145) Potassium Level 4.2 mmol/L (3.5-5.1) 4.7 mmol/L (3.5-5.1) Chloride Level 94 mmol/L (98-107) 95 mmol/L (98-107) Carbon Dioxide Level 18 mmol/L (21-32) 12 mmol/L (21-32) Anion Gap 15 (6-14) 22 (6-14) Blood Urea Nitrogen 54 mg/dL (7-20) 63 mg/dL (7-20) Creatinine 1.8 mg/dL (0.6-1.0) 2.2 mg/dL (0.6-1.0) Estimated GFR (Cockcroft-Gault) 34.3 27.2 BUN/Creatinine Ratio 30 (6-20) 29 (6-20) Glucose Level 151 mg/dL (70-99) 78 mg/dL (70-99) 86 mg/dL (70-99) Calcium Level 8.4 mg/dL (8.5-10.1) 8.4 mg/dL (8.5-10.1) Magnesium Level 3.1 mg/dL (1.8-2.4) Total Bilirubin 1.0 mg/dL (0.2-1.0) 1.9 mg/dL (0.2-1.0) Aspartate Amino Transf (AST/SGOT) 157 U/L (15-37) 309 U/L (15-37) Alanine Aminotransferase (ALT/SGPT) 177 U/L (14-59) 299 U/L (14-59) Alkaline Phosphatase 231 U/L (46-116) 231 U/L (46-116) Total Protein 6.7 g/dL (6.4-8.2) 7.1 g/dL (6.4-8.2) Albumin 2.5 g/dL (3.4-5.0) 2.5 g/dL (3.4-5.0) Albumin/Globulin Ratio 0.6 (1.0-1.7) 0.5 (1.0-1.7) Lipase 135 U/L (73-393) Ethyl Alcohol Level < 10 mg/dL (0-10) Coronavirus (PCR) Not detected (Not Detected) SARS-CoV-2 Antigen (Rapid) Negative (NEGATIVE) Bedside Hemoglobin (Calculated) 9.5 g/dL (12-15) Bedside Hematocrit 28 % (36-40) Bedside Arterial pH 7.17 (7.35-7.45) Arterial Blood pH (Temp corrected) 7.17 Bedside Arterial pCO2 32 mmHg (35-45) Arterial Blood pCO2 (Temp correct) 32 mmHg Bedside Arterial pO2 203 mmHg (75-100) Arterial Blood pO2 (Temp corrected) 203 mmHg Bedside Arterial HCO3 12 mmol/L (21-28) Bedside Arterial Total CO2 13 mmol/L (21-32) Arterial Bld O2 Saturation (Measur) 99 % (95-99) Bedside Arterial Blood Base Excess -17 mmol/L (0-3) Bedside FiO2 21.0 Bedside Sodium 129 mmol/L (135-145) Bedside Potassium 4.4 mmol/L (3.5-5.0) Bedside Ionized Calcium (Ashley) 1.01 mmol/L (1.13-1.32) Test 11/02/20 12:57 11/02/20 13:00 11/02/20 13:15 11/02/20 14:22 White Blood Count 14.3 x10^3/uL (4.0-11.0) Red Blood Count 3.24 x10^6/uL (3.50-5.40) Hemoglobin 9.2 g/dL (12.0-15.5) Hematocrit 28.3 % (36.0-47.0) Mean Corpuscular Volume 87 fL (79-100) Mean Corpuscular Hemoglobin 28 pg (25-35) Mean Corpuscular Hemoglobin Concent 33 g/dL (31-37) Red Cell Distribution Width 14.0 % (11.5-14.5) Platelet Count 168 x10^3/uL (140-400) Prothrombin Time 19.6 SEC (11.7-14.0) Prothromb Time International Ratio 1.7 (0.8-1.1) Activated Partial Thromboplast Time 29 SEC (24-38) Sodium Level 134 mmol/L (136-145) Potassium Level 5.1 mmol/L (3.5-5.1) Chloride Level 97 mmol/L (98-107) Carbon Dioxide Level 16 mmol/L (21-32) Anion Gap 21 (6-14) Blood Urea Nitrogen 64 mg/dL (7-20) Creatinine 2.5 mg/dL (0.6-1.0) Estimated GFR (Cockcroft-Gault) 23.5 BUN/Creatinine Ratio 26 (6-20) Glucose Level 78 mg/dL (70-99) Calcium Level 7.1 mg/dL (8.5-10.1) Iron Level 61 ug/dL (50-170) Total Iron Binding Capacity 224 ug/dL (250-450) Iron Saturation 27 % (15-34) Total Bilirubin 1.7 mg/dL (0.2-1.0) Aspartate Amino Transf (AST/SGOT) 388 U/L (15-37) Alanine Aminotransferase (ALT/SGPT) 338 U/L (14-59) Alkaline Phosphatase 184 U/L (46-116) Total Protein 5.0 g/dL (6.4-8.2) Albumin 2.0 g/dL (3.4-5.0) Albumin/Globulin Ratio 0.7 (1.0-1.7) Hepatitis A IgM Antibody Nonreactive (Nonreactive) Hepatitis B Surface Antigen Nonreactive (Nonreactive) Hepatitis B Core IgM Antibody Nonreactive (Nonreactive) Hepatitis C IgG Antibody Nonreactive (Nonreactive) Bedside Arterial pH 7.16 (7.35-7.45) Bedside Arterial pCO2 45 mmHg (35-45) Bedside Arterial pO2 184 mmHg (75-100) Arterial Blood pO2 (Temp corrected) mmHg 144 mmHg Arterial Blood HCO3 16 mmol/L (21-28) 13 mmol/L (21-28) Bedside Arterial Blood O2 Sat 99 % (95-99) Bedside FiO2 100 O2 Saturation 98 % (92-99) Arterial Blood pH 7.18 (7.35-7.45) Arterial Blood pH (Temp corrected) 7.19 Arterial Blood pCO2 at Patient Temp 36 mmHg (35-46) Arterial Blood pCO2 (Temp correct) 35 mmHg Arterial Blood pO2 at Patient Temp 149 mmHg (65-108) Arterial Blood Base Excess -14 mmol/L (-3-3) FiO2 100 Test 11/02/20 16:30 11/02/20 17:41 11/02/20 18:49 11/02/20 21:15 Lactic Acid Level 11.8 mmol/L (0.4-2.0) 13.3 mmol/L (0.4-2.0) O2 Saturation 99 % (92-99) Arterial Blood pH 7.21 (7.35-7.45) Arterial Blood pH (Temp corrected) 7.22 Arterial Blood pCO2 at Patient Temp 28 mmHg (35-46) Arterial Blood pCO2 (Temp correct) 27 mmHg Arterial Blood pO2 at Patient Temp 193 mmHg (65-108) Arterial Blood pO2 (Temp corrected) 189 mmHg Arterial Blood HCO3 11 mmol/L (21-28) Arterial Blood Base Excess -16 mmol/L (-3-3) FiO2 100 Urine Collection Type Unknown Urine Color Radha Urine Clarity Cloudy Urine pH 5.0 (<5.0-8.0) Urine Specific [place] 1.020 (1.000-1.030) Urine Protein 30 mg/dL (NEG-TRACE) Urine Glucose (UA) Negative mg/dL (NEG) Urine Ketones (Stick) Negative mg/dL (NEG) Urine Blood Small (NEG) Urine Nitrite Negative (NEG) Urine Bilirubin Negative (NEG) Urine Urobilinogen Dipstick 1.0 mg/dL (0.2 mg/dL) Urine Leukocyte Esterase Negative (NEG) Urine RBC 6-10 /HPF (0-2) Urine WBC 1-4 /HPF (0-4) Urine Transitional Epithelial Cells Few /LPF Urine Amorphous Sediment Present /HPF Urine Bacteria 0 /HPF (0-FEW) Urine Hyaline Casts Moderate /HPF Urine Waxy Casts Occasional /HPF Urine Mucus Slight /LPF Urine Opiates Screen Pos (NEG) Urine Methadone Screen Neg (NEG) Urine Barbiturates Neg (NEG) Urine Phencyclidine Screen Neg (NEG) Urine Amphetamine/Methamphetamine Neg (NEG) Urine Benzodiazepines Screen Pos (NEG) Urine Cocaine Screen Neg (NEG) Urine Cannabinoids Screen Pos (NEG) Urine Ethyl Alcohol Neg (NEG) Test 11/03/20 08:50 O2 Saturation 96 % (92-99) Arterial Blood pH 7.42 (7.35-7.45) Arterial Blood pCO2 at Patient Temp 36 mmHg (35-46) Arterial Blood pO2 at Patient Temp 98 mmHg (65-108) Arterial Blood HCO3 23 mmol/L (21-28) Arterial Blood Base Excess -2 mmol/L (-3-3) FiO2 60% vent Laboratory Tests Test 11/02/20 12:35 11/02/20 12:57 11/02/20 13:00 11/02/20 13:15 Bedside Hemoglobin (Calculated) 9.5 g/dL (12-15) Bedside Hematocrit 28 % (36-40) Bedside Arterial pH 7.17 (7.35-7.45) 7.16 (7.35-7.45) Arterial Blood pH (Temp corrected) 7.17 Bedside Arterial pCO2 32 mmHg (35-45) 45 mmHg (35-45) Arterial Blood pCO2 (Temp correct) 32 mmHg Bedside Arterial pO2 203 mmHg (75-100) 184 mmHg (75-100) Arterial Blood pO2 (Temp corrected) 203 mmHg mmHg Bedside Arterial HCO3 12 mmol/L (21-28) Bedside Arterial Total CO2 13 mmol/L (21-32) Arterial Bld O2 Saturation (Measur) 99 % (95-99) Bedside Arterial Blood Base Excess -17 mmol/L (0-3) Bedside FiO2 21.0 100 Bedside Sodium 129 mmol/L (135-145) Bedside Potassium 4.4 mmol/L (3.5-5.0) Glucose Level 86 mg/dL (70-99) 78 mg/dL (70-99) Bedside Ionized Calcium (Ashley) 1.01 mmol/L (1.13-1.32) White Blood Count 14.3 x10^3/uL (4.0-11.0) Red Blood Count 3.24 x10^6/uL (3.50-5.40) Hemoglobin 9.2 g/dL (12.0-15.5) Hematocrit 28.3 % (36.0-47.0) Mean Corpuscular Volume 87 fL (79-100) Mean Corpuscular Hemoglobin 28 pg (25-35) Mean Corpuscular Hemoglobin Concent 33 g/dL (31-37) Red Cell Distribution Width 14.0 % (11.5-14.5) Platelet Count 168 x10^3/uL (140-400) Prothrombin Time 19.6 SEC (11.7-14.0) Prothromb Time International Ratio 1.7 (0.8-1.1) Activated Partial Thromboplast Time 29 SEC (24-38) Sodium Level 134 mmol/L (136-145) Potassium Level 5.1 mmol/L (3.5-5.1) Chloride Level 97 mmol/L (98-107) Carbon Dioxide Level 16 mmol/L (21-32) Anion Gap 21 (6-14) Blood Urea Nitrogen 64 mg/dL (7-20) Creatinine 2.5 mg/dL (0.6-1.0) Estimated GFR (Cockcroft-Gault) 23.5 BUN/Creatinine Ratio 26 (6-20) Calcium Level 7.1 mg/dL (8.5-10.1) Iron Level 61 ug/dL (50-170) Total Iron Binding Capacity 224 ug/dL (250-450) Iron Saturation 27 % (15-34) Total Bilirubin 1.7 mg/dL (0.2-1.0) Aspartate Amino Transf (AST/SGOT) 388 U/L (15-37) Alanine Aminotransferase (ALT/SGPT) 338 U/L (14-59) Alkaline Phosphatase 184 U/L (46-116) Total Protein 5.0 g/dL (6.4-8.2) Albumin 2.0 g/dL (3.4-5.0) Albumin/Globulin Ratio 0.7 (1.0-1.7) Hepatitis A IgM Antibody Nonreactive (Nonreactive) Hepatitis B Surface Antigen Nonreactive (Nonreactive) Hepatitis B Core IgM Antibody Nonreactive (Nonreactive) Hepatitis C IgG Antibody Nonreactive (Nonreactive) Arterial Blood HCO3 16 mmol/L (21-28) Bedside Arterial Blood O2 Sat 99 % (95-99) Test 11/02/20 14:22 11/02/20 16:30 11/02/20 17:41 11/02/20 18:49 O2 Saturation 98 % (92-99) 99 % (92-99) Arterial Blood pH 7.18 (7.35-7.45) 7.21 (7.35-7.45) Arterial Blood pH (Temp corrected) 7.19 7.22 Arterial Blood pCO2 at Patient Temp 36 mmHg (35-46) 28 mmHg (35-46) Arterial Blood pCO2 (Temp correct) 35 mmHg 27 mmHg Arterial Blood pO2 at Patient Temp 149 mmHg (65-108) 193 mmHg (65-108) Arterial Blood pO2 (Temp corrected) 144 mmHg 189 mmHg Arterial Blood HCO3 13 mmol/L (21-28) 11 mmol/L (21-28) Arterial Blood Base Excess -14 mmol/L (-3-3) -16 mmol/L (-3-3) FiO2 100 100 Lactic Acid Level 11.8 mmol/L (0.4-2.0) Urine Collection Type Unknown Urine Color Radha Urine Clarity Cloudy Urine pH 5.0 (<5.0-8.0) Urine Specific Happy 1.020 (1.000-1.030) Urine Protein 30 mg/dL (NEG-TRACE) Urine Glucose (UA) Negative mg/dL (NEG) Urine Ketones (Stick) Negative mg/dL (NEG) Urine Blood Small (NEG) Urine Nitrite Negative (NEG) Urine Bilirubin Negative (NEG) Urine Urobilinogen Dipstick 1.0 mg/dL (0.2 mg/dL) Urine Leukocyte Esterase Negative (NEG) Urine RBC 6-10 /HPF (0-2) Urine WBC 1-4 /HPF (0-4) Urine Transitional Epithelial Cells Few /LPF Urine Amorphous Sediment Present /HPF Urine Bacteria 0 /HPF (0-FEW) Urine Hyaline Casts Moderate /HPF Urine Waxy Casts Occasional /HPF Urine Mucus Slight /LPF Urine Opiates Screen Pos (NEG) Urine Methadone Screen Neg (NEG) Urine Barbiturates Neg (NEG) Urine Phencyclidine Screen Neg (NEG) Urine Amphetamine/Methamphetamine Neg (NEG) Urine Benzodiazepines Screen Pos (NEG) Urine Cocaine Screen Neg (NEG) Urine Cannabinoids Screen Pos (NEG) Urine Ethyl Alcohol Neg (NEG) Test 11/02/20 21:15 11/03/20 08:50 Lactic Acid Level 13.3 mmol/L (0.4-2.0) O2 Saturation 96 % (92-99) Arterial Blood pH 7.42 (7.35-7.45) Arterial Blood pCO2 at Patient Temp 36 mmHg (35-46) Arterial Blood pO2 at Patient Temp 98 mmHg (65-108) Arterial Blood HCO3 23 mmol/L (21-28) Arterial Blood Base Excess -2 mmol/L (-3-3) FiO2 60% vent Medications Active Scripts Medications Dose Route/Sig Max Daily Dose Days Date Category Ibuprofen 800 Mg Tablet 800 Mg PO PRN Q6HRS PRN 11/01/20 Reported Impression . IMPRESSION: 1. Acute hypoxemic respiratory failure, multifactorial, expected status post laparoscopic cholecystectomy. 2. Severe metabolic acidosis, suspect combination of renal failure and sepsis. 3. Acalculous cholecystitis, status post cholecystectomy. 4. Elevated liver chemistries. Etiology unclear, may be related to sepsis. 5. Small bilateral effusions. 6. Morbid obesity. 7. Acute renal failure. 8. Hyponatremia. Plan . PLAN: continue current vent support Follow CXR/ABG-- reduce Fi02 to 50% and PEEP to 5 Follow nephrology recs -- considering CRRT Continue Vasopressors to Keep MAP above 65-- on levo and vaso Follow cardiology recs Continue ABX per ID: Marlena/Zyvox/Zosyn Follow cultures Covid -19 negative Follow Surgery recs S/P choly on 11/02 Follow GI recs DVT/GI PPX D/W RN and RT Critical Care Time 0900-0930AM ALLISON YARBROUGH MD Nov 03, 2020 10:22
--- NOTE | 2020-11-03 10:23 | PDOC ---
Date of Service: DATE: 11/03/20 TIME: 10:16 Objective: Objective: D/w nurse - others wondering about E coli since symptoms began after eating a burger. D/w Dr. Saenz/[facility]. Vital Signs: Vital Signs Date Time Temp Pulse Resp B/P (MAP) Pulse Ox O2 Delivery O2 Flow Rate FiO2 11/03/20 08:29 94 Ventilator 11/03/20 08:00 99.9 91 19 99.9 11/02/20 15:11 2.0 Labs: Laboratory Tests Test 11/02/20 12:35 11/02/20 12:57 11/02/20 13:00 11/02/20 13:15 Bedside Hemoglobin (Calculated) 9.5 g/dL Bedside Hematocrit 28 % Bedside Arterial pH 7.17 7.16 Arterial Blood pH (Temp corrected) 7.17 Bedside Arterial pCO2 32 mmHg 45 mmHg Arterial Blood pCO2 (Temp correct) 32 mmHg Bedside Arterial pO2 203 mmHg 184 mmHg Arterial Blood pO2 (Temp corrected) 203 mmHg mmHg Bedside Arterial HCO3 12 mmol/L Bedside Arterial Total CO2 13 mmol/L Arterial Bld O2 Saturation (Measur) 99 % Bedside Arterial Blood Base Excess -17 mmol/L Bedside FiO2 21.0 100 Bedside Sodium 129 mmol/L Bedside Potassium 4.4 mmol/L Glucose Level 86 mg/dL 78 mg/dL Bedside Ionized Calcium (Ashley) 1.01 mmol/L White Blood Count 14.3 x10^3/uL Red Blood Count 3.24 x10^6/uL Hemoglobin 9.2 g/dL Hematocrit 28.3 % Mean Corpuscular Volume 87 fL Mean Corpuscular Hemoglobin 28 pg Mean Corpuscular Hemoglobin Concent 33 g/dL Red Cell Distribution Width 14.0 % Platelet Count 168 x10^3/uL Prothrombin Time 19.6 SEC Prothromb Time International Ratio 1.7 Activated Partial Thromboplast Time 29 SEC Sodium Level 134 mmol/L Potassium Level 5.1 mmol/L Chloride Level 97 mmol/L Carbon Dioxide Level 16 mmol/L Anion Gap 21 Blood Urea Nitrogen 64 mg/dL Creatinine 2.5 mg/dL Estimated GFR (Cockcroft-Gault) 23.5 BUN/Creatinine Ratio 26 Calcium Level 7.1 mg/dL Iron Level 61 ug/dL Total Iron Binding Capacity 224 ug/dL Iron Saturation 27 % Total Bilirubin 1.7 mg/dL Aspartate Amino Transf (AST/SGOT) 388 U/L Alanine Aminotransferase (ALT/SGPT) 338 U/L Alkaline Phosphatase 184 U/L Total Protein 5.0 g/dL Albumin 2.0 g/dL Albumin/Globulin Ratio 0.7 Hepatitis A IgM Antibody Nonreactive Hepatitis B Surface Antigen Nonreactive Hepatitis B Core IgM Antibody Nonreactive Hepatitis C IgG Antibody Nonreactive Arterial Blood HCO3 16 mmol/L Bedside Arterial Blood O2 Sat 99 % Test 11/02/20 14:22 11/02/20 16:30 11/02/20 17:41 11/02/20 18:49 O2 Saturation 98 % 99 % Arterial Blood pH 7.18 7.21 Arterial Blood pH (Temp corrected) 7.19 7.22 Arterial Blood pCO2 at Patient Temp 36 mmHg 28 mmHg Arterial Blood pCO2 (Temp correct) 35 mmHg 27 mmHg Arterial Blood pO2 at Patient Temp 149 mmHg 193 mmHg Arterial Blood pO2 (Temp corrected) 144 mmHg 189 mmHg Arterial Blood HCO3 13 mmol/L 11 mmol/L Arterial Blood Base Excess -14 mmol/L -16 mmol/L FiO2 100 100 Lactic Acid Level 11.8 mmol/L Urine Collection Type Unknown Urine Color Radha Urine Clarity Cloudy Urine pH 5.0 Urine Specific [place] 1.020 Urine Protein 30 mg/dL Urine Glucose (UA) Negative mg/dL Urine Ketones (Stick) Negative mg/dL Urine Blood Small Urine Nitrite Negative Urine Bilirubin Negative Urine Urobilinogen Dipstick 1.0 mg/dL Urine Leukocyte Esterase Negative Urine RBC 6-10 /HPF Urine WBC 1-4 /HPF Urine Transitional Epithelial Cells Few /LPF Urine Amorphous Sediment Present /HPF Urine Bacteria 0 /HPF Urine Hyaline Casts Moderate /HPF Urine Waxy Casts Occasional /HPF Urine Mucus Slight /LPF Urine Opiates Screen Pos Urine Methadone Screen Neg Urine Barbiturates Neg Urine Phencyclidine Screen Neg Urine Amphetamine/Methamphetamine Neg Urine Benzodiazepines Screen Pos Urine Cocaine Screen Neg Urine Cannabinoids Screen Pos Urine Ethyl Alcohol Neg Test 11/02/20 21:15 11/03/20 08:50 Lactic Acid Level 13.3 mmol/L O2 Saturation 96 % Arterial Blood pH 7.42 Arterial Blood pCO2 at Patient Temp 36 mmHg Arterial Blood pO2 at Patient Temp 98 mmHg Arterial Blood HCO3 23 mmol/L Arterial Blood Base Excess -2 mmol/L FiO2 60% vent Imaging: CXR 11/03 IMPRESSION: 1. Stable life support devices. 2. Slightly improved patchy bilateral consolidations. PE: GEN: intubated LUNGS: vent/some diminished HEART: +murm ABD: quiet EXTREM: cool NEURO/PSYCH: sedated A/P: Abd pain, n/v S/p cholecystectomy 11/02 - cholelithiasis, normal IOC - resp failure and hypotension post op Sepsis - source unclear - lactic acidosis, anemia, coagulopathy, SHINE, elevated LFTs (viral Hep panel negative - other labs pending) COVID negative 11/01 +cannabinoids -- Will review w/ Dr. Garza. Justicifation of Admission Dx: Justifications for Admission: Justification of Admission Dx: Yes JACKELINE CASTILLO Nov 03, 2020 10:23
[2020-11-03 10:34] LABS: BASO % 0 % (0-3); EOS # 0.3 x10^3/uL (0.0-0.7); EOS % 2 % (0-3); HEMATOCRIT 30.5 % (36.0-47.0); HEMOGLOBIN 10.1 g/dL (12.0-15.5); LYMPH % 8 % (24-48); MEAN CORPUSCULAR HEMOGLOBIN 28 pg (25-35); MEAN CORPUSCULAR HGB CONC 33 g/dL (31-37); MEAN CORPUSCULAR VOLUME 85 fL (79-100); MONO # 0.8 x10^3/uL (0.0-1.1); MONO % 7 % (0-9); NEUT # 10.3 x10^3/uL (1.8-7.7); NEUT % 83 % (31-73); PLATELET COUNT 99 x10^3/uL (140-400); RED BLOOD COUNT 3.58 x10^6/uL (3.50-5.40); RED CELL DISTRIBUTION WIDTH 13.8 % (11.5-14.5); WHITE BLOOD COUNT 12.4 x10^3/uL (4.0-11.0)
[2020-11-03] MEDS ORDERED: LIDOCAINE WITH 8.4% SOD BICARB 3 ML DISP.SYRIN. ONE (11:00)
[2020-11-03 11:04] LABS: ALBUMIN 2.1 g/dL (3.4-5.0); C-REACTIVE PROTEIN 90.4 mg/L (0-3.3); DIRECT BILIRUBIN 1.1 mg/dL (0.0-0.2); TOTAL BILIRUBIN 2.2 mg/dL (0.2-1.0); TOTAL PROTEIN 5.6 g/dL (6.4-8.2)
--- NOTE | 2020-11-03 11:29 | PDOC ---
RADHA LYNN PSYCHIATRIC REGISTERED NURSE 11/03/20 1129: SURGICAL PROGRESS NOTE DATE: 11/03/20 TIME: 11:28 Subjective vent pressor support Vital Signs Vital Signs Date Time Temp Pulse Resp B/P (MAP) Pulse Ox O2 Delivery O2 Flow Rate FiO2 11/03/20 08:29 94 Ventilator 11/03/20 08:00 99.9 91 19 99.9 11/02/20 15:11 2.0 I&O Intake and Output 11/03/20 07:00 Intake Total 2937 ml Output Total 427 ml Balance 2510 ml IV Total 2937 ml Output Urine Total 317 ml Drainage Total 110 ml General: Other (sedated ) Abdomen: Soft, Other (drain bloody) Labs Laboratory Tests Test 11/01/20 21:12 11/01/20 22:53 11/02/20 10:05 11/02/20 12:35 White Blood Count 12.4 x10^3/uL (4.0-11.0) 15.0 x10^3/uL (4.0-11.0) Red Blood Count 3.65 x10^6/uL (3.50-5.40) 4.01 x10^6/uL (3.50-5.40) Hemoglobin 10.3 g/dL (12.0-15.5) 11.4 g/dL (12.0-15.5) Hematocrit 30.8 % (36.0-47.0) 35.7 % (36.0-47.0) Mean Corpuscular Volume 85 fL (79-100) 89 fL (79-100) Mean Corpuscular Hemoglobin 28 pg (25-35) 29 pg (25-35) Mean Corpuscular Hemoglobin Concent 34 g/dL (31-37) 32 g/dL (31-37) Red Cell Distribution Width 13.7 % (11.5-14.5) 14.2 % (11.5-14.5) Platelet Count 246 x10^3/uL (140-400) 191 x10^3/uL (140-400) Neutrophils (%) (Auto) 70 % (31-73) 75 % (31-73) Lymphocytes (%) (Auto) 21 % (24-48) 16 % (24-48) Monocytes (%) (Auto) 8 % (0-9) 9 % (0-9) Eosinophils (%) (Auto) 1 % (0-3) 1 % (0-3) Basophils (%) (Auto) 0 % (0-3) 0 % (0-3) Neutrophils # (Auto) 8.7 x10^3/uL (1.8-7.7) 11.2 x10^3/uL (1.8-7.7) Lymphocytes # (Auto) 2.6 x10^3/uL (1.0-4.8) 2.3 x10^3/uL (1.0-4.8) Monocytes # (Auto) 1.0 x10^3/uL (0.0-1.1) 1.4 x10^3/uL (0.0-1.1) Eosinophils # (Auto) 0.1 x10^3/uL (0.0-0.7) 0.1 x10^3/uL (0.0-0.7) Basophils # (Auto) 0.0 x10^3/uL (0.0-0.2) 0.0 x10^3/uL (0.0-0.2) Sodium Level 127 mmol/L (136-145) 129 mmol/L (136-145) Potassium Level 4.2 mmol/L (3.5-5.1) 4.7 mmol/L (3.5-5.1) Chloride Level 94 mmol/L (98-107) 95 mmol/L (98-107) Carbon Dioxide Level 18 mmol/L (21-32) 12 mmol/L (21-32) Anion Gap 15 (6-14) 22 (6-14) Blood Urea Nitrogen 54 mg/dL (7-20) 63 mg/dL (7-20) Creatinine 1.8 mg/dL (0.6-1.0) 2.2 mg/dL (0.6-1.0) Estimated GFR (Cockcroft-Gault) 34.3 27.2 BUN/Creatinine Ratio 30 (6-20) 29 (6-20) Glucose Level 151 mg/dL (70-99) 78 mg/dL (70-99) 86 mg/dL (70-99) Calcium Level 8.4 mg/dL (8.5-10.1) 8.4 mg/dL (8.5-10.1) Magnesium Level 3.1 mg/dL (1.8-2.4) Total Bilirubin 1.0 mg/dL (0.2-1.0) 1.9 mg/dL (0.2-1.0) Aspartate Amino Transf (AST/SGOT) 157 U/L (15-37) 309 U/L (15-37) Alanine Aminotransferase (ALT/SGPT) 177 U/L (14-59) 299 U/L (14-59) Alkaline Phosphatase 231 U/L (46-116) 231 U/L (46-116) Total Protein 6.7 g/dL (6.4-8.2) 7.1 g/dL (6.4-8.2) Albumin 2.5 g/dL (3.4-5.0) 2.5 g/dL (3.4-5.0) Albumin/Globulin Ratio 0.6 (1.0-1.7) 0.5 (1.0-1.7) Lipase 135 U/L (73-393) Ethyl Alcohol Level < 10 mg/dL (0-10) Coronavirus (PCR) Not detected (Not Detected) SARS-CoV-2 Antigen (Rapid) Negative (NEGATIVE) Bedside Hemoglobin (Calculated) 9.5 g/dL (12-15) Bedside Hematocrit 28 % (36-40) Bedside Arterial pH 7.17 (7.35-7.45) Arterial Blood pH (Temp corrected) 7.17 Bedside Arterial pCO2 32 mmHg (35-45) Arterial Blood pCO2 (Temp correct) 32 mmHg Bedside Arterial pO2 203 mmHg (75-100) Arterial Blood pO2 (Temp corrected) 203 mmHg Bedside Arterial HCO3 12 mmol/L (21-28) Bedside Arterial Total CO2 13 mmol/L (21-32) Arterial Bld O2 Saturation (Measur) 99 % (95-99) Bedside Arterial Blood Base Excess -17 mmol/L (0-3) Bedside FiO2 21.0 Bedside Sodium 129 mmol/L (135-145) Bedside Potassium 4.4 mmol/L (3.5-5.0) Bedside Ionized Calcium (Ashley) 1.01 mmol/L (1.13-1.32) Test 11/02/20 12:57 11/02/20 13:00 11/02/20 13:15 1/18/21 14:22 White Blood Count 14.3 x10^3/uL (4.0-11.0) Red Blood Count 3.24 x10^6/uL (3.50-5.40) Hemoglobin 9.2 g/dL (12.0-15.5) Hematocrit 28.3 % (36.0-47.0) Mean Corpuscular Volume 87 fL (79-100) Mean Corpuscular Hemoglobin 28 pg (25-35) Mean Corpuscular Hemoglobin Concent 33 g/dL (31-37) Red Cell Distribution Width 14.0 % (11.5-14.5) Platelet Count 168 x10^3/uL (140-400) Prothrombin Time 19.6 SEC (11.7-14.0) Prothromb Time International Ratio 1.7 (0.8-1.1) Activated Partial Thromboplast Time 29 SEC (24-38) Sodium Level 134 mmol/L (136-145) Potassium Level 5.1 mmol/L (3.5-5.1) Chloride Level 97 mmol/L (98-107) Carbon Dioxide Level 16 mmol/L (21-32) Anion Gap 21 (6-14) Blood Urea Nitrogen 64 mg/dL (7-20) Creatinine 2.5 mg/dL (0.6-1.0) Estimated GFR (Cockcroft-Gault) 23.5 BUN/Creatinine Ratio 26 (6-20) Glucose Level 78 mg/dL (70-99) Calcium Level 7.1 mg/dL (8.5-10.1) Iron Level 61 ug/dL (50-170) Total Iron Binding Capacity 224 ug/dL (250-450) Iron Saturation 27 % (15-34) Total Bilirubin 1.7 mg/dL (0.2-1.0) Aspartate Amino Transf (AST/SGOT) 388 U/L (15-37) Alanine Aminotransferase (ALT/SGPT) 338 U/L (14-59) Alkaline Phosphatase 184 U/L (46-116) Total Protein 5.0 g/dL (6.4-8.2) Albumin 2.0 g/dL (3.4-5.0) Albumin/Globulin Ratio 0.7 (1.0-1.7) Hepatitis A IgM Antibody Nonreactive (Nonreactive) Hepatitis B Surface Antigen Nonreactive (Nonreactive) Hepatitis B Core IgM Antibody Nonreactive (Nonreactive) Hepatitis C IgG Antibody Nonreactive (Nonreactive) Bedside Arterial pH 7.16 (7.35-7.45) Bedside Arterial pCO2 45 mmHg (35-45) Bedside Arterial pO2 184 mmHg (75-100) Arterial Blood pO2 (Temp corrected) mmHg 144 mmHg Arterial Blood HCO3 16 mmol/L (21-28) 13 mmol/L (21-28) Bedside Arterial Blood O2 Sat 99 % (95-99) Bedside FiO2 100 O2 Saturation 98 % (92-99) Arterial Blood pH 7.18 (7.35-7.45) Arterial Blood pH (Temp corrected) 7.19 Arterial Blood pCO2 at Patient Temp 36 mmHg (35-46) Arterial Blood pCO2 (Temp correct) 35 mmHg Arterial Blood pO2 at Patient Temp 149 mmHg (65-108) Arterial Blood Base Excess -14 mmol/L (-3-3) FiO2 100 Test 11/02/20 16:30 11/02/20 17:41 11/02/20 18:49 11/02/20 21:15 Lactic Acid Level 11.8 mmol/L (0.4-2.0) 13.3 mmol/L (0.4-2.0) O2 Saturation 99 % (92-99) Arterial Blood pH 7.21 (7.35-7.45) Arterial Blood pH (Temp corrected) 7.22 Arterial Blood pCO2 at Patient Temp 28 mmHg (35-46) Arterial Blood pCO2 (Temp correct) 27 mmHg Arterial Blood pO2 at Patient Temp 193 mmHg (65-108) Arterial Blood pO2 (Temp corrected) 189 mmHg Arterial Blood HCO3 11 mmol/L (21-28) Arterial Blood Base Excess -16 mmol/L (-3-3) FiO2 100 Urine Collection Type Unknown Urine Color Radha Urine Clarity Cloudy Urine pH 5.0 (<5.0-8.0) Urine Specific [place] 1.020 (1.000-1.030) Urine Protein 30 mg/dL (NEG-TRACE) Urine Glucose (UA) Negative mg/dL (NEG) Urine Ketones (Stick) Negative mg/dL (NEG) Urine Blood Small (NEG) Urine Nitrite Negative (NEG) Urine Bilirubin Negative (NEG) Urine Urobilinogen Dipstick 1.0 mg/dL (0.2 mg/dL) Urine Leukocyte Esterase Negative (NEG) Urine RBC 6-10 /HPF (0-2) Urine WBC 1-4 /HPF (0-4) Urine Transitional Epithelial Cells Few /LPF Urine Amorphous Sediment Present /HPF Urine Bacteria 0 /HPF (0-FEW) Urine Hyaline Casts Moderate /HPF Urine Waxy Casts Occasional /HPF Urine Mucus Slight /LPF Urine Opiates Screen Pos (NEG) Urine Methadone Screen Neg (NEG) Urine Barbiturates Neg (NEG) Urine Phencyclidine Screen Neg (NEG) Urine Amphetamine/Methamphetamine Neg (NEG) Urine Benzodiazepines Screen Pos (NEG) Urine Cocaine Screen Neg (NEG) Urine Cannabinoids Screen Pos (NEG) Urine Ethyl Alcohol Neg (NEG) Test 11/03/20 08:50 11/03/20 09:50 O2 Saturation 96 % (92-99) Arterial Blood pH 7.42 (7.35-7.45) Arterial Blood pCO2 at Patient Temp 36 mmHg (35-46) Arterial Blood pO2 at Patient Temp 98 mmHg (65-108) Arterial Blood HCO3 23 mmol/L (21-28) Arterial Blood Base Excess -2 mmol/L (-3-3) FiO2 60% vent White Blood Count 12.4 x10^3/uL (4.0-11.0) Red Blood Count 3.58 x10^6/uL (3.50-5.40) Hemoglobin 10.1 g/dL (12.0-15.5) Hematocrit 30.5 % (36.0-47.0) Mean Corpuscular Volume 85 fL (79-100) Mean Corpuscular Hemoglobin 28 pg (25-35) Mean Corpuscular Hemoglobin Concent 33 g/dL (31-37) Red Cell Distribution Width 13.8 % (11.5-14.5) Platelet Count 99 x10^3/uL (140-400) Neutrophils (%) (Auto) 83 % (31-73) Lymphocytes (%) (Auto) 8 % (24-48) Monocytes (%) (Auto) 7 % (0-9) Eosinophils (%) (Auto) 2 % (0-3) Basophils (%) (Auto) 0 % (0-3) Neutrophils # (Auto) 10.3 x10^3/uL (1.8-7.7) Lymphocytes # (Auto) 1.0 x10^3/uL (1.0-4.8) Monocytes # (Auto) 0.8 x10^3/uL (0.0-1.1) Eosinophils # (Auto) 0.3 x10^3/uL (0.0-0.7) Basophils # (Auto) 0.0 x10^3/uL (0.0-0.2) Prothrombin Time 26.4 SEC (11.7-14.0) Prothromb Time International Ratio 2.4 (0.8-1.1) Sodium Level 131 mmol/L (136-145) Potassium Level 4.4 mmol/L (3.5-5.1) Chloride Level 92 mmol/L (98-107) Carbon Dioxide Level 25 mmol/L (21-32) Anion Gap 14 (6-14) Blood Urea Nitrogen 78 mg/dL (7-20) Creatinine 2.9 mg/dL (0.6-1.0) Estimated GFR (Cockcroft-Gault) 19.8 Glucose Level 191 mg/dL (70-99) Lactic Acid Level 5.1 mmol/L (0.4-2.0) Calcium Level 6.2 mg/dL (8.5-10.1) Laboratory Tests Test 11/02/20 12:35 11/02/20 12:57 11/02/20 13:00 11/02/20 13:15 Bedside Hemoglobin (Calculated) 9.5 g/dL (12-15) Bedside Hematocrit 28 % (36-40) Bedside Arterial pH 7.17 (7.35-7.45) 7.16 (7.35-7.45) Arterial Blood pH (Temp corrected) 7.17 Bedside Arterial pCO2 32 mmHg (35-45) 45 mmHg (35-45) Arterial Blood pCO2 (Temp correct) 32 mmHg Bedside Arterial pO2 203 mmHg (75-100) 184 mmHg (75-100) Arterial Blood pO2 (Temp corrected) 203 mmHg mmHg Bedside Arterial HCO3 12 mmol/L (21-28) Bedside Arterial Total CO2 13 mmol/L (21-32) Arterial Bld O2 Saturation (Measur) 99 % (95-99) Bedside Arterial Blood Base Excess -17 mmol/L (0-3) Bedside FiO2 21.0 100 Bedside Sodium 129 mmol/L (135-145) Bedside Potassium 4.4 mmol/L (3.5-5.0) Glucose Level 86 mg/dL (70-99) 78 mg/dL (70-99) Bedside Ionized Calcium (Ashley) 1.01 mmol/L (1.13-1.32) White Blood Count 14.3 x10^3/uL (4.0-11.0) Red Blood Count 3.24 x10^6/uL (3.50-5.40) Hemoglobin 9.2 g/dL (12.0-15.5) Hematocrit 28.3 % (36.0-47.0) Mean Corpuscular Volume 87 fL (79-100) Mean Corpuscular Hemoglobin 28 pg (25-35) Mean Corpuscular Hemoglobin Concent 33 g/dL (31-37) Red Cell Distribution Width 14.0 % (11.5-14.5) Platelet Count 168 x10^3/uL (140-400) Prothrombin Time 19.6 SEC (11.7-14.0) Prothromb Time International Ratio 1.7 (0.8-1.1) Activated Partial Thromboplast Time 29 SEC (24-38) Sodium Level 134 mmol/L (136-145) Potassium Level 5.1 mmol/L (3.5-5.1) Chloride Level 97 mmol/L (98-107) Carbon Dioxide Level 16 mmol/L (21-32) Anion Gap 21 (6-14) Blood Urea Nitrogen 64 mg/dL (7-20) Creatinine 2.5 mg/dL (0.6-1.0) Estimated GFR (Cockcroft-Gault) 23.5 BUN/Creatinine Ratio 26 (6-20) Calcium Level 7.1 mg/dL (8.5-10.1) Iron Level 61 ug/dL (50-170) Total Iron Binding Capacity 224 ug/dL (250-450) Iron Saturation 27 % (15-34) Total Bilirubin 1.7 mg/dL (0.2-1.0) Aspartate Amino Transf (AST/SGOT) 388 U/L (15-37) Alanine Aminotransferase (ALT/SGPT) 338 U/L (14-59) Alkaline Phosphatase 184 U/L (46-116) Total Protein 5.0 g/dL (6.4-8.2) Albumin 2.0 g/dL (3.4-5.0) Albumin/Globulin Ratio 0.7 (1.0-1.7) Hepatitis A IgM Antibody Nonreactive (Nonreactive) Hepatitis B Surface Antigen Nonreactive (Nonreactive) Hepatitis B Core IgM Antibody Nonreactive (Nonreactive) Hepatitis C IgG Antibody Nonreactive (Nonreactive) Arterial Blood HCO3 16 mmol/L (21-28) Bedside Arterial Blood O2 Sat 99 % (95-99) Test 11/02/20 14:22 11/02/20 16:30 11/02/20 17:41 11/02/20 18:49 O2 Saturation 98 % (92-99) 99 % (92-99) Arterial Blood pH 7.18 (7.35-7.45) 7.21 (7.35-7.45) Arterial Blood pH (Temp corrected) 7.19 7.22 Arterial Blood pCO2 at Patient Temp 36 mmHg (35-46) 28 mmHg (35-46) Arterial Blood pCO2 (Temp correct) 35 mmHg 27 mmHg Arterial Blood pO2 at Patient Temp 149 mmHg (65-108) 193 mmHg (65-108) Arterial Blood pO2 (Temp corrected) 144 mmHg 189 mmHg Arterial Blood HCO3 13 mmol/L (21-28) 11 mmol/L (21-28) Arterial Blood Base Excess -14 mmol/L (-3-3) -16 mmol/L (-3-3) FiO2 100 100 Lactic Acid Level 11.8 mmol/L (0.4-2.0) Urine Collection Type Unknown Urine Color Radha Urine Clarity Cloudy Urine pH 5.0 (<5.0-8.0) Urine Specific [place] 1.020 (1.000-1.030) Urine Protein 30 mg/dL (NEG-TRACE) Urine Glucose (UA) Negative mg/dL (NEG) Urine Ketones (Stick) Negative mg/dL (NEG) Urine Blood Small (NEG) Urine Nitrite Negative (NEG) Urine Bilirubin Negative (NEG) Urine Urobilinogen Dipstick 1.0 mg/dL (0.2 mg/dL) Urine Leukocyte Esterase Negative (NEG) Urine RBC 6-10 /HPF (0-2) Urine WBC 1-4 /HPF (0-4) Urine Transitional Epithelial Cells Few /LPF Urine Amorphous Sediment Present /HPF Urine Bacteria 0 /HPF (0-FEW) Urine Hyaline Casts Moderate /HPF Urine Waxy Casts Occasional /HPF Urine Mucus Slight /LPF Urine Opiates Screen Pos (NEG) Urine Methadone Screen Neg (NEG) Urine Barbiturates Neg (NEG) Urine Phencyclidine Screen Neg (NEG) Urine Amphetamine/Methamphetamine Neg (NEG) Urine Benzodiazepines Screen Pos (NEG) Urine Cocaine Screen Neg (NEG) Urine Cannabinoids Screen Pos (NEG) Urine Ethyl Alcohol Neg (NEG) Test 11/02/20 21:15 11/03/20 08:50 11/03/20 09:50 Lactic Acid Level 13.3 mmol/L (0.4-2.0) 5.1 mmol/L (0.4-2.0) O2 Saturation 96 % (92-99) Arterial Blood pH 7.42 (7.35-7.45) Arterial Blood pCO2 at Patient Temp 36 mmHg (35-46) Arterial Blood pO2 at Patient Temp 98 mmHg (65-108) Arterial Blood HCO3 23 mmol/L (21-28) Arterial Blood Base Excess -2 mmol/L (-3-3) FiO2 60% vent White Blood Count 12.4 x10^3/uL (4.0-11.0) Red Blood Count 3.58 x10^6/uL (3.50-5.40) Hemoglobin 10.1 g/dL (12.0-15.5) Hematocrit 30.5 % (36.0-47.0) Mean Corpuscular Volume 85 fL (79-100) Mean Corpuscular Hemoglobin 28 pg (25-35) Mean Corpuscular Hemoglobin Concent 33 g/dL (31-37) Red Cell Distribution Width 13.8 % (11.5-14.5) Platelet Count 99 x10^3/uL (140-400) Neutrophils (%) (Auto) 83 % (31-73) Lymphocytes (%) (Auto) 8 % (24-48) Monocytes (%) (Auto) 7 % (0-9) Eosinophils (%) (Auto) 2 % (0-3) Basophils (%) (Auto) 0 % (0-3) Neutrophils # (Auto) 10.3 x10^3/uL (1.8-7.7) Lymphocytes # (Auto) 1.0 x10^3/uL (1.0-4.8) Monocytes # (Auto) 0.8 x10^3/uL (0.0-1.1) Eosinophils # (Auto) 0.3 x10^3/uL (0.0-0.7) Basophils # (Auto) 0.0 x10^3/uL (0.0-0.2) Prothrombin Time 26.4 SEC (11.7-14.0) Prothromb Time International Ratio 2.4 (0.8-1.1) Sodium Level 131 mmol/L (136-145) Potassium Level 4.4 mmol/L (3.5-5.1) Chloride Level 92 mmol/L (98-107) Carbon Dioxide Level 25 mmol/L (21-32) Anion Gap 14 (6-14) Blood Urea Nitrogen 78 mg/dL (7-20) Creatinine 2.9 mg/dL (0.6-1.0) Estimated GFR (Cockcroft-Gault) 19.8 Glucose Level 191 mg/dL (70-99) Calcium Level 6.2 mg/dL (8.5-10.1) Problem List Problems Medical Problems: (1) Acute renal failure Status: Acute (2) Cholelithiasis Status: Acute (3) Dehydration Status: Acute (4) Intractable nausea and vomiting Status: Acute (5) Person under investigation for COVID-19 Status: Acute (6) Renal failure Status: Acute (7) Transaminitis Status: Acute Assessment/Plan s/p emily sirs vent support pressors no significant abdominal findings during surgery to explain Justicifation of Admission Dx: Justifications for Admission: Justification of Admission Dx: Yes DEVAN GLORIA MD 11/04/20 1408: SURGICAL PROGRESS NOTE Assessment/Plan Agree with above; note, at surgery no findings of acute cholecystitis, or other abdominal pathology; no inflammation, ischemia etc. Source of illness remains unclear RADHA LYNN APRN Nov 03, 2020 11:29 DEVAN GLORIA MD Nov 04, 2020 14:08
--- NOTE | 2020-11-03 11:34 | PDOC ---
ANA MARÍA NAVARRO ADVICE NURSE 11/03/20 1134: CARDIO Progress Notes Date and Time Date of Service 11/03/20 Time of Evaluation 1130 Subjective Subjective: Other (intubated, sedated ) Vitals Vitals Vital Signs Date Time Temp Pulse Resp B/P (MAP) Pulse Ox O2 Delivery O2 Flow Rate FiO2 11/03/20 08:29 94 Ventilator 11/03/20 08:00 99.9 91 19 99.9 11/02/20 15:11 2.0 Weight Weight [ ] Input and Output Intake and Output Intake and Output 11/03/20 07:00 Intake Total 2937 ml Output Total 427 ml Balance 2510 ml IV Total 2937 ml Output Urine Total 317 ml Drainage Total 110 ml Laboratory Labs Laboratory Tests Test 11/02/20 12:35 11/02/20 12:57 11/02/20 13:00 11/02/20 13:15 Bedside Hemoglobin (Calculated) 9.5 g/dL (12-15) Bedside Hematocrit 28 % (36-40) Bedside Arterial pH 7.17 (7.35-7.45) 7.16 (7.35-7.45) Arterial Blood pH (Temp corrected) 7.17 Bedside Arterial pCO2 32 mmHg (35-45) 45 mmHg (35-45) Arterial Blood pCO2 (Temp correct) 32 mmHg Bedside Arterial pO2 203 mmHg (75-100) 184 mmHg (75-100) Arterial Blood pO2 (Temp corrected) 203 mmHg mmHg Bedside Arterial HCO3 12 mmol/L (21-28) Bedside Arterial Total CO2 13 mmol/L (21-32) Arterial Bld O2 Saturation (Measur) 99 % (95-99) Bedside Arterial Blood Base Excess -17 mmol/L (0-3) Bedside FiO2 21.0 100 Bedside Sodium 129 mmol/L (135-145) Bedside Potassium 4.4 mmol/L (3.5-5.0) Glucose Level 86 mg/dL (70-99) 78 mg/dL (70-99) Bedside Ionized Calcium (Ashley) 1.01 mmol/L (1.13-1.32) White Blood Count 14.3 x10^3/uL (4.0-11.0) Red Blood Count 3.24 x10^6/uL (3.50-5.40) Hemoglobin 9.2 g/dL (12.0-15.5) Hematocrit 28.3 % (36.0-47.0) Mean Corpuscular Volume 87 fL (79-100) Mean Corpuscular Hemoglobin 28 pg (25-35) Mean Corpuscular Hemoglobin Concent 33 g/dL (31-37) Red Cell Distribution Width 14.0 % (11.5-14.5) Platelet Count 168 x10^3/uL (140-400) Prothrombin Time 19.6 SEC (11.7-14.0) Prothromb Time International Ratio 1.7 (0.8-1.1) Activated Partial Thromboplast Time 29 SEC (24-38) Sodium Level 134 mmol/L (136-145) Potassium Level 5.1 mmol/L (3.5-5.1) Chloride Level 97 mmol/L (98-107) Carbon Dioxide Level 16 mmol/L (21-32) Anion Gap 21 (6-14) Blood Urea Nitrogen 64 mg/dL (7-20) Creatinine 2.5 mg/dL (0.6-1.0) Estimated GFR (Cockcroft-Gault) 23.5 BUN/Creatinine Ratio 26 (6-20) Calcium Level 7.1 mg/dL (8.5-10.1) Iron Level 61 ug/dL (50-170) Total Iron Binding Capacity 224 ug/dL (250-450) Iron Saturation 27 % (15-34) Total Bilirubin 1.7 mg/dL (0.2-1.0) Aspartate Amino Transf (AST/SGOT) 388 U/L (15-37) Alanine Aminotransferase (ALT/SGPT) 338 U/L (14-59) Alkaline Phosphatase 184 U/L (46-116) Total Protein 5.0 g/dL (6.4-8.2) Albumin 2.0 g/dL (3.4-5.0) Albumin/Globulin Ratio 0.7 (1.0-1.7) Hepatitis A IgM Antibody Nonreactive (Nonreactive) Hepatitis B Surface Antigen Nonreactive (Nonreactive) Hepatitis B Core IgM Antibody Nonreactive (Nonreactive) Hepatitis C IgG Antibody Nonreactive (Nonreactive) Arterial Blood HCO3 16 mmol/L (21-28) Bedside Arterial Blood O2 Sat 99 % (95-99) Test 11/02/20 14:22 11/02/20 16:30 11/02/20 17:41 11/02/20 18:49 O2 Saturation 98 % (92-99) 99 % (92-99) Arterial Blood pH 7.18 (7.35-7.45) 7.21 (7.35-7.45) Arterial Blood pH (Temp corrected) 7.19 7.22 Arterial Blood pCO2 at Patient Temp 36 mmHg (35-46) 28 mmHg (35-46) Arterial Blood pCO2 (Temp correct) 35 mmHg 27 mmHg Arterial Blood pO2 at Patient Temp 149 mmHg (65-108) 193 mmHg (65-108) Arterial Blood pO2 (Temp corrected) 144 mmHg 189 mmHg Arterial Blood HCO3 13 mmol/L (21-28) 11 mmol/L (21-28) Arterial Blood Base Excess -14 mmol/L (-3-3) -16 mmol/L (-3-3) FiO2 100 100 Lactic Acid Level 11.8 mmol/L (0.4-2.0) Urine Collection Type Unknown Urine Color Radha Urine Clarity Cloudy Urine pH 5.0 (<5.0-8.0) Urine Specific [place] 1.020 (1.000-1.030) Urine Protein 30 mg/dL (NEG-TRACE) Urine Glucose (UA) Negative mg/dL (NEG) Urine Ketones (Stick) Negative mg/dL (NEG) Urine Blood Small (NEG) Urine Nitrite Negative (NEG) Urine Bilirubin Negative (NEG) Urine Urobilinogen Dipstick 1.0 mg/dL (0.2 mg/dL) Urine Leukocyte Esterase Negative (NEG) Urine RBC 6-10 /HPF (0-2) Urine WBC 1-4 /HPF (0-4) Urine Transitional Epithelial Cells Few /LPF Urine Amorphous Sediment Present /HPF Urine Bacteria 0 /HPF (0-FEW) Urine Hyaline Casts Moderate /HPF Urine Waxy Casts Occasional /HPF Urine Mucus Slight /LPF Urine Opiates Screen Pos (NEG) Urine Methadone Screen Neg (NEG) Urine Barbiturates Neg (NEG) Urine Phencyclidine Screen Neg (NEG) Urine Amphetamine/Methamphetamine Neg (NEG) Urine Benzodiazepines Screen Pos (NEG) Urine Cocaine Screen Neg (NEG) Urine Cannabinoids Screen Pos (NEG) Urine Ethyl Alcohol Neg (NEG) Test 11/02/20 21:15 11/03/20 08:50 11/03/20 09:50 Lactic Acid Level 13.3 mmol/L (0.4-2.0) 5.1 mmol/L (0.4-2.0) O2 Saturation 96 % (92-99) Arterial Blood pH 7.42 (7.35-7.45) Arterial Blood pCO2 at Patient Temp 36 mmHg (35-46) Arterial Blood pO2 at Patient Temp 98 mmHg (65-108) Arterial Blood HCO3 23 mmol/L (21-28) Arterial Blood Base Excess -2 mmol/L (-3-3) FiO2 60% vent White Blood Count 12.4 x10^3/uL (4.0-11.0) Red Blood Count 3.58 x10^6/uL (3.50-5.40) Hemoglobin 10.1 g/dL (12.0-15.5) Hematocrit 30.5 % (36.0-47.0) Mean Corpuscular Volume 85 fL (79-100) Mean Corpuscular Hemoglobin 28 pg (25-35) Mean Corpuscular Hemoglobin Concent 33 g/dL (31-37) Red Cell Distribution Width 13.8 % (11.5-14.5) Platelet Count 99 x10^3/uL (140-400) Neutrophils (%) (Auto) 83 % (31-73) Lymphocytes (%) (Auto) 8 % (24-48) Monocytes (%) (Auto) 7 % (0-9) Eosinophils (%) (Auto) 2 % (0-3) Basophils (%) (Auto) 0 % (0-3) Neutrophils # (Auto) 10.3 x10^3/uL (1.8-7.7) Lymphocytes # (Auto) 1.0 x10^3/uL (1.0-4.8) Monocytes # (Auto) 0.8 x10^3/uL (0.0-1.1) Eosinophils # (Auto) 0.3 x10^3/uL (0.0-0.7) Basophils # (Auto) 0.0 x10^3/uL (0.0-0.2) Prothrombin Time 26.4 SEC (11.7-14.0) Prothromb Time International Ratio 2.4 (0.8-1.1) Sodium Level 131 mmol/L (136-145) Potassium Level 4.4 mmol/L (3.5-5.1) Chloride Level 92 mmol/L (98-107) Carbon Dioxide Level 25 mmol/L (21-32) Anion Gap 14 (6-14) Blood Urea Nitrogen 78 mg/dL (7-20) Creatinine 2.9 mg/dL (0.6-1.0) Estimated GFR (Cockcroft-Gault) 19.8 Glucose Level 191 mg/dL (70-99) Calcium Level 6.2 mg/dL (8.5-10.1) Physical Exam HEENT: Neck Supple W Full Motion Chest: Symmetric LUNGS: Other (mechanical vent ) Heart: RRR, other (3/6 systolic murmur ) Abdomen: Other (soft ) Neurology: other (sedated) Assessment Assessment 1. Abdominal pain, cholecystitis; s/p lap emily 2. Leukocytosis, lactic acidosis 3. Probable septic shock; unclear source. remains on pressor support. Cardiogenic less likely 4. Acute respiratory failure; s/p intubation. ? PNA 5. SHINE; Cr ^2.9. CRRT to be initiated 6. Shock liver, coagulopathy; INR 2.4 7. Valvular disease; probable MR 8. Marijuana use Recommendations Continue pressor support Ongoing antibiotics Follow cultures Echo pending Supportive care. Justicifation of Admission Dx: Justifications for Admission: Justification of Admission Dx: Yes FE CARNEY MD 11/03/20 1927: CARDIO Progress Notes Plan Plan Patient seen and examined. Agree with above nurse practitioner note. 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 The CXR is more consistent with infiltrate or hemorrhage rather than fluid. Would favor septic shock as etiology of her liver enzyme elevation and lactic acidosis. continue crrt. Supportive care. ANA MARÍA NAVARRO APRN Nov 03, 2020 11:34 FE CARNEY MD Nov 03, 2020 16:47
[2020-11-03] MEDS ORDERED: LIDOCAINE WITH 8.4% SOD BICARB 3 ML DISP.SYRIN. INJ ONE (11:45)
--- NOTE | 2020-11-03 12:55 | RAD ---
Procedure: 1.Ultrasound-guided placement of right internal jugular temporary dialysis catheter 11/03/2020 10:49 AM 2.. Placement of right radial arterial line Clinical Indication: 1. Renal failure CRRT 2. Sepsis, hypotension, need for intensive hemodynamic monitoring Discussion: The risks and benefits of the procedure were discussed the patient and/or their hotel services sales representative. Informed consent was obtained. A timeout procedure was performed. All elements of maximal sterile barrier technique including the use of a cap, mask, sterile gown, sterile gloves, large sterile sheet, appropriate hand hygiene, and 2% chlorhexidine for cutaneous antisepsis (or acceptable alternative antiseptic per current guidelines) were followed for this procedure. The patient was prepped and draped in the usual sterile fashion. Ultrasound interrogation of the right neck revealed patency and compressibility of the right internal jugular vein. A 21-gauge micropuncture was then used to gain access to this vein under ultrasound guidance. A hard copy ultrasound image was recorded. A guidewire was advanced centrally. 5 [place] sheath was placed. Over a wire following dilatation, a temporary dialysis catheter was advanced centrally. Catheter was found to flush and aspirate normally. Follow-up chest radiograph demonstrates tip in acceptable position. The catheter was secured in place and a sterile dressing was applied. No immediate complications were identified. At the request of the ICU staff, a right radial arterial line was placed with ultrasound guidance, for hemodynamic monitoring. The pre-existing left brachial arterial line had failed according to the patient's nurse. Impression: 1.Successful ultrasound-guided placement of right internal jugular temporary dialysis catheter 2. Placement of a right radial arterial line for hemodynamic monitoring
--- NOTE | 2020-11-03 13:51 | NUR ---
SS following for discharge planning. SS reviewed pt chart and discussed with pt RN. Pt is from home and is currently on the vent at 50%. COVID19 negative. Pt on IV Micafungin, IV Zyvox, and IV Zosyn. Pt had surgery on 11/02/2020. Per RN, pt septic and on pressors. CRRT today. Not stable. Self pay. SS will continue to follow for discharge planning.
[2020-11-03] MEDS: POTASSIUM CHLORIDE 15 MEQ in DIALYSIS SOLUTION BGK 0/2.5 5,000 ML IV SCH ×6 (13:56→23:51)
--- NOTE | 2020-11-03 14:14 | RAD ---
XR CHEST 1V INDICATION: Reason: POST TEMP HD CATH PLACEMENT / Spl. Instructions: / History: . COMPARISON STUDY: 11/03/2020. FINDINGS: Life Support Devices: New right IJ dual-lumen catheter with tip in the lower right atrium. Stable add itional right IJ central venous catheter, endotracheal tube, enteric tube Lungs: Low lung volume. Stable patchy bilateral consolidations. Pleura: Stable pleural spaces. Heart and Mediastinum: Stable cardiomediastinal silhouette and great vessels. IMPRESSION: 1. New right IJ dual-lumen catheter. No pneumothorax. Remaining life support devices are stable. 2. Stable bilateral consolidations. Electronically signed by: Oswaldo Grewal MD (11/03/2020 2:11 PM) [id number]
--- NOTE | 2020-11-03 14:48 | PDOC ---
PROGRESS NOTES Date of Service: DATE: 11/03/20 TIME: 14:42 Chief Complaint Chief Complaint acute hypoxic respiratory failure Bilat infiltrates, acute CHF, due to sepsis r, CV consult sepsis, on zyvox, levaquin, micafungin. severe sepsis with hypotension and shock admit for Symptomatic cholelithiasis and poss cholecystitis SHINE and acute Vasomotor nephropathy Hyponatremia Transaminitis Severe malnutrition in obese, BMI 38 History of Present Illness History of Present Illness Laparoscopic cholecystectomy with intraoperative cholangiogram on 11/02, Vitals Vitals Vital Signs Date Time Temp Pulse Resp B/P (MAP) Pulse Ox O2 Delivery O2 Flow Rate FiO2 11/03/20 13:20 19 98 Ventilator 11/03/20 12:50 2.0 11/03/20 12:30 96 132/78 (96) 11/03/20 09:30 100.0 100.0 Physical Exam Physical Exam GENERAL: Well-developed, well-nourished female. Intubated, sedated. HEENT: Normocephalic, atraumatic. ETT OG tube in place. NECK: Right IJ in place. LUNGS: Clear anteriorly. HEART: S1, S2, systolic murmur at the left sternal border. ABDOMEN: Obese, distended. Laparoscopic incision intact, MATTHEW drain in place. Bowel sounds hypoactive. EXTREMITIES: No edema, no cyanosis. DERMATOLOGIC: Warm, dry. No generalized rash. NEUROLOGIC: Intubated. PSYCHIATRIC: Unable to assess. GENITOURINARY: Soler in place. LINES: Right IJ in place, art line in place. General: Other (sedated ) Heart: Regular rate, Normal S1, Normal S2 Abdomen: Soft, Other (drain bloody) Extremities: No clubbing, No cyanosis Skin: No rashes, No breakdown Labs LABS Laboratory Tests Test 11/02/20 16:30 11/02/20 17:41 11/02/20 18:49 11/02/20 21:15 Lactic Acid Level 11.8 mmol/L (0.4-2.0) 13.3 mmol/L (0.4-2.0) O2 Saturation 99 % (92-99) Arterial Blood pH 7.21 (7.35-7.45) Arterial Blood pH (Temp corrected) 7.22 Arterial Blood pCO2 at Patient Temp 28 mmHg (35-46) Arterial Blood pCO2 (Temp correct) 27 mmHg Arterial Blood pO2 at Patient Temp 193 mmHg (65-108) Arterial Blood pO2 (Temp corrected) 189 mmHg Arterial Blood HCO3 11 mmol/L (21-28) Arterial Blood Base Excess -16 mmol/L (-3-3) FiO2 100 Urine Collection Type Unknown Urine Color Radha Urine Clarity Cloudy Urine pH 5.0 (<5.0-8.0) Urine Specific [place] 1.020 (1.000-1.030) Urine Protein 30 mg/dL (NEG-TRACE) Urine Glucose (UA) Negative mg/dL (NEG) Urine Ketones (Stick) Negative mg/dL (NEG) Urine Blood Small (NEG) Urine Nitrite Negative (NEG) Urine Bilirubin Negative (NEG) Urine Urobilinogen Dipstick 1.0 mg/dL (0.2 mg/dL) Urine Leukocyte Esterase Negative (NEG) Urine RBC 6-10 /HPF (0-2) Urine WBC 1-4 /HPF (0-4) Urine Transitional Epithelial Cells Few /LPF Urine Amorphous Sediment Present /HPF Urine Bacteria 0 /HPF (0-FEW) Urine Hyaline Casts Moderate /HPF Urine Waxy Casts Occasional /HPF Urine Mucus Slight /LPF Urine Opiates Screen Pos (NEG) Urine Methadone Screen Neg (NEG) Urine Barbiturates Neg (NEG) Urine Phencyclidine Screen Neg (NEG) Urine Amphetamine/Methamphetamine Neg (NEG) Urine Benzodiazepines Screen Pos (NEG) Urine Cocaine Screen Neg (NEG) Urine Cannabinoids Screen Pos (NEG) Urine Ethyl Alcohol Neg (NEG) Test 11/03/20 08:50 11/03/20 09:50 11/03/20 13:30 O2 Saturation 96 % (92-99) Arterial Blood pH 7.42 (7.35-7.45) Arterial Blood pCO2 at Patient Temp 36 mmHg (35-46) Arterial Blood pO2 at Patient Temp 98 mmHg (65-108) Arterial Blood HCO3 23 mmol/L (21-28) Arterial Blood Base Excess -2 mmol/L (-3-3) FiO2 60% vent White Blood Count 12.4 x10^3/uL (4.0-11.0) Red Blood Count 3.58 x10^6/uL (3.50-5.40) Hemoglobin 10.1 g/dL (12.0-15.5) Hematocrit 30.5 % (36.0-47.0) Mean Corpuscular Volume 85 fL (79-100) Mean Corpuscular Hemoglobin 28 pg (25-35) Mean Corpuscular Hemoglobin Concent 33 g/dL (31-37) Red Cell Distribution Width 13.8 % (11.5-14.5) Platelet Count 99 x10^3/uL (140-400) Neutrophils (%) (Auto) 83 % (31-73) Lymphocytes (%) (Auto) 8 % (24-48) Monocytes (%) (Auto) 7 % (0-9) Eosinophils (%) (Auto) 2 % (0-3) Basophils (%) (Auto) 0 % (0-3) Neutrophils # (Auto) 10.3 x10^3/uL (1.8-7.7) Lymphocytes # (Auto) 1.0 x10^3/uL (1.0-4.8) Monocytes # (Auto) 0.8 x10^3/uL (0.0-1.1) Eosinophils # (Auto) 0.3 x10^3/uL (0.0-0.7) Basophils # (Auto) 0.0 x10^3/uL (0.0-0.2) Prothrombin Time 26.4 SEC (11.7-14.0) Prothromb Time International Ratio 2.4 (0.8-1.1) Sodium Level 131 mmol/L (136-145) Potassium Level 4.4 mmol/L (3.5-5.1) Chloride Level 92 mmol/L (98-107) Carbon Dioxide Level 25 mmol/L (21-32) Anion Gap 14 (6-14) Blood Urea Nitrogen 78 mg/dL (7-20) Creatinine 2.9 mg/dL (0.6-1.0) Estimated GFR (Cockcroft-Gault) 19.8 Glucose Level 191 mg/dL (70-99) Lactic Acid Level 5.1 mmol/L (0.4-2.0) 4.5 mmol/L (0.4-2.0) Calcium Level 6.2 mg/dL (8.5-10.1) Total Bilirubin 2.2 mg/dL (0.2-1.0) Direct Bilirubin 1.1 mg/dL (0.0-0.2) Aspartate Amino Transf (AST/SGOT) 6839 U/L (15-37) Alanine Aminotransferase (ALT/SGPT) 3927 U/L (14-59) Alkaline Phosphatase 228 U/L (46-116) C-Reactive Protein, Quantitative 90.4 mg/L (0-3.3) Total Protein 5.6 g/dL (6.4-8.2) Albumin 2.1 g/dL (3.4-5.0) Assessment and Plan Assessmemt and Plan > 35 minutes, 2 visits ICU care Problems Medical Problems: (1) Acute renal failure Status: Acute (2) Cholelithiasis Status: Acute (3) Dehydration Status: Acute (4) Intractable nausea and vomiting Status: Acute (5) Person under investigation for COVID-19 Status: Acute (6) Renal failure Status: Acute (7) Transaminitis Status: Acute Comment Review of Relevant I have reviewed the following items jose a (where applicable) has been applied. Labs Laboratory Tests Test 11/01/20 21:12 11/01/20 22:53 11/02/20 10:05 11/02/20 12:35 White Blood Count 12.4 x10^3/uL (4.0-11.0) 15.0 x10^3/uL (4.0-11.0) Red Blood Count 3.65 x10^6/uL (3.50-5.40) 4.01 x10^6/uL (3.50-5.40) Hemoglobin 10.3 g/dL (12.0-15.5) 11.4 g/dL (12.0-15.5) Hematocrit 30.8 % (36.0-47.0) 35.7 % (36.0-47.0) Mean Corpuscular Volume 85 fL (79-100) 89 fL (79-100) Mean Corpuscular Hemoglobin 28 pg (25-35) 29 pg (25-35) Mean Corpuscular Hemoglobin Concent 34 g/dL (31-37) 32 g/dL (31-37) Red Cell Distribution Width 13.7 % (11.5-14.5) 14.2 % (11.5-14.5) Platelet Count 246 x10^3/uL (140-400) 191 x10^3/uL (140-400) Neutrophils (%) (Auto) 70 % (31-73) 75 % (31-73) Lymphocytes (%) (Auto) 21 % (24-48) 16 % (24-48) Monocytes (%) (Auto) 8 % (0-9) 9 % (0-9) Eosinophils (%) (Auto) 1 % (0-3) 1 % (0-3) Basophils (%) (Auto) 0 % (0-3) 0 % (0-3) Neutrophils # (Auto) 8.7 x10^3/uL (1.8-7.7) 11.2 x10^3/uL (1.8-7.7) Lymphocytes # (Auto) 2.6 x10^3/uL (1.0-4.8) 2.3 x10^3/uL (1.0-4.8) Monocytes # (Auto) 1.0 x10^3/uL (0.0-1.1) 1.4 x10^3/uL (0.0-1.1) Eosinophils # (Auto) 0.1 x10^3/uL (0.0-0.7) 0.1 x10^3/uL (0.0-0.7) Basophils # (Auto) 0.0 x10^3/uL (0.0-0.2) 0.0 x10^3/uL (0.0-0.2) Sodium Level 127 mmol/L (136-145) 129 mmol/L (136-145) Potassium Level 4.2 mmol/L (3.5-5.1) 4.7 mmol/L (3.5-5.1) Chloride Level 94 mmol/L (98-107) 95 mmol/L (98-107) Carbon Dioxide Level 18 mmol/L (21-32) 12 mmol/L (21-32) Anion Gap 15 (6-14) 22 (6-14) Blood Urea Nitrogen 54 mg/dL (7-20) 63 mg/dL (7-20) Creatinine 1.8 mg/dL (0.6-1.0) 2.2 mg/dL (0.6-1.0) Estimated GFR (Cockcroft-Gault) 34.3 27.2 BUN/Creatinine Ratio 30 (6-20) 29 (6-20) Glucose Level 151 mg/dL (70-99) 78 mg/dL (70-99) 86 mg/dL (70-99) Calcium Level 8.4 mg/dL (8.5-10.1) 8.4 mg/dL (8.5-10.1) Magnesium Level 3.1 mg/dL (1.8-2.4) Total Bilirubin 1.0 mg/dL (0.2-1.0) 1.9 mg/dL (0.2-1.0) Aspartate Amino Transf (AST/SGOT) 157 U/L (15-37) 309 U/L (15-37) Alanine Aminotransferase (ALT/SGPT) 177 U/L (14-59) 299 U/L (14-59) Alkaline Phosphatase 231 U/L (46-116) 231 U/L (46-116) Total Protein 6.7 g/dL (6.4-8.2) 7.1 g/dL (6.4-8.2) Albumin 2.5 g/dL (3.4-5.0) 2.5 g/dL (3.4-5.0) Albumin/Globulin Ratio 0.6 (1.0-1.7) 0.5 (1.0-1.7) Lipase 135 U/L (73-393) Ethyl Alcohol Level < 10 mg/dL (0-10) Coronavirus (PCR) Not detected (Not Detected) SARS-CoV-2 Antigen (Rapid) Negative (NEGATIVE) Bedside Hemoglobin (Calculated) 9.5 g/dL (12-15) Bedside Hematocrit 28 % (36-40) Bedside Arterial pH 7.17 (7.35-7.45) Arterial Blood pH (Temp corrected) 7.17 Bedside Arterial pCO2 32 mmHg (35-45) Arterial Blood pCO2 (Temp correct) 32 mmHg Bedside Arterial pO2 203 mmHg (75-100) Arterial Blood pO2 (Temp corrected) 203 mmHg Bedside Arterial HCO3 12 mmol/L (21-28) Bedside Arterial Total CO2 13 mmol/L (21-32) Arterial Bld O2 Saturation (Measur) 99 % (95-99) Bedside Arterial Blood Base Excess -17 mmol/L (0-3) Bedside FiO2 21.0 Bedside Sodium 129 mmol/L (135-145) Bedside Potassium 4.4 mmol/L (3.5-5.0) Bedside Ionized Calcium (Ashley) 1.01 mmol/L (1.13-1.32) Test 11/02/20 12:57 11/02/20 13:00 11/02/20 13:15 11/02/20 14:22 White Blood Count 14.3 x10^3/uL (4.0-11.0) Red Blood Count 3.24 x10^6/uL (3.50-5.40) Hemoglobin 9.2 g/dL (12.0-15.5) Hematocrit 28.3 % (36.0-47.0) Mean Corpuscular Volume 87 fL (79-100) Mean Corpuscular Hemoglobin 28 pg (25-35) Mean Corpuscular Hemoglobin Concent 33 g/dL (31-37) Red Cell Distribution Width 14.0 % (11.5-14.5) Platelet Count 168 x10^3/uL (140-400) Prothrombin Time 19.6 SEC (11.7-14.0) Prothromb Time International Ratio 1.7 (0.8-1.1) Activated Partial Thromboplast Time 29 SEC (24-38) Sodium Level 134 mmol/L (136-145) Potassium Level 5.1 mmol/L (3.5-5.1) Chloride Level 97 mmol/L (98-107) Carbon Dioxide Level 16 mmol/L (21-32) Anion Gap 21 (6-14) Blood Urea Nitrogen 64 mg/dL (7-20) Creatinine 2.5 mg/dL (0.6-1.0) Estimated GFR (Cockcroft-Gault) 23.5 BUN/Creatinine Ratio 26 (6-20) Glucose Level 78 mg/dL (70-99) Calcium Level 7.1 mg/dL (8.5-10.1) Iron Level 61 ug/dL (50-170) Total Iron Binding Capacity 224 ug/dL (250-450) Iron Saturation 27 % (15-34) Total Bilirubin 1.7 mg/dL (0.2-1.0) Aspartate Amino Transf (AST/SGOT) 388 U/L (15-37) Alanine Aminotransferase (ALT/SGPT) 338 U/L (14-59) Alkaline Phosphatase 184 U/L (46-116) Total Protein 5.0 g/dL (6.4-8.2) Albumin 2.0 g/dL (3.4-5.0) Albumin/Globulin Ratio 0.7 (1.0-1.7) Hepatitis A IgM Antibody Nonreactive (Nonreactive) Hepatitis B Surface Antigen Nonreactive (Nonreactive) Hepatitis B Core IgM Antibody Nonreactive (Nonreactive) Hepatitis C IgG Antibody Nonreactive (Nonreactive) Bedside Arterial pH 7.16 (7.35-7.45) Bedside Arterial pCO2 45 mmHg (35-45) Bedside Arterial pO2 184 mmHg (75-100) Arterial Blood pO2 (Temp corrected) mmHg 144 mmHg Arterial Blood HCO3 16 mmol/L (21-28) 13 mmol/L (21-28) Bedside Arterial Blood O2 Sat 99 % (95-99) Bedside FiO2 100 O2 Saturation 98 % (92-99) Arterial Blood pH 7.18 (7.35-7.45) Arterial Blood pH (Temp corrected) 7.19 Arterial Blood pCO2 at Patient Temp 36 mmHg (35-46) Arterial Blood pCO2 (Temp correct) 35 mmHg Arterial Blood pO2 at Patient Temp 149 mmHg (65-108) Arterial Blood Base Excess -14 mmol/L (-3-3) FiO2 100 Test 11/02/20 16:30 11/02/20 17:41 11/02/20 18:49 11/02/20 21:15 Lactic Acid Level 11.8 mmol/L (0.4-2.0) 13.3 mmol/L (0.4-2.0) O2 Saturation 99 % (92-99) Arterial Blood pH 7.21 (7.35-7.45) Arterial Blood pH (Temp corrected) 7.22 Arterial Blood pCO2 at Patient Temp 28 mmHg (35-46) Arterial Blood pCO2 (Temp correct) 27 mmHg Arterial Blood pO2 at Patient Temp 193 mmHg (65-108) Arterial Blood pO2 (Temp corrected) 189 mmHg Arterial Blood HCO3 11 mmol/L (21-28) Arterial Blood Base Excess -16 mmol/L (-3-3) FiO2 100 Urine Collection Type Unknown Urine Color Radha Urine Clarity Cloudy Urine pH 5.0 (<5.0-8.0) Urine Specific [place] 1.020 (1.000-1.030) Urine Protein 30 mg/dL (NEG-TRACE) Urine Glucose (UA) Negative mg/dL (NEG) Urine Ketones (Stick) Negative mg/dL (NEG) Urine Blood Small (NEG) Urine Nitrite Negative (NEG) Urine Bilirubin Negative (NEG) Urine Urobilinogen Dipstick 1.0 mg/dL (0.2 mg/dL) Urine Leukocyte Esterase Negative (NEG) Urine RBC 6-10 /HPF (0-2) Urine WBC 1-4 /HPF (0-4) Urine Transitional Epithelial Cells Few /LPF Urine Amorphous Sediment Present /HPF Urine Bacteria 0 /HPF (0-FEW) Urine Hyaline Casts Moderate /HPF Urine Waxy Casts Occasional /HPF Urine Mucus Slight /LPF Urine Opiates Screen Pos (NEG) Urine Methadone Screen Neg (NEG) Urine Barbiturates Neg (NEG) Urine Phencyclidine Screen Neg (NEG) Urine Amphetamine/Methamphetamine Neg (NEG) Urine Benzodiazepines Screen Pos (NEG) Urine Cocaine Screen Neg (NEG) Urine Cannabinoids Screen Pos (NEG) Urine Ethyl Alcohol Neg (NEG) Test 11/03/20 08:50 11/03/20 09:50 11/03/20 13:30 O2 Saturation 96 % (92-99) Arterial Blood pH 7.42 (7.35-7.45) Arterial Blood pCO2 at Patient Temp 36 mmHg (35-46) Arterial Blood pO2 at Patient Temp 98 mmHg (65-108) Arterial Blood HCO3 23 mmol/L (21-28) Arterial Blood Base Excess -2 mmol/L (-3-3) FiO2 60% vent White Blood Count 12.4 x10^3/uL (4.0-11.0) Red Blood Count 3.58 x10^6/uL (3.50-5.40) Hemoglobin 10.1 g/dL (12.0-15.5) Hematocrit 30.5 % (36.0-47.0) Mean Corpuscular Volume 85 fL (79-100) Mean Corpuscular Hemoglobin 28 pg (25-35) Mean Corpuscular Hemoglobin Concent 33 g/dL (31-37) Red Cell Distribution Width 13.8 % (11.5-14.5) Platelet Count 99 x10^3/uL (140-400) Neutrophils (%) (Auto) 83 % (31-73) Lymphocytes (%) (Auto) 8 % (24-48) Monocytes (%) (Auto) 7 % (0-9) Eosinophils (%) (Auto) 2 % (0-3) Basophils (%) (Auto) 0 % (0-3) Neutrophils # (Auto) 10.3 x10^3/uL (1.8-7.7) Lymphocytes # (Auto) 1.0 x10^3/uL (1.0-4.8) Monocytes # (Auto) 0.8 x10^3/uL (0.0-1.1) Eosinophils # (Auto) 0.3 x10^3/uL (0.0-0.7) Basophils # (Auto) 0.0 x10^3/uL (0.0-0.2) Prothrombin Time 26.4 SEC (11.7-14.0) Prothromb Time International Ratio 2.4 (0.8-1.1) Sodium Level 131 mmol/L (136-145) Potassium Level 4.4 mmol/L (3.5-5.1) Chloride Level 92 mmol/L (98-107) Carbon Dioxide Level 25 mmol/L (21-32) Anion Gap 14 (6-14) Blood Urea Nitrogen 78 mg/dL (7-20) Creatinine 2.9 mg/dL (0.6-1.0) Estimated GFR (Cockcroft-Gault) 19.8 Glucose Level 191 mg/dL (70-99) Lactic Acid Level 5.1 mmol/L (0.4-2.0) 4.5 mmol/L (0.4-2.0) Calcium Level 6.2 mg/dL (8.5-10.1) Total Bilirubin 2.2 mg/dL (0.2-1.0) Direct Bilirubin 1.1 mg/dL (0.0-0.2) Aspartate Amino Transf (AST/SGOT) 6839 U/L (15-37) Alanine Aminotransferase (ALT/SGPT) 3927 U/L (14-59) Alkaline Phosphatase 228 U/L (46-116) C-Reactive Protein, Quantitative 90.4 mg/L (0-3.3) Total Protein 5.6 g/dL (6.4-8.2) Albumin 2.1 g/dL (3.4-5.0) Laboratory Tests Test 11/02/20 16:30 11/02/20 17:41 11/02/20 18:49 11/02/20 21:15 Lactic Acid Level 11.8 mmol/L (0.4-2.0) 13.3 mmol/L (0.4-2.0) O2 Saturation 99 % (92-99) Arterial Blood pH 7.21 (7.35-7.45) Arterial Blood pH (Temp corrected) 7.22 Arterial Blood pCO2 at Patient Temp 28 mmHg (35-46) Arterial Blood pCO2 (Temp correct) 27 mmHg Arterial Blood pO2 at Patient Temp 193 mmHg (65-108) Arterial Blood pO2 (Temp corrected) 189 mmHg Arterial Blood HCO3 11 mmol/L (21-28) Arterial Blood Base Excess -16 mmol/L (-3-3) FiO2 100 Urine Collection Type Unknown Urine Color Radha Urine Clarity Cloudy Urine pH 5.0 (<5.0-8.0) Urine Specific [place] 1.020 (1.000-1.030) Urine Protein 30 mg/dL (NEG-TRACE) Urine Glucose (UA) Negative mg/dL (NEG) Urine Ketones (Stick) Negative mg/dL (NEG) Urine Blood Small (NEG) Urine Nitrite Negative (NEG) Urine Bilirubin Negative (NEG) Urine Urobilinogen Dipstick 1.0 mg/dL (0.2 mg/dL) Urine Leukocyte Esterase Negative (NEG) Urine RBC 6-10 /HPF (0-2) Urine WBC 1-4 /HPF (0-4) Urine Transitional Epithelial Cells Few /LPF Urine Amorphous Sediment Present /HPF Urine Bacteria 0 /HPF (0-FEW) Urine Hyaline Casts Moderate /HPF Urine Waxy Casts Occasional /HPF Urine Mucus Slight /LPF Urine Opiates Screen Pos (NEG) Urine Methadone Screen Neg (NEG) Urine Barbiturates Neg (NEG) Urine Phencyclidine Screen Neg (NEG) Urine Amphetamine/Methamphetamine Neg (NEG) Urine Benzodiazepines Screen Pos (NEG) Urine Cocaine Screen Neg (NEG) Urine Cannabinoids Screen Pos (NEG) Urine Ethyl Alcohol Neg (NEG) Test 11/03/20 08:50 11/03/20 09:50 11/03/20 13:30 O2 Saturation 96 % (92-99) Arterial Blood pH 7.42 (7.35-7.45) Arterial Blood pCO2 at Patient Temp 36 mmHg (35-46) Arterial Blood pO2 at Patient Temp 98 mmHg (65-108) Arterial Blood HCO3 23 mmol/L (21-28) Arterial Blood Base Excess -2 mmol/L (-3-3) FiO2 60% vent White Blood Count 12.4 x10^3/uL (4.0-11.0) Red Blood Count 3.58 x10^6/uL (3.50-5.40) Hemoglobin 10.1 g/dL (12.0-15.5) Hematocrit 30.5 % (36.0-47.0) Mean Corpuscular Volume 85 fL (79-100) Mean Corpuscular Hemoglobin 28 pg (25-35) Mean Corpuscular Hemoglobin Concent 33 g/dL (31-37) Red Cell Distribution Width 13.8 % (11.5-14.5) Platelet Count 99 x10^3/uL (140-400) Neutrophils (%) (Auto) 83 % (31-73) Lymphocytes (%) (Auto) 8 % (24-48) Monocytes (%) (Auto) 7 % (0-9) Eosinophils (%) (Auto) 2 % (0-3) Basophils (%) (Auto) 0 % (0-3) Neutrophils # (Auto) 10.3 x10^3/uL (1.8-7.7) Lymphocytes # (Auto) 1.0 x10^3/uL (1.0-4.8) Monocytes # (Auto) 0.8 x10^3/uL (0.0-1.1) Eosinophils # (Auto) 0.3 x10^3/uL (0.0-0.7) Basophils # (Auto) 0.0 x10^3/uL (0.0-0.2) Prothrombin Time 26.4 SEC (11.7-14.0) Prothromb Time International Ratio 2.4 (0.8-1.1) Sodium Level 131 mmol/L (136-145) Potassium Level 4.4 mmol/L (3.5-5.1) Chloride Level 92 mmol/L (98-107) Carbon Dioxide Level 25 mmol/L (21-32) Anion Gap 14 (6-14) Blood Urea Nitrogen 78 mg/dL (7-20) Creatinine 2.9 mg/dL (0.6-1.0) Estimated GFR (Cockcroft-Gault) 19.8 Glucose Level 191 mg/dL (70-99) Lactic Acid Level 5.1 mmol/L (0.4-2.0) 4.5 mmol/L (0.4-2.0) Calcium Level 6.2 mg/dL (8.5-10.1) Total Bilirubin 2.2 mg/dL (0.2-1.0) Direct Bilirubin 1.1 mg/dL (0.0-0.2) Aspartate Amino Transf (AST/SGOT) 6839 U/L (15-37) Alanine Aminotransferase (ALT/SGPT) 3927 U/L (14-59) Alkaline Phosphatase 228 U/L (46-116) C-Reactive Protein, Quantitative 90.4 mg/L (0-3.3) Total Protein 5.6 g/dL (6.4-8.2) Albumin 2.1 g/dL (3.4-5.0) Medications Current Medications Sodium Chloride 1,000 ml @ 1,000 mls/hr 1X ONCE IV Last administered on 11/01/20at 21:20; Start 11/01/20 at 21:30; Stop 11/01/20 at 22:29; Status DC Ondansetron HCl (Zofran) 4 mg 1X ONCE IVP Last administered on 11/01/20at 21:18; Start 11/01/20 at 21:30; Stop 11/01/20 at 21:31; Status DC Famotidine (Pepcid Vial) 20 mg 1X ONCE IVP Last administered on 11/01/20at 21:19; Start 11/01/20 at 21:30; Stop 11/01/20 at 21:31; Status DC Fentanyl Citrate (Fentanyl 2ml Vial) 50 mcg PRN Q15MIN PRN IV PAIN GREATER THAN 3/10 Last administered on 11/01/20at 21:19; Start 11/01/20 at 21:00; Stop 11/02/20 at 20:59; Status DC Ondansetron HCl (Zofran) 4 mg PRN Q8HRS PRN IV NAUSEA/VOMITING 1ST CHOICE; Start 11/01/20 at 23:00; Stop 11/02/20 at 22:59; Status DC Fentanyl Citrate (Fentanyl 2ml Vial) 50 mcg PRN Q1HR PRN IV SEVERE PAIN 7-10 Last administered on 11/02/20at 03:47; Start 11/01/20 at 23:00; Stop 11/02/20 at 22:40; Status DC Sodium Chloride 1,000 ml @ 100 mls/hr 1X ONCE IV Last administered on 11/02/20at 01:28; Start 11/01/20 at 23:00; Stop 11/02/20 at 09:03; Status DC Influenza Virus Vaccine Quadrival (Fluzone Quad Syringe) 0.5 ml ONCE ONCE VAX IM ; Start 11/02/20 at 09:00; Stop 11/02/20 at 09:03; Status DC Morphine Sulfate (Morphine Sulfate) 4 mg PRN Q2HR PRN IV SEVERE PAIN 7-10; Start 11/02/20 at 06:45; Stop 11/02/20 at 22:40; Status DC Ondansetron HCl (Zofran) 4 mg PRN Q6HRS PRN IVP NAUSEA/VOMITING 1ST CHOICE; Start 11/02/20 at 07:00 Prochlorperazine Edisylate (Compazine) 10 mg PRN Q6HRS PRN IVP NAUSEA/VOMITING 2ND CHOICE; Start 11/02/20 at 07:00 Zolpidem Tartrate (Ambien) 5 mg PRN QHS PRN PO INSOMNIA, MAY REPEAT IN 1HR; Start 11/02/20 at 07:00 Morphine Sulfate (Morphine Sulfate) 2 mg PRN Q1HR PRN IV MODERATE PAIN 4-6 Last administered on 11/02/20at 08:35; Start 11/02/20 at 07:00; Stop 11/02/20 at 22:40; Status DC Hydromorphone HCl (Dilaudid) 0.4 mg PRN Q1HR PRN IV SEVERE PAIN 7-10; Start 11/02/20 at 07:00; Stop 11/02/20 at 22:41; Status DC Acetaminophen (Tylenol) 650 mg PRN Q6HRS PRN PO Headaches, Temp > 101.5F; Start 11/02/20 at 07:00 Magnesium Hydroxide (Milk Of Magnesia) 2,400 mg PRN Q12HR PRN PO CONSTIPATION 1ST CHOICE; Start 11/02/20 at 07:00; Stop 11/03/20 at 01:25; Status DC Bisacodyl (Dulcolax Supp) 10 mg PRN DAILY PRN DC CONSTIPATION 2ND CHOICE; Start 11/02/20 at 07:00 Heparin Sodium (Porcine) (Heparin Sodium) 5,000 unit Q8HRS SQ ; Start 11/02/20 at 14:00; Stop 11/02/20 at 14:00; Status Cancel Enoxaparin Sodium (Lovenox 40mg Syringe) 40 mg Q24H SQ ; Start 11/02/20 at 08:00; Stop 11/02/20 at 07:41; Status DC Ondansetron HCl (Zofran) 4 mg PRN Q6HRS PRN IVP NAUSEA/VOMITING; Start 11/02/20 at 08:15; Stop 11/03/20 at 08:14; Status DC Fentanyl Citrate (Fentanyl 2ml Vial) 25 mcg PRN Q5MIN PRN IVP MILD PAIN 1-3; Start 11/02/20 at 08:15; Stop 11/02/20 at 22:40; Status DC Fentanyl Citrate (Fentanyl 2ml Vial) 50 mcg PRN Q5MIN PRN IVP MODERATE TO SEVERE PAIN Last administered on 11/02/20at 11:20; Start 11/02/20 at 08:15; Stop 11/02/20 at 22:40; Status DC Morphine Sulfate (Morphine Sulfate) 1 mg PRN Q10MIN PRN IVP SEVERE PAIN 7-10; Start 11/02/20 at 08:15; Stop 11/02/20 at 22:40; Status DC Ringer's Solution 1,000 ml @ 30 mls/hr Q24H IV ; Start 11/02/20 at 08:15; Stop 11/02/20 at 20:14; Status DC Lidocaine HCl (Xylocaine-Mpf 1% 2ml Vial) 2 ml 1X PRN PRN ID IV START; Start 11/02/20 at 08:15; Stop 11/03/20 at 08:14; Status DC Hydromorphone HCl (Dilaudid) 0.5 mg PRN Q10MIN PRN IVP SEV PAIN, Second choice; Start 11/02/20 at 08:15; Stop 11/02/20 at 22:41; Status DC Prochlorperazine Edisylate (Compazine) 5 mg PACU PRN PRN IVP NAUSEA, MRX1; Start 11/02/20 at 08:15; Stop 11/03/20 at 08:14; Status DC Piperacillin Sod/ Tazobactam Sod 3.375 gm/Sodium Chloride 50 ml @ 100 mls/hr Q6HRS IV ; Start 11/02/20 at 12:00; Status UNV Piperacillin Sod/ Tazobactam Sod 2.25 gm/Sodium Chloride 50 ml @ 100 mls/hr Q6HRS IV Last administered on 11/03/20at 12:51; Start 11/02/20 at 10:00 Propofol (Diprivan) 200 mg STK-MED ONCE IV ; Start 11/02/20 at 10:50; Stop 11/02/20 at 10:51; Status DC Lidocaine HCl (Lidocaine Pf 2% Vial) 5 ml STK-MED ONCE .ROUTE ; Start 11/02/20 at 10:50; Stop 11/02/20 at 10:51; Status DC Dexamethasone Sodium Phosphate (Decadron) 20 mg STK-MED ONCE .ROUTE ; Start 11/02/20 at 10:50; Stop 11/02/20 at 10:51; Status DC Ondansetron HCl (Zofran) 4 mg STK-MED ONCE .ROUTE ; Start 11/02/20 at 10:51; Stop 11/02/20 at 10:51; Status DC Rocuronium [place] (Zemuron) 50 mg STK-MED ONCE .ROUTE ; Start 11/02/20 at 10:51; Stop 11/02/20 at 10:52; Status DC Fentanyl Citrate (Fentanyl 2ml Vial) 100 mcg STK-MED ONCE .ROUTE ; Start 11/02/20 at 11:16; Stop 11/02/20 at 11:16; Status DC Iohexol (Omnipaque 300 Mg/ml) 50 ml STK-MED ONCE .ROUTE Last administered on 11/02/20at 12:25; Start 11/02/20 at 11:28; Stop 11/02/20 at 11:28; Status DC Bupivacaine HCl (Sensorcaine Mpf 0.5%) 30 ml STK-MED ONCE .ROUTE Last administered on 11/02/20at 12:25; Start 11/02/20 at 11:28; Stop 11/02/20 at 11:28; Status DC Succinylcholine Chloride (Anectine) 200 mg STK-MED ONCE .ROUTE ; Start 11/02/20 at 11:35; Stop 11/02/20 at 11:35; Status DC Fentanyl Citrate (Fentanyl 2ml Vial) 100 mcg STK-MED ONCE .ROUTE ; Start 11/02/20 at 11:40; Stop 11/02/20 at 11:40; Status DC Norepinephrine Bitartrate 8 mg/ Dextrose 258 ml @ 0 mls/hr CONT PRN IV PER PROTOCOL Last administered on 11/02/20at 15:03; Start 11/02/20 at 12:30; Stop 11/02/20 at 15:03; Status DC Albuterol Sulfate (Ventolin Hfa) 60 puff STK-MED ONCE INH ; Start 11/02/20 at 12:35; Stop 11/02/20 at 12:36; Status DC Cellulose (Surgicel Hemostat 4x8) 1 each STK-MED ONCE .ROUTE Last administered on 11/02/20at 12:46; Start 11/02/20 at 12:38; Stop 11/02/20 at 12:39; Status DC Cellulose (Surgicel Hemostat 4x8) 1 each STK-MED ONCE TP Last administered on 11/02/20at 12:47; Start 11/02/20 at 12:47; Stop 11/02/20 at 12:49; Status DC Cellulose (Surgicel Hemostat 4x8) 1 each STK-MED ONCE .ROUTE Last administered on 11/02/20at 13:01; Start 11/02/20 at 12:56; Stop 11/02/20 at 12:56; Status DC Cellulose (Surgicel Hemostat 4x8) 1 each STK-MED ONCE .ROUTE ; Start 11/02/20 at 12:56; Stop 11/02/20 at 12:56; Status DC Sodium Bicarbonate (Sodium Bicarb Adult 8.4% Syr) 50 meq STK-MED ONCE .ROUTE ; Start 11/02/20 at 13:21; Stop 11/02/20 at 13:21; Status DC Phenylephrine HCl (Orestes-Synephrine Inj) 10 mg STK-MED ONCE .ROUTE ; Start 11/02/20 at 13:37; Stop 11/02/20 at 13:37; Status DC Fentanyl Citrate 30 ml @ 2.5 mls/hr CONT PRN IV SEE PROTOCOL Last administered on 11/03/20at 12:50; Start 11/02/20 at 14:00 Midazolam HCl 100 ml @ 1 mls/hr CONT PRN IV SEE PROTOCOL Last administered on 11/03/20at 03:15; Start 11/02/20 at 14:00 Epinephrine HCl (Adrenalin) 1 mg STK-MED ONCE .ROUTE ; Start 11/02/20 at 14:11; Stop 11/02/20 at 14:11; Status DC Sodium Bicarbonate (Sodium Bicarb Adult 8.4% Syr) 50 meq STK-MED ONCE .ROUTE ; Start 11/02/20 at 14:27; Stop 11/02/20 at 14:28; Status DC Sodium Bicarbonate (Sodium Bicarb Adult 8.4% Syr) 100 meq 1X ONCE IV Last administered on 11/02/20at 14:44; Start 11/02/20 at 14:45; Stop 11/02/20 at 14:46; Status DC Sodium Chloride 1,000 ml @ 1,000 mls/hr 1X ONCE IV Last administered on 11/02/20at 15:00; Start 11/02/20 at 15:00; Stop 11/02/20 at 15:59; Status DC Vasopressin 20 unit/Dextrose 101 ml @ 12 mls/hr CONT PRN IV SEE I/O RECORD Last administered on 11/03/20at 08:51; Start 11/02/20 at 15:15 Linezolid/Dextrose 300 ml @ 300 mls/hr Q12HR IV Last administered on 11/03/20at 10:18; Start 11/02/20 at 17:00 Famotidine (Pepcid Vial) 20 mg QHS IVP Last administered on 11/02/20at 20:59; Start 11/02/20 at 21:00 Furosemide (Lasix) 40 mg 1X ONCE IVP Last administered on 11/02/20at 17:47; Start 11/02/20 at 17:15; Stop 11/02/20 at 17:16; Status DC Sodium Chloride 1,000 ml @ 1,000 mls/hr 1X ONCE IV Last administered on 11/02/20at 17:30; Start 11/02/20 at 17:30; Stop 11/02/20 at 18:29; Status DC Micafungin Sodium 100 mg/Dextrose 100 ml @ 100 mls/hr Q24H IV Last ad ministered on 11/02/20at 17:40; Start 11/02/20 at 18:00 Sodium Bicarbonate 150 meq/Dextrose 1,150 ml @ 150 mls/hr Q7H40M PRN IV IV CONT. Last administered on 11/03/20at 09:33; Start 11/02/20 at 19:00; Stop 11/03/20 at 13:59; Status DC Norepinephrine Bitartrate 8 mg/ Dextrose 258 ml @ 20.259 mls/ hr CONT PRN IV PER PROTOCOL Last administered on 11/03/20at 07:02; Start 11/03/20 at 05:30; Stop 11/03/20 at 07:58; Status DC Perflutren Protein Type A Microsphe (Optison) 0.66 mg STK-MED ONCE IV ; Start 11/03/20 at 07:25; Stop 11/03/20 at 07:25; Status DC Norepinephrine Bitartrate 32 mg/ Dextrose 282 ml @ 5.536 mls/ hr CONT PRN IV PER PROTOCOL Last administered on 11/03/20at 10:18; Start 11/03/20 at 08:00 Levofloxacin/ Dextrose 100 ml @ 100 mls/hr Q24H IV Last administered on 11/03/20at 10:18; Start 11/03/20 at 10:00 Heparin Sodium (Porcine) (Heparin Sodium) 5,000 unit Q8HRS SQ ; Start 11/03/20 at 14:00 Lidocaine HCl (Buffered Lidocaine 1%) 3 ml STK-MED ONCE .ROUTE ; Start 11/03/20 at 11:00; Stop 11/03/20 at 11:00; Status DC Lidocaine HCl (Buffered Lidocaine 1%) 3 ml 1X ONCE INJ Last administered on 11/03/20at 11:54; Start 11/03/20 at 11:45; Stop 11/03/20 at 11:46; Status DC Potassium Chloride 15 meq/ Bicarbonate Dialysis Soln w/ out KCl 5,007.5 ml @ 1,300 mls/ hr Q3H52M IV Last administered on 11/03/20at 13:56; Start 11/03/20 at 14:00 Potassium Chloride 15 meq/ Bicarbonate Dialysis Soln w/ out KCl 5,007.5 ml @ 1,300 mls/ hr Q3H52M IV Last administered on 11/03/20at 13:57; Start 11/03/20 at 14:00 Potassium Chloride 15 meq/ Bicarbonate Dialysis Soln w/ out KCl 5,007.5 ml @ 1,300 mls/ hr Q3H52M IV Last administered on 11/03/20at 13:57; Start 11/03/20 at 14:00 Active Scripts Active Reported Ibuprofen 800 Mg Tablet 800 Mg PO PRN Q6HRS PRN Vitals/I & O Vital Sign - Last 24 Hours 11/02/20 11/02/20 11/02/20 11/02/20 14:45 14:52 14:56 15:10 Temp 97.2 97.2 97.2 97.2 Pulse 94 90 89 Resp 20 20 B/P (MAP) 130/82 (98) 135/85 (102) 135/84 (101) O2 Delivery Ventilator Ventilator Ventilator 11/02/20 11/02/20 11/02/20 11/02/20 15:11 15:30 16:08 16:17 Temp 96.8 96.8 Pulse 96 Resp 20 B/P (MAP) 140/88 (105) Pulse Ox 100 O2 Delivery Ventilator Ventilator Mechanical Ventilator O2 Flow Rate 2.0 11/02/20 11/02/20 11/02/20 11/02/20 16:18 17:39 17:47 18:05 Temp 97.0 97.3 97.0 97.3 Pulse 92 94 Resp 20 28 B/P (MAP) 117/79 (92) 123/82 (96) Pulse Ox 100 97 O2 Delivery Ventilator Ventilator Ventilator 11/02/20 11/02/20 11/02/20 11/02/20 19:00 19:15 19:45 19:51 Temp 97.5 97.5 Pulse 91 Resp 20 B/P (MAP) 111/77 (88) 116/78 (91) Pulse Ox 100 100 O2 Delivery Ventilator Mechanical Ventilator Ventilator 11/02/20 11/02/20 11/02/20 11/02/20 20:00 20:00 20:15 20:45 Temp 97.9 97.9 Pulse 88 Resp 28 B/P (MAP) 99/70 (80) 100/70 (80) 96/70 (79) Pulse Ox 100 O2 Delivery Ventilator 11/02/20 11/02/20 11/02/20 11/02/20 21:00 21:15 21:45 22:00 Temp 98.1 98.6 98.1 98.6 Pulse 87 86 Resp 28 28 B/P (MAP) 96/71 (79) 98/70 (79) 98/68 (78) 94/68 (77) Pulse Ox 100 100 O2 Delivery Ventilator Ventilator 11/02/20 11/02/20 11/02/20 11/02/20 22:15 22:45 23:00 23:15 Temp 98.6 98.6 Pulse 84 Resp 26 B/P (MAP) 96/68 (77) 88/62 (71) 92/64 (73) 94/64 (74) Pulse Ox 100 O2 Delivery Ventilator 11/03/20 11/03/20 11/03/20 11/03/20 00:00 00:00 00:00 00:30 Temp 98.6 98.6 Pulse 84 Resp 25 B/P (MAP) 96/66 (76) Pulse Ox 100 100 O2 Delivery Mechanical Ventilator Ventilator Ventilator 11/03/20 11/03/20 11/03/20 11/03/20 00:45 00:45 01:00 01:18 Temp 98.8 98.8 Pulse 82 Resp 26 B/P (MAP) 88/63 (71) 92/63 (73) Pulse Ox 100 O2 Delivery Ventilator Ventilator Ventilator 11/03/20 11/03/20 11/03/20 11/03/20 02:00 03:00 03:45 04:00 Temp 99.0 99.0 99.0 99.0 Pulse 81 81 Resp 22 B/P (MAP) 91/66 (74) 91/62 (72) Pulse Ox 100 100 O2 Delivery Ventilator Ventilator Mechanical Ventilator 11/03/20 11/03/20 11/03/20 11/03/20 04:00 04:37 05:00 06:00 Temp 99.3 99.3 99.7 99.3 99.3 99.7 Pulse 79 79 79 Resp 20 22 19 B/P (MAP) 90/64 (73) 94/65 (75) Pulse Ox 100 100 100 95 O2 Delivery Ventilator Ventilator Ventilator Ventilator 11/03/20 11/03/20 11/03/20 11/03/20 07:00 08:00 08:00 08:00 Temp 99.7 99.9 99.7 99.9 Pulse 88 91 Resp 19 B/P (MAP) Pulse Ox 100 99 O2 Delivery Ventilator Mechanical Ventilator Ventilator 11/03/20 11/03/20 11/03/20 11/03/20 08:29 09:00 09:30 09:45 Temp 100.0 100.0 Pulse 90 90 90 Resp B/P (MAP) 124/82 (96) 114/88 (97) 94/88 (90) Pulse Ox 94 95 95 95 O2 Delivery Ventilator Ventilator Ventilator Ventilator 11/03/20 11/03/20 11/03/20 11/03/20 10:00 10:30 11:00 11:15 Pulse 90 90 90 92 Resp B/P (MAP) 112/82 (92) 104/88 (93) 116/84 (95) 106/86 (93) Pulse Ox 95 95 95 95 O2 Delivery Ventilator Ventilator Ventilator Ventilator 11/03/20 11/03/20 11/03/20 11/03/20 11:30 12:00 12:00 12:01 Pulse 84 108 Resp B/P (MAP) 82/70 (74) 126/88 (101) Pulse Ox 98 100 O2 Delivery Ventilator Ventilator Mechanical Ventilator 11/03/20 11/03/20 11/03/20 11/03/20 12:09 12:15 12:24 12:30 Pulse 90 96 Resp 19 B/P (MAP) 140/84 (102) 132/78 (96) Pulse Ox 98 98 96 O2 Delivery Ventilator Ventilator Ventilator 11/03/20 11/03/20 12:50 13:20 Resp 19 Pulse Ox 98 98 O2 Delivery Ventilator O2 Flow Rate 2.0 Intake and Output 11/02/20 11/02/20 11/03/20 15:00 23:00 07:00 Intake Total 2937 ml Output Total 40 ml 185 ml 202 ml Balance -40 ml -185 ml 2735 ml Justicifation of Admission Dx: Justifications for Admission: Justification of Admission Dx: Yes BALAJI SIN MD Nov 03, 2020 14:48
--- NOTE | 2020-11-03 15:33 | CARD ---
MR#: [id number] Date of Study: 11/03/2020 Ordering Physician: FE CARNEY, Referring Physician: FE CARNEY, Tech: Pearl Patel [facility] APPROVED REPORT EXAM: Two-dimensional and M-mode echocardiogram with Doppler and color Doppler. Other Information Quality : Technically LimitedHR: 91bpm Rhythm : NSRTechnically limited study due to body habitus, intubated on vent INDICATION Echo Enhancing Agent Indication: Endocardial border delineation Agent/Amount Used: Optison 3mL RISK FACTORS Hypertension Obesity Hyperlipidemia 2D DIMENSIONS RVDd3.7 (2.9-3.5cm)Left Atrium(2D)4.0 (1.6-4.0cm) IVSd1.2 (0.7-1.1cm)Aortic Root(2D)2.4 (2.0-3.7cm) LVDd4.5 (3.9-5.9cm)LVOT Diameter2.3 (1.8-2.4cm) PWd1.2 (0.7-1.1cm)LVDs3.0 (2.5-4.0cm) FS (%) 34.3 %SV60.0 ml LVEF(%)63.4 (>50%) Aortic Valve AoV Peak Eduardo.94.8cm/Wm Peak GR.3.6mmHg Mitral Valve MV E Abdrldis834.5cm/sMV DECEL [id number] MV A Xthtewqh56.9cm/sE/A Ratio1.7 TDI Lateral E' P. V8.88cm/sMedial E' P. V7.02cm/s E/Lateral E'17.4E/Medial E'22.0 Tricuspid Valve TR P. Zdcqvoev601ha/sTR Peak Gr.44mmHg LEFT VENTRICLE The left ventricle is normal size. There is mild concentric left ventricular hypertrophy. Hypokinetic mid to distal myocardial segments, pattern suspicous for Takotsubo's cardiomyopathy. The ejection fr action is estimated at 35-40%. Tissue Doppler imaging reveals moderate left ventricular diastolic dys function. RIGHT VENTRICLE The right ventricle is normal size. There is normal right ventricular wall thickness. The right ventr icular systolic function is normal. ATRIA The left atrium is mildly dilated. The right atrium size is normal. The interatrial septum is intact with no evidence for an atrial septal defect or patent foramen ovale as noted on 2-D or Doppler imagi ng. AORTIC VALVE The aortic valve is normal in structure and function. Doppler and Color Flow revealed no significant aortic regurgitation. There is no significant aortic valvular stenosis. MITRAL VALVE The mitral valve is normal in structure and function. There is no evidence of mitral valve prolapse. There is no mitral valve stenosis. Doppler and Color-flow revealed trace mitral regurgitation. TRICUSPID VALVE The tricuspid valve is normal in structure and function. Doppler and Color Flow revealed mild tricusp id regurgitation. Estimated PAP 50 mmHg. There is no tricuspid valve stenosis. PULMONIC VALVE The pulmonary valve is normal in structure and function. Doppler and Color Flow revealed mild pulmoni c valvular regurgitation. GREAT VESSELS The aortic root is normal in size. The ascending aorta is normal in size. The IVC is dilated and bandar apses <50% with inspiration. PERICARDIAL EFFUSION There is no evidence of significant pericardial effusion. Critical Notification Critical Value: No <Conclusion> Hypokinetic mid to distal myocardial segments, pattern suspicous for Takotsubo's cardiomyopathy. The ejection fraction is estimated at 35-40%. Trace mitral regurgitation. Mild tricuspid regurgitation. Estimated PAP 50 mmHg. There is no evidence of significant pericardial effusion. Signed by : Luis Adler, Electronically Approved : 11/03/2020 15:32:54
[2020-11-03] MEDS: HEPARIN for SUB-Q USE 5,000 UNIT/ML VIAL. SQ SCH ×2 (15:53→23:12)
[2020-11-03 17:31] LABS: BASE EXCESS ABG -1 mmol/L (-3-3); HCO3 ABG 23 mmol/L (21-28); PCO2 ABG 34 mmHg (35-46); PO2 ABG 116 mmHg (65-108); SAT O2 ABG 98 % (92-99)
[2020-11-03 17:38] LABS: FIO2 ABG 50/VENT
[2020-11-03] MEDS: MICAFUNGIN 100 MG in IV DEXTROSE 5% 100ML 100 ML IV SCH (18:15)
--- NOTE | 2020-11-03 18:29 | NUR ---
Pt left brachial arterial line had came out before this RN arrived and anesthesia had been called to get another arterial line started. Pt cuff pressure unable to be obtained, if it read at all it would only be a MAP. Anesthesia came and after several attempts got a left brachial arterial line, it was very positional and the waveform was dampened shortly after insertion. Dr Whitley was in room to insert temporary dialysis catheter and was able to get a right radial arterial line. This line had a great waveform and this RN was actually able to come down on levophed. Pt perfusion to extremities very poor, multiple warm blankets applied throughout shift to extremities. Pt Spo2 does not draft roller picker well at all, fingers, toes and ears attempted. ABG ordered and pO2 >100. Dr Russ ordered troponin, it was ran off 0950 labs and came back critical at 14.96, per Dr Russ repeat to be done and if trending down no need to call back, only call if troponin increasing.
[2020-11-03 20:26] LABS: CALCIUM 6.4 mg/dL (8.5-10.1); CREATININE 2.1 mg/dL (0.6-1.0); GFR 28.7; MAGNESIUM 2.6 mg/dL (1.8-2.4); PHOSPHORUS 3.7 mg/dL (2.6-4.7); POTASSIUM 4.1 mmol/L (3.5-5.1)
[2020-11-03] MEDS: FAMOTIDINE 20 MG/2 ML VIAL IVP SCH (21:03)
[2020-11-04] VITALS (17 sets, daily range): BP systolic 78–117; BP diastolic 42–94
[2020-11-04] MEDS: PIPERACILLIN/TAZOBACTAM 2.25 GM in IV NORMAL SALINE 50ML 50 ML IV SCH ×2 (00:11→05:51)
--- NOTE | 2020-11-04 01:25 | NUR ---
Pt started on CRRT on previous shift at approx 1400. Line flushed at 1900 this shift. At approx 2030, the system began alarming, stating that the TMP was 500. Attempted to flush system again with no change in reading. The charge nurse and another RN on the unit also attempted to flush the system. Call placed to on-call dialysis nurse, Mary Anne, who stated the system sounded as though it clogged off. Mary Anne was able to come in, restring the system; CRRT restarted at 2215. Pt continues to be 1:1 due to CRRT. Pt current temperature 95.4F with Adriel hugger on and CRRT return line warmer in use. This RN at bedside; will continue to monitor.
[2020-11-04] MEDS: VASOPRESSIN 20 UNIT in IV DEXTROSE 5% 100ML 100 ML IV PRN ×2 (03:08→11:31)
[2020-11-04] MEDS: POTASSIUM CHLORIDE 15 MEQ in DIALYSIS SOLUTION BGK 0/2.5 5,000 ML IV SCH ×6 (03:55→08:23)
[2020-11-04] MEDS: NOREPINEPHRINE VIAL 32 MG in IV DEXTROSE 5% 250 ML IV PRN (05:12)
[2020-11-04] MEDS: HEPARIN for SUB-Q USE 5,000 UNIT/ML VIAL. SQ SCH (05:52)
[2020-11-04 06:09] LABS: MAGNESIUM 2.5 mg/dL (1.8-2.4); PHOSPHORUS 4.3 mg/dL (2.6-4.7)
[2020-11-04 06:14] LABS: ALBUMIN 2.1 g/dL (3.4-5.0); ALBUMIN/GLOBULIN RATIO 0.6 (1.0-1.7); CALCIUM 6.6 mg/dL (8.5-10.1); GFR 30.4; POTASSIUM 4.6 mmol/L (3.5-5.1); TOTAL BILIRUBIN 4.1 mg/dL (0.2-1.0); TOTAL PROTEIN 5.6 g/dL (6.4-8.2)
[2020-11-04 06:24] LABS: BASO % 0 % (0-3); EOS # 0.1 x10^3/uL (0.0-0.7); EOS % 1 % (0-3); HEMOGLOBIN 10.9 g/dL (12.0-15.5); LYMPH % 7 % (24-48); MEAN CORPUSCULAR HEMOGLOBIN 29 pg (25-35); MEAN CORPUSCULAR HGB CONC 33 g/dL (31-37); MEAN CORPUSCULAR VOLUME 87 fL (79-100); MONO # 0.9 x10^3/uL (0.0-1.1); MONO % 6 % (0-9); NEUT # 13.3 x10^3/uL (1.8-7.7); NEUT % 87 % (31-73); PLATELET COUNT 83 x10^3/uL (140-400); RED BLOOD COUNT 3.77 x10^6/uL (3.50-5.40); RED CELL DISTRIBUTION WIDTH 14.2 % (11.5-14.5); WHITE BLOOD COUNT 15.3 x10^3/uL (4.0-11.0)
[2020-11-04 07:05] LABS: % BANDS 12 % (0-9); % EOS 1 % (0-5); % LYMPHS 12 % (24-48); % MONOS 5 % (0-10); % SEGS 70 % (35-66); NUCLEATED RBC 12
[2020-11-04 07:07] LABS: ANISOCYTOSIS PRESENT; PLT ESTIMATE DECREASED (ADEQUATE); POLYCHROMASIA PRESENT; SCHISTOCYTES OCC
--- NOTE | 2020-11-04 08:22 | PDOC ---
Infectious Disease Note Subjective: Subjective Patient intubated /sedated Remains on pressure support On Adriel hugger Started on CRRT Vital Signs: Vital Signs Vital Signs Date Time Temp Pulse Resp B/P (MAP) Pulse Ox O2 Delivery O2 Flow Rate FiO2 11/04/20 06:30 91 97/71 (80) 11/04/20 06:00 96.6 25 Ventilator 96.6 11/04/20 01:00 95 11/03/20 12:50 2.0 Physical Exam: PHYSICAL EXAM GENERAL: Well-developed, well-nourished female. Intubated, sedated. HEENT: Normocephalic, atraumatic. ETT OG tube in place. NECK: Right IJ in place. HDC catheter present LUNGS: Clear anteriorly. HEART: S1, S2, systolic murmur at the left sternal border. ABDOMEN: Obese, distended. Laparoscopic incision intact, MATTHEW drain in place. Bowel sounds hypoactive. EXTREMITIES: Edema present, bluish-purple toes and fingers DERMATOLOGIC: No petechial rash NEUROLOGIC: Intubated. PSYCHIATRIC: Unable to assess. GENITOURINARY: Soler in place. LINES: Right IJ in place, art line in place. Medications: Inpatient Meds: Current Medications Medications (Trade) Dose Ordered Sig/Katherine Start Time Stop Time Status Last Admin Dose Admin Acetaminophen (Tylenol) 650 mg PRN Q6HRS PRN 11/02/20 07:00 Albuterol Sulfate (Ventolin Hfa) 60 puff STK-MED ONCE 11/02/20 12:35 11/02/20 12:36 DC Bisacodyl (Dulcolax Supp) 10 mg PRN DAILY PRN 11/02/20 07:00 Bupivacaine HCl (Sensorcaine Mpf 0.5%) 30 ml STK-MED ONCE 11/02/20 11:28 11/02/20 11:28 DC 11/02/20 12:25 30 ML Cellulose (Surgicel Hemostat 4x8) 1 each STK-MED ONCE 11/02/20 12:56 11/02/20 12:56 DC Dexamethasone Sodium Phosphate (Decadron) 20 mg STK-MED ONCE 11/02/20 10:50 11/02/20 10:51 DC Enoxaparin Sodium (Lovenox 40mg Syringe) 40 mg Q24H 11/02/20 08:00 11/02/20 07:41 DC Epinephrine HCl (Adrenalin) 1 mg STK-MED ONCE 11/02/20 14:11 11/02/20 14:11 DC Famotidine (Pepcid Vial) 20 mg QHS 11/02/20 21:00 11/03/20 21:03 20 MG Fentanyl Citrate 30 ml @ 2.5 mls/hr CONT PRN 11/02/20 14:00 11/04/20 00:28 2.5 MLS/HR Fentanyl Citrate (Fentanyl 2ml Vial) 100 mcg STK-MED ONCE 11/02/20 11:40 11/02/20 11:40 DC Furosemide (Lasix) 40 mg 1X ONCE 11/02/20 17:15 11/02/20 17:16 DC 11/02/20 17:47 40 MG Heparin Sodium (Porcine) (Heparin Sodium) 5,000 unit Q8HRS 11/03/20 14:00 11/04/20 05:52 5,000 UNIT Hydromorphone HCl (Dilaudid) 0.5 mg PRN Q10MIN PRN 11/02/20 08:15 11/02/20 22:41 DC Influenza Virus Vaccine Quadrival (Fluzone Quad Syringe) 0.5 ml ONCE ONCE 11/02/20 09:00 11/02/20 09:03 DC Iohexol (Omnipaque 300 Mg/ml) 50 ml STK-MED ONCE 11/02/20 11:28 11/02/20 11:28 DC 11/02/20 12:25 50 ML Levofloxacin/ Dextrose 100 ml @ 100 mls/hr Q24H 11/03/20 10:00 11/03/20 10:18 100 MLS/HR Lidocaine HCl (Buffered Lidocaine 1%) 3 ml 1X ONCE 11/03/20 11:45 11/03/20 11:46 DC 11/03/20 11:54 3 ML Lidocaine HCl (Lidocaine Pf 2% Vial) 5 ml STK-MED ONCE 11/02/20 10:50 11/02/20 10:51 DC Lidocaine HCl (Xylocaine-Mpf 1% 2ml Vial) 2 ml 1X PRN PRN 11/02/20 08:15 11/03/20 08:14 DC Linezolid/Dextrose 300 ml @ 300 mls/hr Q12HR 11/02/20 17:00 11/03/20 21:03 300 MLS/HR Magnesium Hydroxide (Milk Of Magnesia) 2,400 mg PRN Q12HR PRN 11/02/20 07:00 11/03/20 01:25 DC Micafungin Sodium 100 mg/Dextrose 100 ml @ 100 mls/hr Q24H 11/02/20 18:00 11/03/20 18:15 100 MLS/HR Midazolam HCl 100 ml @ 1 mls/hr CONT PRN 11/02/20 14:00 11/03/20 18:20 1 MLS/HR Morphine Sulfate (Morphine Sulfate) 1 mg PRN Q10MIN PRN 11/02/20 08:15 11/02/20 22:40 DC Norepinephrine Bitartrate 32 mg/ Dextrose 282 ml @ 5.536 mls/ hr CONT PRN 11/03/20 08:00 11/04/20 05:12 19.376 MLS/HR Norepinephrine Bitartrate 8 mg/ Dextrose 258 ml @ 20.259 mls/ hr CONT PRN 11/03/20 05:30 11/03/20 07:58 DC 11/03/20 07:02 40.519 MLS/HR Ondansetron HCl (Zofran) 4 mg STK-MED ONCE 11/02/20 10:51 11/02/20 10:51 DC Perflutren Protein Type A Microsphe (Optison) 0.66 mg 1X ONCE 11/03/20 15:00 11/03/20 15:01 DC Phenylephrine HCl (Orestes-Synephrine Inj) 10 mg STK-MED ONCE 11/02/20 13:37 11/02/20 13:37 DC Piperacillin Sod/ Tazobactam Sod 2.25 gm/Sodium Chloride 50 ml @ 100 mls/hr Q6HRS 11/02/20 10:00 11/04/20 05:51 100 MLS/HR Piperacillin Sod/ Tazobactam Sod 3.375 gm/Sodium Chloride 50 ml @ 100 mls/hr Q6HRS 11/02/20 12:00 UNV Potassium Chloride 15 meq/ Bicarbonate Dialysis Soln w/ out KCl 5,007.5 ml @ 1,300 mls/ hr Q3H52M 11/03/20 14:00 11/04/20 03:56 1,300 MLS/HR Prochlorperazine Edisylate (Compazine) 5 mg PACU PRN PRN 11/02/20 08:15 11/03/20 08:14 DC Propofol (Diprivan) 200 mg STK-MED ONCE 11/02/20 10:50 11/02/20 10:51 DC Ringer's Solution 1,000 ml @ 30 mls/hr Q24H 11/02/20 08:15 11/02/20 20:14 DC Rocuronium [place] (Zemuron) 50 mg STK-MED ONCE 11/02/20 10:51 11/02/20 10:52 DC Sodium Bicarbonate 150 meq/Dextrose 1,150 ml @ 150 mls/hr Q7H40M PRN 11/02/20 19:00 11/03/20 13:59 DC 11/03/20 09:33 150 MLS/HR Sodium Bicarbonate (Sodium Bicarb Adult 8.4% Syr) 100 meq 1X ONCE 11/02/20 14:45 11/02/20 14:46 DC 11/02/20 14:44 100 MEQ Sodium Chloride 1,000 ml @ 1,000 mls/hr 1X ONCE 11/02/20 17:30 11/02/20 18:29 DC 11/02/20 17:30 1,000 MLS/HR Succinylcholine Chloride (Anectine) 200 mg STK-MED ONCE 11/02/20 11:35 11/02/20 11:35 DC Vasopressin 20 unit/Dextrose 101 ml @ 12 mls/hr CONT PRN 11/02/20 15:15 11/04/20 03:08 12 MLS/HR Zolpidem Tartrate (Ambien) 5 mg PRN QHS PRN 11/02/20 07:00 Labs: Lab Laboratory Tests Test 11/03/20 08:50 11/03/20 09:50 11/03/20 13:30 11/03/20 15:51 O2 Saturation 96 % (92-99) Arterial Blood pH 7.42 (7.35-7.45) Arterial Blood pCO2 at Patient Temp 36 mmHg (35-46) Arterial Blood pO2 at Patient Temp 98 mmHg (65-108) Arterial Blood HCO3 23 mmol/L (21-28) Arterial Blood Base Excess -2 mmol/L (-3-3) FiO2 60% vent White Blood Count 12.4 x10^3/uL (4.0-11.0) Red Blood Count 3.58 x10^6/uL (3.50-5.40) Hemoglobin 10.1 g/dL (12.0-15.5) Hematocrit 30.5 % (36.0-47.0) Mean Corpuscular Volume 85 fL (79-100) Mean Corpuscular Hemoglobin 28 pg (25-35) Mean Corpuscular Hemoglobin Concent 33 g/dL (31-37) Red Cell Distribution Width 13.8 % (11.5-14.5) Platelet Count 99 x10^3/uL (140-400) Neutrophils (%) (Auto) 83 % (31-73) Lymphocytes (%) (Auto) 8 % (24-48) Monocytes (%) (Auto) 7 % (0-9) Eosinophils (%) (Auto) 2 % (0-3) Basophils (%) (Auto) 0 % (0-3) Neutrophils # (Auto) 10.3 x10^3/uL (1.8-7.7) Lymphocytes # (Auto) 1.0 x10^3/uL (1.0-4.8) Monocytes # (Auto) 0.8 x10^3/uL (0.0-1.1) Eosinophils # (Auto) 0.3 x10^3/uL (0.0-0.7) Basophils # (Auto) 0.0 x10^3/uL (0.0-0.2) Prothrombin Time 26.4 SEC (11.7-14.0) Prothromb Time International Ratio 2.4 (0.8-1.1) D-Dimer (Nathaly) > 20.00 ug/mlFEU Sodium Level 131 mmol/L (136-145) Potassium Level 4.4 mmol/L (3.5-5.1) Chloride Level 92 mmol/L (98-107) Carbon Dioxide Level 25 mmol/L (21-32) Anion Gap 14 (6-14) Blood Urea Nitrogen 78 mg/dL (7-20) Creatinine 2.9 mg/dL (0.6-1.0) Estimated GFR (Cockcroft-Gault) 19.8 Glucose Level 191 mg/dL (70-99) Lactic Acid Level 5.1 mmol/L (0.4-2.0) 4.5 mmol/L (0.4-2.0) Calcium Level 6.2 mg/dL (8.5-10.1) Total Bilirubin 2.2 mg/dL (0.2-1.0) Direct Bilirubin 1.1 mg/dL (0.0-0.2) Aspartate Amino Transf (AST/SGOT) 6839 U/L (15-37) Alanine Aminotransferase (ALT/SGPT) 3927 U/L (14-59) Alkaline Phosphatase 228 U/L (46-116) Troponin I Quantitative 14.960 ng/mL (0.000-0.055) C-Reactive Protein, Quantitative 90.4 mg/L (0-3.3) Total Protein 5.6 g/dL (6.4-8.2) Albumin 2.1 g/dL (3.4-5.0) Fibrinogen 305 mg/dL (200-440) Test 11/03/20 17:25 11/03/20 17:30 11/03/20 20:00 11/04/20 05:40 Troponin I Quantitative 13.026 ng/mL (0.000-0.055) O2 Saturation 98 % (92-99) Arterial Blood pH 7.44 (7.35-7.45) Arterial Blood pCO2 at Patient Temp 34 mmHg (35-46) Arterial Blood pO2 at Patient Temp 116 mmHg (65-108) Arterial Blood HCO3 23 mmol/L (21-28) Arterial Blood Base Excess -1 mmol/L (-3-3) FiO2 50/vent Sodium Level 134 mmol/L (136-145) 134 mmol/L (136-145) Potassium Level 4.1 mmol/L (3.5-5.1) 4.6 mmol/L (3.5-5.1) Chloride Level 99 mmol/L (98-107) 98 mmol/L (98-107) Carbon Dioxide Level 23 mmol/L (21-32) 18 mmol/L (21-32) Anion Gap 12 (6-14) 18 (6-14) Blood Urea Nitrogen 55 mg/dL (7-20) 42 mg/dL (7-20) Creatinine 2.1 mg/dL (0.6-1.0) 2.0 mg/dL (0.6-1.0) Estimated GFR (Cockcroft-Gault) 28.7 30.4 Glucose Level 120 mg/dL (70-99) 80 mg/dL (70-99) Calcium Level 6.4 mg/dL (8.5-10.1) 6.6 mg/dL (8.5-10.1) Phosphorus Level 3.7 mg/dL (2.6-4.7) 4.3 mg/dL (2.6-4.7) Magnesium Level 2.6 mg/dL (1.8-2.4) 2.5 mg/dL (1.8-2.4) White Blood Count 15.3 x10^3/uL (4.0-11.0) Red Blood Count 3.77 x10^6/uL (3.50-5.40) Hemoglobin 10.9 g/dL (12.0-15.5) Hematocrit 33.0 % (36.0-47.0) Mean Corpuscular Volume 87 fL (79-100) Mean Corpuscular Hemoglobin 29 pg (25-35) Mean Corpuscular Hemoglobin Concent 33 g/dL (31-37) Red Cell Distribution Width 14.2 % (11.5-14.5) Platelet Count 83 x10^3/uL (140-400) Neutrophils (%) (Auto) 87 % (31-73) Lymphocytes (%) (Auto) 7 % (24-48) Monocytes (%) (Auto) 6 % (0-9) Eosinophils (%) (Auto) 1 % (0-3) Basophils (%) (Auto) 0 % (0-3) Neutrophils # (Auto) 13.3 x10^3/uL (1.8-7.7) Lymphocytes # (Auto) 1.0 x10^3/uL (1.0-4.8) Monocytes # (Auto) 0.9 x10^3/uL (0.0-1.1) Eosinophils # (Auto) 0.1 x10^3/uL (0.0-0.7) Basophils # (Auto) 0.0 x10^3/uL (0.0-0.2) Segmented Neutrophils % 70 % (35-66) Band Neutrophils % 12 % (0-9) Lymphocytes % 12 % (24-48) Monocytes % 5 % (0-10) Eosinophils % 1 % (0-5) Nucleated Red Blood Cells 12 Platelet Estimate Decreased (ADEQUATE) Polychromasia Present Anisocytosis Present Macrocytosis Present Schistocytes Occ BUN/Creatinine Ratio 21 (6-20) Total Bilirubin 4.1 mg/dL (0.2-1.0) Aspartate Amino Transf (AST/SGOT) 6840 U/L (15-37) Alanine Aminotransferase (ALT/SGPT) 5040 U/L (14-59) Alkaline Phosphatase 261 U/L (46-116) Total Protein 5.6 g/dL (6.4-8.2) Albumin 2.1 g/dL (3.4-5.0) Albumin/Globulin Ratio 0.6 (1.0-1.7) Objective: Assessment: Patient with multiorgan failure 1. Severe Sepsis source unclear at this time 2. Abdominal pain with nausea and vomiting present on admission. Suspected cholecystitis, Nov 02 2020 status post laparoscopic cholecystectomy with gallbladder appeared normal without any changes of acute cholecystitis. Cultures negative 3. Leukocytosis. 4. Severe lactic acidosis postoperatively, up to 13.3, likely ischemic bowel 5. Acute kidney injury.Severe metabolic acidosis. Hyponatremia, on CRRT 6. Hepatic failure, likely hepatorenal syndrome 7. Acute respiratory failure, postoperative. Chest x-ray on admission revealed interstitial changes 8. Anemia. 9. High troponin 10.Protein-calorie malnutrition. 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 SMITHA STRICKLAND MD Nov 04, 2020 08:22
--- NOTE | 2020-11-04 08:26 | RAD ---
XR CHEST 1V INDICATION: resp. failure 108 / Spl. Instructions: / History: . COMPARISON STUDY: 11/03/2020. FINDINGS: Life Support Devices: Stable endotracheal tube, enteric tube, right IJ dual-lumen catheter, right IJ central venous catheter. Lungs: Normal lung volume. Slightly improved patchy bilateral opacities. Pleura: Stable small bilateral pleural effusions. Heart and Mediastinum: Stable cardiomediastinal silhouette and great vessels. Bones and Soft Tissues: Stable regional skeleton and soft tissues. IMPRESSION: 1. Stable life support devices. 2. Slightly improved patchy bilateral opacities. 3. Stable small bilateral pleural effusions. Electronically signed by: Oswaldo Grewal MD (11/04/2020 8:24 AM) [id number]
[2020-11-04 08:55] LABS: BASE EXCESS ABG -10 mmol/L (-3-3); HCO3 ABG 15 mmol/L (21-28); PCO2 ABG 27 mmHg (35-46); PO2 ABG 111 mmHg (65-108); SAT O2 ABG 97 % (92-99)
--- NOTE | 2020-11-04 09:24 | NUR ---
Spoke with Dr Long, Neosynepherine ordered, start maxed and lower levophed to see if we can get off levophed and be on vinnie and vasopressin
[2020-11-04] MEDS ORDERED: PHENYLEPHRINE INJ 50 MG in IV NORMAL SALINE 250ML 250 ML IV PRN (09:30)
[2020-11-04] MEDS: MIDAZOLAM 100mg/100ml NS BAG 100 ML IV PRN (09:31)
--- NOTE | 2020-11-04 09:31 | PDOC ---
PULMONARY PROGRESS NOTES DATE: 11/04/20 TIME: 09:26 Subjective remains intubated, sedated AC mode on CRRT 2 pressors Vitals Vital Signs Date Time Temp Pulse Resp B/P (MAP) Pulse Ox O2 Delivery O2 Flow Rate FiO2 11/04/20 08:54 30 Ventilator 11/04/20 06:30 91 97/71 (80) 11/04/20 06:00 96.6 96.6 11/04/20 01:00 95 11/03/20 12:50 2.0 Lungs: Clear Cardiovascular: S1 Abdomen: Soft Extremities: Other (cyanotic digits) Labs Laboratory Tests Test 11/02/20 10:05 11/02/20 12:35 11/02/20 12:57 11/02/20 13:00 White Blood Count 15.0 x10^3/uL (4.0-11.0) 14.3 x10^3/uL (4.0-11.0) Red Blood Count 4.01 x10^6/uL (3.50-5.40) 3.24 x10^6/uL (3.50-5.40) Hemoglobin 11.4 g/dL (12.0-15.5) 9.2 g/dL (12.0-15.5) Hematocrit 35.7 % (36.0-47.0) 28.3 % (36.0-47.0) Mean Corpuscular Volume 89 fL (79-100) 87 fL (79-100) Mean Corpuscular Hemoglobin 29 pg (25-35) 28 pg (25-35) Mean Corpuscular Hemoglobin Concent 32 g/dL (31-37) 33 g/dL (31-37) Red Cell Distribution Width 14.2 % (11.5-14.5) 14.0 % (11.5-14.5) Platelet Count 191 x10^3/uL (140-400) 168 x10^3/uL (140-400) Neutrophils (%) (Auto) 75 % (31-73) Lymphocytes (%) (Auto) 16 % (24-48) Monocytes (%) (Auto) 9 % (0-9) Eosinophils (%) (Auto) 1 % (0-3) Basophils (%) (Auto) 0 % (0-3) Neutrophils # (Auto) 11.2 x10^3/uL (1.8-7.7) Lymphocytes # (Auto) 2.3 x10^3/uL (1.0-4.8) Monocytes # (Auto) 1.4 x10^3/uL (0.0-1.1) Eosinophils # (Auto) 0.1 x10^3/uL (0.0-0.7) Basophils # (Auto) 0.0 x10^3/uL (0.0-0.2) Sodium Level 129 mmol/L (136-145) 134 mmol/L (136-145) Potassium Level 4.7 mmol/L (3.5-5.1) 5.1 mmol/L (3.5-5.1) Chloride Level 95 mmol/L (98-107) 97 mmol/L (98-107) Carbon Dioxide Level 12 mmol/L (21-32) 16 mmol/L (21-32) Anion Gap 22 (6-14) 21 (6-14) Blood Urea Nitrogen 63 mg/dL (7-20) 64 mg/dL (7-20) Creatinine 2.2 mg/dL (0.6-1.0) 2.5 mg/dL (0.6-1.0) Estimated GFR (Cockcroft-Gault) 27.2 23.5 BUN/Creatinine Ratio 29 (6-20) 26 (6-20) Glucose Level 78 mg/dL (70-99) 86 mg/dL (70-99) 78 mg/dL (70-99) Calcium Level 8.4 mg/dL (8.5-10.1) 7.1 mg/dL (8.5-10.1) Total Bilirubin 1.9 mg/dL (0.2-1.0) 1.7 mg/dL (0.2-1.0) Aspartate Amino Transf (AST/SGOT) 309 U/L (15-37) 388 U/L (15-37) Alanine Aminotransferase (ALT/SGPT) 299 U/L (14-59) 338 U/L (14-59) Alkaline Phosphatase 231 U/L (46-116) 184 U/L (46-116) Total Protein 7.1 g/dL (6.4-8.2) 5.0 g/dL (6.4-8.2) Albumin 2.5 g/dL (3.4-5.0) 2.0 g/dL (3.4-5.0) Albumin/Globulin Ratio 0.5 (1.0-1.7) 0.7 (1.0-1.7) Bedside Hemoglobin (Calculated) 9.5 g/dL (12-15) Bedside Hematocrit 28 % (36-40) Bedside Arterial pH 7.17 (7.35-7.45) Arterial Blood pH (Temp corrected) 7.17 Bedside Arterial pCO2 32 mmHg (35-45) Arterial Blood pCO2 (Temp correct) 32 mmHg Bedside Arterial pO2 203 mmHg (75-100) Arterial Blood pO2 (Temp corrected) 203 mmHg Bedside Arterial HCO3 12 mmol/L (21-28) Bedside Arterial Total CO2 13 mmol/L (21-32) Arterial Bld O2 Saturation (Measur) 99 % (95-99) Bedside Arterial Blood Base Excess -17 mmol/L (0-3) Bedside FiO2 21.0 Bedside Sodium 129 mmol/L (135-145) Bedside Potassium 4.4 mmol/L (3.5-5.0) Bedside Ionized Calcium (Ashley) 1.01 mmol/L (1.13-1.32) Prothrombin Time 19.6 SEC (11.7-14.0) Prothromb Time International Ratio 1.7 (0.8-1.1) Activated Partial Thromboplast Time 29 SEC (24-38) Iron Level 61 ug/dL (50-170) Total Iron Binding Capacity 224 ug/dL (250-450) Iron Saturation 27 % (15-34) Ceruloplasmin 34.9 mg/dL (19.0-39.0) Hepatitis A IgM Antibody Nonreactive (Nonreactive) Hepatitis B Surface Antigen Nonreactive (Nonreactive) Hepatitis B Core IgM Antibody Nonreactive (Nonreactive) Hepatitis C IgG Antibody Nonreactive (Nonreactive) Test 11/02/20 13:15 11/02/20 14:22 11/02/20 16:30 11/02/20 17:41 Bedside Arterial pH 7.16 (7.35-7.45) Bedside Arterial pCO2 45 mmHg (35-45) Bedside Arterial pO2 184 mmHg (75-100) Arterial Blood pO2 (Temp corrected) mmHg 144 mmHg 189 mmHg Arterial Blood HCO3 16 mmol/L (21-28) 13 mmol/L (21-28) 11 mmol/L (21-28) Bedside Arterial Blood O2 Sat 99 % (95-99) Bedside FiO2 100 O2 Saturation 98 % (92-99) 99 % (92-99) Arterial Blood pH 7.18 (7.35-7.45) 7.21 (7.35-7.45) Arterial Blood pH (Temp corrected) 7.19 7.22 Arterial Blood pCO2 at Patient Temp 36 mmHg (35-46) 28 mmHg (35-46) Arterial Blood pCO2 (Temp correct) 35 mmHg 27 mmHg Arterial Blood pO2 at Patient Temp 149 mmHg (65-108) 193 mmHg (65-108) Arterial Blood Base Excess -14 mmol/L (-3-3) -16 mmol/L (-3-3) FiO2 100 100 Lactic Acid Level 11.8 mmol/L (0.4-2.0) Test 11/02/20 18:49 11/02/20 21:15 11/03/20 08:50 11/03/20 09:50 Urine Collection Type Unknown Urine Color Radha Urine Clarity Cloudy Urine pH 5.0 (<5.0-8.0) Urine Specific [place] 1.020 (1.000-1.030) Urine Protein 30 mg/dL (NEG-TRACE) Urine Glucose (UA) Negative mg/dL (NEG) Urine Ketones (Stick) Negative mg/dL (NEG) Urine Blood Small (NEG) Urine Nitrite Negative (NEG) Urine Bilirubin Negative (NEG) Urine Urobilinogen Dipstick 1.0 mg/dL (0.2 mg/dL) Urine Leukocyte Esterase Negative (NEG) Urine RBC 6-10 /HPF (0-2) Urine WBC 1-4 /HPF (0-4) Urine Transitional Epithelial Cells Few /LPF Urine Amorphous Sediment Present /HPF Urine Bacteria 0 /HPF (0-FEW) Urine Hyaline Casts Moderate /HPF Urine Waxy Casts Occasional /HPF Urine Mucus Slight /LPF Urine Opiates Screen Pos (NEG) Urine Methadone Screen Neg (NEG) Urine Barbiturates Neg (NEG) Urine Phencyclidine Screen Neg (NEG) Urine Amphetamine/Methamphetamine Neg (NEG) Urine Benzodiazepines Screen Pos (NEG) Urine Cocaine Screen Neg (NEG) Urine Cannabinoids Screen Pos (NEG) Urine Ethyl Alcohol Neg (NEG) Lactic Acid Level 13.3 mmol/L (0.4-2.0) 5.1 mmol/L (0.4-2.0) O2 Saturation 96 % (92-99) Arterial Blood pH 7.42 (7.35-7.45) Arterial Blood pCO2 at Patient Temp 36 mmHg (35-46) Arterial Blood pO2 at Patient Temp 98 mmHg (65-108) Arterial Blood HCO3 23 mmol/L (21-28) Arterial Blood Base Excess -2 mmol/L (-3-3) FiO2 60% vent White Blood Count 12.4 x10^3/uL (4.0-11.0) Red Blood Count 3.58 x10^6/uL (3.50-5.40) Hemoglobin 10.1 g/dL (12.0-15.5) Hematocrit 30.5 % (36.0-47.0) Mean Corpuscular Volume 85 fL (79-100) Mean Corpuscular Hemoglobin 28 pg (25-35) Mean Corpuscular Hemoglobin Concent 33 g/dL (31-37) Red Cell Distribution Width 13.8 % (11.5-14.5) Platelet Count 99 x10^3/uL (140-400) Neutrophils (%) (Auto) 83 % (31-73) Lymphocytes (%) (Auto) 8 % (24-48) Monocytes (%) (Auto) 7 % (0-9) Eosinophils (%) (Auto) 2 % (0-3) Basophils (%) (Auto) 0 % (0-3) Neutrophils # (Auto) 10.3 x10^3/uL (1.8-7.7) Lymphocytes # (Auto) 1.0 x10^3/uL (1.0-4.8) Monocytes # (Auto) 0.8 x10^3/uL (0.0-1.1) Eosinophils # (Auto) 0.3 x10^3/uL (0.0-0.7) Basophils # (Auto) 0.0 x10^3/uL (0.0-0.2) Prothrombin Time 26.4 SEC (11.7-14.0) Prothromb Time International Ratio 2.4 (0.8-1.1) D-Dimer (Nathaly) > 20.00 ug/mlFEU Sodium Level 131 mmol/L (136-145) Potassium Level 4.4 mmol/L (3.5-5.1) Chloride Level 92 mmol/L (98-107) Carbon Dioxide Level 25 mmol/L (21-32) Anion Gap 14 (6-14) Blood Urea Nitrogen 78 mg/dL (7-20) Creatinine 2.9 mg/dL (0.6-1.0) Estimated GFR (Cockcroft-Gault) 19.8 Glucose Level 191 mg/dL (70-99) Calcium Level 6.2 mg/dL (8.5-10.1) Total Bilirubin 2.2 mg/dL (0.2-1.0) Direct Bilirubin 1.1 mg/dL (0.0-0.2) Aspartate Amino Transf (AST/SGOT) 6839 U/L (15-37) Alanine Aminotransferase (ALT/SGPT) 3927 U/L (14-59) Alkaline Phosphatase 228 U/L (46-116) Troponin I Quantitative 14.960 ng/mL (0.000-0.055) C-Reactive Protein, Quantitative 90.4 mg/L (0-3.3) Total Protein 5.6 g/dL (6.4-8.2) Albumin 2.1 g/dL (3.4-5.0) Test 11/03/20 13:30 11/03/20 15:51 11/03/20 17:25 11/03/20 17:30 Lactic Acid Level 4.5 mmol/L (0.4-2.0) Fibrinogen 305 mg/dL (200-440) Troponin I Quantitative 13.026 ng/mL (0.000-0.055) O2 Saturation 98 % (92-99) Arterial Blood pH 7.44 (7.35-7.45) Arterial Blood pCO2 at Patient Temp 34 mmHg (35-46) Arterial Blood pO2 at Patient Temp 116 mmHg (65-108) Arterial Blood HCO3 23 mmol/L (21-28) Arterial Blood Base Excess -1 mmol/L (-3-3) FiO2 50/vent Test 11/03/20 20:00 11/04/20 05:40 Sodium Level 134 mmol/L (136-145) 134 mmol/L (136-145) Potassium Level 4.1 mmol/L (3.5-5.1) 4.6 mmol/L (3.5-5.1) Chloride Level 99 mmol/L (98-107) 98 mmol/L (98-107) Carbon Dioxide Level 23 mmol/L (21-32) 18 mmol/L (21-32) Anion Gap 12 (6-14) 18 (6-14) Blood Urea Nitrogen 55 mg/dL (7-20) 42 mg/dL (7-20) Creatinine 2.1 mg/dL (0.6-1.0) 2.0 mg/dL (0.6-1.0) Estimated GFR (Cockcroft-Gault) 28.7 30.4 Glucose Level 120 mg/dL (70-99) 80 mg/dL (70-99) Calcium Level 6.4 mg/dL (8.5-10.1) 6.6 mg/dL (8.5-10.1) Phosphorus Level 3.7 mg/dL (2.6-4.7) 4.3 mg/dL (2.6-4.7) Magnesium Level 2.6 mg/dL (1.8-2.4) 2.5 mg/dL (1.8-2.4) White Blood Count 15.3 x10^3/uL (4.0-11.0) Red Blood Count 3.77 x10^6/uL (3.50-5.40) Hemoglobin 10.9 g/dL (12.0-15.5) Hematocrit 33.0 % (36.0-47.0) Mean Corpuscular Volume 87 fL (79-100) Mean Corpuscular Hemoglobin 29 pg (25-35) Mean Corpuscular Hemoglobin Concent 33 g/dL (31-37) Red Cell Distribution Width 14.2 % (11.5-14.5) Platelet Count 83 x10^3/uL (140-400) Neutrophils (%) (Auto) 87 % (31-73) Lymphocytes (%) (Auto) 7 % (24-48) Monocytes (%) (Auto) 6 % (0-9) Eosinophils (%) (Auto) 1 % (0-3) Basophils (%) (Auto) 0 % (0-3) Neutrophils # (Auto) 13.3 x10^3/uL (1.8-7.7) Lymphocytes # (Auto) 1.0 x10^3/uL (1.0-4.8) Monocytes # (Auto) 0.9 x10^3/uL (0.0-1.1) Eosinophils # (Auto) 0.1 x10^3/uL (0.0-0.7) Basophils # (Auto) 0.0 x10^3/uL (0.0-0.2) Segmented Neutrophils % 70 % (35-66) Band Neutrophils % 12 % (0-9) Lymphocytes % 12 % (24-48) Monocytes % 5 % (0-10) Eosinophils % 1 % (0-5) Nucleated Red Blood Cells 12 Platelet Estimate Decreased (ADEQUATE) Polychromasia Present Anisocytosis Present Macrocytosis Present Schistocytes Occ BUN/Creatinine Ratio 21 (6-20) Total Bilirubin 4.1 mg/dL (0.2-1.0) Aspartate Amino Transf (AST/SGOT) 6840 U/L (15-37) Alanine Aminotransferase (ALT/SGPT) 5040 U/L (14-59) Alkaline Phosphatase 261 U/L (46-116) Total Protein 5.6 g/dL (6.4-8.2) Albumin 2.1 g/dL (3.4-5.0) Albumin/Globulin Ratio 0.6 (1.0-1.7) Laboratory Tests Test 11/03/20 09:50 11/03/20 13:30 11/03/20 15:51 11/03/20 17:25 White Blood Count 12.4 x10^3/uL (4.0-11.0) Red Blood Count 3.58 x10^6/uL (3.50-5.40) Hemoglobin 10.1 g/dL (12.0-15.5) Hematocrit 30.5 % (36.0-47.0) Mean Corpuscular Volume 85 fL (79-100) Mean Corpuscular Hemoglobin 28 pg (25-35) Mean Corpuscular Hemoglobin Concent 33 g/dL (31-37) Red Cell Distribution Width 13.8 % (11.5-14.5) Platelet Count 99 x10^3/uL (140-400) Neutrophils (%) (Auto) 83 % (31-73) Lymphocytes (%) (Auto) 8 % (24-48) Monocytes (%) (Auto) 7 % (0-9) Eosinophils (%) (Auto) 2 % (0-3) Basophils (%) (Auto) 0 % (0-3) Neutrophils # (Auto) 10.3 x10^3/uL (1.8-7.7) Lymphocytes # (Auto) 1.0 x10^3/uL (1.0-4.8) Monocytes # (Auto) 0.8 x10^3/uL (0.0-1.1) Eosinophils # (Auto) 0.3 x10^3/uL (0.0-0.7) Basophils # (Auto) 0.0 x10^3/uL (0.0-0.2) Prothrombin Time 26.4 SEC (11.7-14.0) Prothromb Time International Ratio 2.4 (0.8-1.1) D-Dimer (Nathaly) > 20.00 ug/mlFEU Sodium Level 131 mmol/L (136-145) Potassium Level 4.4 mmol/L (3.5-5.1) Chloride Level 92 mmol/L (98-107) Carbon Dioxide Level 25 mmol/L (21-32) Anion Gap 14 (6-14) Blood Urea Nitrogen 78 mg/dL (7-20) Creatinine 2.9 mg/dL (0.6-1.0) Estimated GFR (Cockcroft-Gault) 19.8 Glucose Level 191 mg/dL (70-99) Lactic Acid Level 5.1 mmol/L (0.4-2.0) 4.5 mmol/L (0.4-2.0) Calcium Level 6.2 mg/dL (8.5-10.1) Total Bilirubin 2.2 mg/dL (0.2-1.0) Direct Bilirubin 1.1 mg/dL (0.0-0.2) Aspartate Amino Transf (AST/SGOT) 6839 U/L (15-37) Alanine Aminotransferase (ALT/SGPT) 3927 U/L (14-59) Alkaline Phosphatase 228 U/L (46-116) Troponin I Quantitative 14.960 ng/mL (0.000-0.055) 13.026 ng/mL (0.000-0.055) C-Reactive Protein, Quantitative 90.4 mg/L (0-3.3) Total Protein 5.6 g/dL (6.4-8.2) Albumin 2.1 g/dL (3.4-5.0) Fibrinogen 305 mg/dL (200-440) Test 11/03/20 17:30 11/03/20 20:00 11/04/20 05:40 O2 Saturation 98 % (92-99) Arterial Blood pH 7.44 (7.35-7.45) Arterial Blood pCO2 at Patient Temp 34 mmHg (35-46) Arterial Blood pO2 at Patient Temp 116 mmHg (65-108) Arterial Blood HCO3 23 mmol/L (21-28) Arterial Blood Base Excess -1 mmol/L (-3-3) FiO2 50/vent Sodium Level 134 mmol/L (136-145) 134 mmol/L (136-145) Potassium Level 4.1 mmol/L (3.5-5.1) 4.6 mmol/L (3.5-5.1) Chloride Level 99 mmol/L (98-107) 98 mmol/L (98-107) Carbon Dioxide Level 23 mmol/L (21-32) 18 mmol/L (21-32) Anion Gap 12 (6-14) 18 (6-14) Blood Urea Nitrogen 55 mg/dL (7-20) 42 mg/dL (7-20) Creatinine 2.1 mg/dL (0.6-1.0) 2.0 mg/dL (0.6-1.0) Estimated GFR (Cockcroft-Gault) 28.7 30.4 Glucose Level 120 mg/dL (70-99) 80 mg/dL (70-99) Calcium Level 6.4 mg/dL (8.5-10.1) 6.6 mg/dL (8.5-10.1) Phosphorus Level 3.7 mg/dL (2.6-4.7) 4.3 mg/dL (2.6-4.7) Magnesium Level 2.6 mg/dL (1.8-2.4) 2.5 mg/dL (1.8-2.4) White Blood Count 15.3 x10^3/uL (4.0-11.0) Red Blood Count 3.77 x10^6/uL (3.50-5.40) Hemoglobin 10.9 g/dL (12.0-15.5) Hematocrit 33.0 % (36.0-47.0) Mean Corpuscular Volume 87 fL (79-100) Mean Corpuscular Hemoglobin 29 pg (25-35) Mean Corpuscular Hemoglobin Concent 33 g/dL (31-37) Red Cell Distribution Width 14.2 % (11.5-14.5) Platelet Count 83 x10^3/uL (140-400) Neutrophils (%) (Auto) 87 % (31-73) Lymphocytes (%) (Auto) 7 % (24-48) Monocytes (%) (Auto) 6 % (0-9) Eosinophils (%) (Auto) 1 % (0-3) Basophils (%) (Auto) 0 % (0-3) Neutrophils # (Auto) 13.3 x10^3/uL (1.8-7.7) Lymphocytes # (Auto) 1.0 x10^3/uL (1.0-4.8) Monocytes # (Auto) 0.9 x10^3/uL (0.0-1.1) Eosinophils # (Auto) 0.1 x10^3/uL (0.0-0.7) Basophils # (Auto) 0.0 x10^3/uL (0.0-0.2) Segmented Neutrophils % 70 % (35-66) Band Neutrophils % 12 % (0-9) Lymphocytes % 12 % (24-48) Monocytes % 5 % (0-10) Eosinophils % 1 % (0-5) Nucleated Red Blood Cells 12 Platelet Estimate Decreased (ADEQUATE) Polychromasia Present Anisocytosis Present Macrocytosis Present Schistocytes Occ BUN/Creatinine Ratio 21 (6-20) Total Bilirubin 4.1 mg/dL (0.2-1.0) Aspartate Amino Transf (AST/SGOT) 6840 U/L (15-37) Alanine Aminotransferase (ALT/SGPT) 5040 U/L (14-59) Alkaline Phosphatase 261 U/L (46-116) Total Protein 5.6 g/dL (6.4-8.2) Albumin 2.1 g/dL (3.4-5.0) Albumin/Globulin Ratio 0.6 (1.0-1.7) Medications Active Scripts Medications Dose Route/Sig Max Daily Dose Days Date Category Ibuprofen 800 Mg Tablet 800 Mg PO PRN Q6HRS PRN 11/01/20 Reported Comments cxr 11/04 improving infiltrates/ CHF Impression . IMPRESSION: 1. Acute hypoxemic respiratory failure due to septic shock, expected status post laparoscopic cholecystectomy. 2. Severe metabolic acidosis, suspect combination of renal failure and sepsis. 3. Acalculous cholecystitis, status post cholecystectomy. 4. Elevated liver chemistries. Etiology unclear, may be related to sepsis. 5. Small bilateral effusions. 6. Morbid obesity. 7. Acute renal failure. 8. Hyponatremia. 9. SHINE, on CRRT now 10. early digit gangrene/ ischemia Plan . PLAN: continue current vent support/ AC mode Follow CXR/ABG-- Fi02 40% and PEEP of 5 Follow nephrology recs -- CRRT Continue Vasopressors to Keep MAP above 65-- on levo and vaso , will add vinnie and wean off levo ( digit ischemia) Follow cardiology recs Continue ABX per ID: Marlena/Zyvox/Zosyn Follow cultures Covid -19 negative Follow Surgery recs S/P choly on 11/02/ drain in place Follow GI recs , markedly increase LFT DVT/GI PPX D/W RN and RT Critical Care Time 0900-0930AM ALLISON YARBROUGH MD Nov 04, 2020 09:31
--- NOTE | 2020-11-04 09:47 | PDOC ---
Date of Service: DATE: 11/04/20 TIME: 09:39 Objective: Objective: D/w nurse - dark output from OG. Reviewed other notes - ID d/w family. Vital Signs: Vital Signs Date Time Temp Pulse Resp B/P (MAP) Pulse Ox O2 Delivery O2 Flow Rate FiO2 11/04/20 08:54 30 Ventilator 11/04/20 06:30 91 97/71 (80) 11/04/20 06:00 96.6 96.6 11/04/20 01:00 95 11/03/20 12:50 2.0 Labs: Laboratory Tests Test 11/03/20 09:50 11/03/20 13:30 11/03/20 15:51 11/03/20 17:25 White Blood Count 12.4 x10^3/uL Red Blood Count 3.58 x10^6/uL Hemoglobin 10.1 g/dL Hematocrit 30.5 % Mean Corpuscular Volume 85 fL Mean Corpuscular Hemoglobin 28 pg Mean Corpuscular Hemoglobin Concent 33 g/dL Red Cell Distribution Width 13.8 % Platelet Count 99 x10^3/uL Neutrophils (%) (Auto) 83 % Lymphocytes (%) (Auto) 8 % Monocytes (%) (Auto) 7 % Eosinophils (%) (Auto) 2 % Basophils (%) (Auto) 0 % Neutrophils # (Auto) 10.3 x10^3/uL Lymphocytes # (Auto) 1.0 x10^3/uL Monocytes # (Auto) 0.8 x10^3/uL Eosinophils # (Auto) 0.3 x10^3/uL Basophils # (Auto) 0.0 x10^3/uL Prothrombin Time 26.4 SEC Prothromb Time International Ratio 2.4 D-Dimer (Nathaly) > 20.00 ug/mlFEU Sodium Level 131 mmol/L Potassium Level 4.4 mmol/L Chloride Level 92 mmol/L Carbon Dioxide Level 25 mmol/L Anion Gap 14 Blood Urea Nitrogen 78 mg/dL Creatinine 2.9 mg/dL Estimated GFR (Cockcroft-Gault) 19.8 Glucose Level 191 mg/dL Lactic Acid Level 5.1 mmol/L 4.5 mmol/L Calcium Level 6.2 mg/dL Total Bilirubin 2.2 mg/dL Direct Bilirubin 1.1 mg/dL Aspartate Amino Transf (AST/SGOT) 6839 U/L Alanine Aminotransferase (ALT/SGPT) 3927 U/L Alkaline Phosphatase 228 U/L Troponin I Quantitative 14.960 ng/mL 13.026 ng/mL C-Reactive Protein, Quantitative 90.4 mg/L Total Protein 5.6 g/dL Albumin 2.1 g/dL Fibrinogen 305 mg/dL Test 11/03/20 17:30 11/03/20 20:00 11/04/20 05:40 O2 Saturation 98 % Arterial Blood pH 7.44 Arterial Blood pCO2 at Patient Temp 34 mmHg Arterial Blood pO2 at Patient Temp 116 mmHg Arterial Blood HCO3 23 mmol/L Arterial Blood Base Excess -1 mmol/L FiO2 50/vent Sodium Level 134 mmol/L 134 mmol/L Potassium Level 4.1 mmol/L 4.6 mmol/L Chloride Level 99 mmol/L 98 mmol/L Carbon Dioxide Level 23 mmol/L 18 mmol/L Anion Gap 12 18 Blood Urea Nitrogen 55 mg/dL 42 mg/dL Creatinine 2.1 mg/dL 2.0 mg/dL Estimated GFR (Cockcroft-Gault) 28.7 30.4 Glucose Level 120 mg/dL 80 mg/dL Calcium Level 6.4 mg/dL 6.6 mg/dL Phosphorus Level 3.7 mg/dL 4.3 mg/dL Magnesium Level 2.6 mg/dL 2.5 mg/dL White Blood Count 15.3 x10^3/uL Red Blood Count 3.77 x10^6/uL Hemoglobin 10.9 g/dL Hematocrit 33.0 % Mean Corpuscular Volume 87 fL Mean Corpuscular Hemoglobin 29 pg Mean Corpuscular Hemoglobin Concent 33 g/dL Red Cell Distribution Width 14.2 % Platelet Count 83 x10^3/uL Neutrophils (%) (Auto) 87 % Lymphocytes (%) (Auto) 7 % Monocytes (%) (Auto) 6 % Eosinophils (%) (Auto) 1 % Basophils (%) (Auto) 0 % Neutrophils # (Auto) 13.3 x10^3/uL Lymphocytes # (Auto) 1.0 x10^3/uL Monocytes # (Auto) 0.9 x10^3/uL Eosinophils # (Auto) 0.1 x10^3/uL Basophils # (Auto) 0.0 x10^3/uL Segmented Neutrophils % 70 % Band Neutrophils % 12 % Lymphocytes % 12 % Monocytes % 5 % Eosinophils % 1 % Nucleated Red Blood Cells 12 Platelet Estimate Decreased Polychromasia Present Anisocytosis Present Macrocytosis Present Schistocytes Occ BUN/Creatinine Ratio 21 Total Bilirubin 4.1 mg/dL Aspartate Amino Transf (AST/SGOT) 6840 U/L Alanine Aminotransferase (ALT/SGPT) 5040 U/L Alkaline Phosphatase 261 U/L Total Protein 5.6 g/dL Albumin 2.1 g/dL Albumin/Globulin Ratio 0.6 BLOOD CULTURE Preliminary NO GROWTH AFTER 1 DAY Imaging: CXR 11/04 IMPRESSION: 1. Stable life support devices. 2. Slightly improved patchy bilateral opacities. 3. Stable small bilateral pleural effusions. Echo 11/03 <Conclusion> Hypokinetic mid to distal myocardial segments, pattern suspicous for Takotsubo's cardiomyopathy. The ejection fraction is estimated at 35-40%. Trace mitral regurgitation. Mild tricuspid regurgitation. Estimated PAP 50 mmHg. There is no evidence of significant pericardial effusion. PE: GEN: intubated on CRRT, warming blanket LUNGS: vent/clear HEART: +murm ABD: soft, quiet, OG w/ dark liquid NEURO/PSYCH: sedated A/P: MOF, sepsis, cardiomyopathy COVID negative 11/01 -- LFTs noted, echo as above. Will d/w Dr. Garza. Justicifation of Admission Dx: Justifications for Admission: Justification of Admission Dx: Yes JACKELINE CASTILLO Nov 04, 2020 09:47
[2020-11-04] MEDS ORDERED: EPINEPHrine SYRINGE 1 MG/10 ML SYRINGE ONE (10:00)
[2020-11-04] MEDS ORDERED: SODIUM BICARB ADULT 8.4% 50 MEQ/50 ML DISP.SYRIN. ONE (10:00)
[2020-11-04] MEDS ORDERED: MICAFUNGIN 100 MG in IV DEXTROSE 5% 100ML 100 ML IV SCH (10:00)
[2020-11-04] MEDS ORDERED: ATROPINE 1 MG/10 ML DISP.SYRINGE. ONE (10:00)
--- NOTE | 2020-11-04 10:22 | PDOC ---
DATE OF SERVICE DATE: 11/04/20 TIME: 10:13 SUBJECTIVE ROS Remains intubated, sedated, started on CRRT 11/03- tolerating without issues OBJECTIVE Vital Signs Vital Signs Date Time Temp Pulse Resp B/P (MAP) Pulse Ox O2 Delivery O2 Flow Rate FiO2 11/04/20 08:54 30 Ventilator 11/04/20 06:30 91 97/71 (80) 11/04/20 06:00 96.6 96.6 11/04/20 01:00 95 11/03/20 12:50 2.0 I & 0 Intake and Output 11/04/20 07:00 Intake Total 3259 ml Output Total 457 ml Balance 2802 ml IV Total 3259 ml Output Urine Total 342 ml Drainage Total 115 ml PHYSICAL EXAM Physical Exam GENERAL: Intubated, sedated. HEENT: ETT OG tube in place. NECK: Right IJ in place. LUNGS: Clear anteriorly. HEART: S1, S2, systolic murmur at the left sternal border. ABDOMEN: Obese, distended. Laparoscopic incision intact, MATTHEW drain in place. EXTREMITIES: No edema, cyanosis finger tips DERM: . No generalized rash. NEUROLOGIC: Intubated. PSYCHIATRIC: Unable to assess. : Soler in place. DIAGNOSIS/ASSESSMENT Assessment & Plan SHINE - ATN 2/2 severe sepsis ,Oliguric Started on CRRT 11/03- tolerating ,continue as ordered, No UF , dw nursing Sepsis- Source unknown . CT scan w/o contrast today Hypotension on pressor support, titrating down Levophed due to dogital ischemia- on Vaso and Orestes HypoCalcemia - Corrected for Alb is Normal Hyponatremia- mild Acute hypoxemic respiratory failure, status post laparoscopic cholecystectomy Metabolic acidosis - Bicarb mildly low. continue CRRT, adjust Bicarb as needed Acalculous cholecystitis, status post cholecystectomy. No e/o cholecystitis Elevated LFT's - worsening Small bilateral effusions. COMMENT/RELEVANT DATA Meds Current Medications Medications (Trade) Dose Ordered Sig/Katherine Start Time Stop Time Status Last Admin Dose Admin Acetaminophen (Tylenol) 650 mg PRN Q6HRS PRN 11/02/20 07:00 Albuterol Sulfate (Ventolin Hfa) 60 puff STK-MED ONCE 11/02/20 12:35 11/02/20 12:36 DC Bisacodyl (Dulcolax Supp) 10 mg PRN DAILY PRN 11/02/20 07:00 Bupivacaine HCl (Sensorcaine Mpf 0.5%) 30 ml STK-MED ONCE 11/02/20 11:28 11/02/20 11:28 DC 11/02/20 12:25 30 ML Cellulose (Surgicel Hemostat 4x8) 1 each STK-MED ONCE 11/02/20 12:56 11/02/20 12:56 DC Dexamethasone Sodium Phosphate (Decadron) 20 mg STK-MED ONCE 11/02/20 10:50 11/02/20 10:51 DC Enoxaparin Sodium (Lovenox 40mg Syringe) 40 mg Q24H 11/02/20 08:00 11/02/20 07:41 DC Epinephrine HCl (Adrenalin) 1 mg STK-MED ONCE 11/02/20 14:11 11/02/20 14:11 DC Famotidine (Pepcid Vial) 20 mg BID 11/04/20 21:00 Fentanyl Citrate 30 ml @ 2.5 mls/hr CONT PRN 11/02/20 14:00 11/04/20 08:24 2.5 MLS/HR Fentanyl Citrate (Fentanyl 2ml Vial) 100 mcg STK-MED ONCE 11/02/20 11:40 11/02/20 11:40 DC Furosemide (Lasix) 40 mg 1X ONCE 11/02/20 17:15 11/02/20 17:16 DC 11/02/20 17:47 40 MG Heparin Sodium (Porcine) (Heparin Sodium) 5,000 unit Q8HRS 11/03/20 14:00 11/04/20 05:52 5,000 UNIT Hydromorphone HCl (Dilaudid) 0.5 mg PRN Q10MIN PRN 11/02/20 08:15 11/02/20 22:41 DC Influenza Virus Vaccine Quadrival (Fluzone Quad Syringe) 0.5 ml ONCE ONCE 11/02/20 09:00 11/02/20 09:03 DC Iohexol (Omnipaque 300 Mg/ml) 50 ml STK-MED ONCE 11/02/20 11:28 11/02/20 11:28 DC 11/02/20 12:25 50 ML Levofloxacin/ Dextrose 100 ml @ 100 mls/hr Q48H 11/05/20 09:00 Lidocaine HCl (Buffered Lidocaine 1%) 3 ml 1X ONCE 11/03/20 11:45 11/03/20 11:46 DC 11/03/20 11:54 3 ML Lidocaine HCl (Lidocaine Pf 2% Vial) 5 ml STK-MED ONCE 11/02/20 10:50 11/02/20 10:51 DC Lidocaine HCl (Xylocaine-Mpf 1% 2ml Vial) 2 ml 1X PRN PRN 11/02/20 08:15 11/03/20 08:14 DC Linezolid/Dextrose 300 ml @ 300 mls/hr Q12HR 11/02/20 17:00 11/04/20 08:24 300 MLS/HR Magnesium Hydroxide (Milk Of Magnesia) 2,400 mg PRN Q12HR PRN 11/02/20 07:00 11/03/20 01:25 DC Micafungin Sodium 100 mg/Dextrose 100 ml @ 100 mls/hr Q24H 11/04/20 10:00 11/04/20 09:38 100 MLS/HR Midazolam HCl 100 ml @ 1 mls/hr CONT PRN 11/02/20 14:00 11/04/20 09:31 1 MLS/HR Morphine Sulfate (Morphine Sulfate) 1 mg PRN Q10MIN PRN 11/02/20 08:15 11/02/20 22:40 DC Norepinephrine Bitartrate 32 mg/ Dextrose 282 ml @ 5.536 mls/ hr CONT PRN 11/03/20 08:00 11/04/20 05:12 19.376 MLS/HR Norepinephrine Bitartrate 8 mg/ Dextrose 258 ml @ 20.259 mls/ hr CONT PRN 11/03/20 05:30 11/03/20 07:58 DC 11/03/20 07:02 40.519 MLS/HR Ondansetron HCl (Zofran) 4 mg STK-MED ONCE 11/02/20 10:51 11/02/20 10:51 DC Perflutren Protein Type A Microsphe (Optison) 0.66 mg STK-MED ONCE 11/03/20 08:00 11/04/20 08:53 DC Phenylephrine HCl (Orestes-Synephrine Inj) 10 mg STK-MED ONCE 11/02/20 13:37 11/02/20 13:37 DC Phenylephrine HCl 50 mg/Sodium Chloride 255 ml @ 18.574 mls/ hr CONT PRN 11/04/20 09:30 11/04/20 09:54 18.574 MLS/HR Piperacillin Sod/ Tazobactam Sod 2.25 gm/Sodium Chloride 50 ml @ 100 mls/hr Q6HRS 11/02/20 10:00 11/04/20 05:51 100 MLS/HR Piperacillin Sod/ Tazobactam Sod 3.375 gm/Sodium Chloride 50 ml @ 100 mls/hr Q6HRS 11/02/20 12:00 UNV Potassium Chloride 15 meq/ Bicarbonate Dialysis Soln w/ out KCl 5,007.5 ml @ 1,300 mls/ hr Q3H52M 11/03/20 14:00 11/04/20 08:23 1,300 MLS/HR Prochlorperazine Edisylate (Compazine) 5 mg PACU PRN PRN 11/02/20 08:15 11/03/20 08:14 DC Propofol (Diprivan) 200 mg STK-MED ONCE 11/02/20 10:50 11/02/20 10:51 DC Ringer's Solution 1,000 ml @ 30 mls/hr Q24H 11/02/20 08:15 11/02/20 20:14 DC Rocuronium [place] (Zemuron) 50 mg STK-MED ONCE 11/02/20 10:51 11/02/20 10:52 DC Sodium Bicarbonate 150 meq/Dextrose 1,150 ml @ 150 mls/hr Q7H40M PRN 11/02/20 19:00 11/03/20 13:59 DC 11/03/20 09:33 150 MLS/HR Sodium Bicarbonate (Sodium Bicarb Adult 8.4% Syr) 100 meq 1X ONCE 11/02/20 14:45 11/02/20 14:46 DC 11/02/20 14:44 100 MEQ Sodium Chloride 1,000 ml @ 1,000 mls/hr 1X ONCE 11/02/20 17:30 11/02/20 18:29 DC 11/02/20 17:30 1,000 MLS/HR Succinylcholine Chloride (Anectine) 200 mg STK-MED ONCE 11/02/20 11:35 11/02/20 11:35 DC Vasopressin 20 unit/Dextrose 101 ml @ 12 mls/hr CONT PRN 11/02/20 15:15 11/04/20 03:08 12 MLS/HR Zolpidem Tartrate (Ambien) 5 mg PRN QHS PRN 11/02/20 07:00 Lab Laboratory Tests Test 11/03/20 13:30 11/03/20 15:51 11/03/20 17:25 11/03/20 17:30 Lactic Acid Level 4.5 mmol/L (0.4-2.0) Fibrinogen 305 mg/dL (200-440) Troponin I Quantitative 13.026 ng/mL (0.000-0.055) O2 Saturation 98 % (92-99) Arterial Blood pH 7.44 (7.35-7.45) Arterial Blood pCO2 at Patient Temp 34 mmHg (35-46) Arterial Blood pO2 at Patient Temp 116 mmHg (65-108) Arterial Blood HCO3 23 mmol/L (21-28) Arterial Blood Base Excess -1 mmol/L (-3-3) FiO2 50/vent Test 11/03/20 20:00 11/04/20 05:40 Sodium Level 134 mmol/L (136-145) 134 mmol/L (136-145) Potassium Level 4.1 mmol/L (3.5-5.1) 4.6 mmol/L (3.5-5.1) Chloride Level 99 mmol/L (98-107) 98 mmol/L (98-107) Carbon Dioxide Level 23 mmol/L (21-32) 18 mmol/L (21-32) Anion Gap 12 (6-14) 18 (6-14) Blood Urea Nitrogen 55 mg/dL (7-20) 42 mg/dL (7-20) Creatinine 2.1 mg/dL (0.6-1.0) 2.0 mg/dL (0.6-1.0) Estimated GFR (Cockcroft-Gault) 28.7 30.4 Glucose Level 120 mg/dL (70-99) 80 mg/dL (70-99) Calcium Level 6.4 mg/dL (8.5-10.1) 6.6 mg/dL (8.5-10.1) Phosphorus Level 3.7 mg/dL (2.6-4.7) 4.3 mg/dL (2.6-4.7) Magnesium Level 2.6 mg/dL (1.8-2.4) 2.5 mg/dL (1.8-2.4) White Blood Count 15.3 x10^3/uL (4.0-11.0) Red Blood Count 3.77 x10^6/uL (3.50-5.40) Hemoglobin 10.9 g/dL (12.0-15.5) Hematocrit 33.0 % (36.0-47.0) Mean Corpuscular Volume 87 fL (79-100) Mean Corpuscular Hemoglobin 29 pg (25-35) Mean Corpuscular Hemoglobin Concent 33 g/dL (31-37) Red Cell Distribution Width 14.2 % (11.5-14.5) Platelet Count 83 x10^3/uL (140-400) Neutrophils (%) (Auto) 87 % (31-73) Lymphocytes (%) (Auto) 7 % (24-48) Monocytes (%) (Auto) 6 % (0-9) Eosinophils (%) (Auto) 1 % (0-3) Basophils (%) (Auto) 0 % (0-3) Neutrophils # (Auto) 13.3 x10^3/uL (1.8-7.7) Lymphocytes # (Auto) 1.0 x10^3/uL (1.0-4.8) Monocytes # (Auto) 0.9 x10^3/uL (0.0-1.1) Eosinophils # (Auto) 0.1 x10^3/uL (0.0-0.7) Basophils # (Auto) 0.0 x10^3/uL (0.0-0.2) Segmented Neutrophils % 70 % (35-66) Band Neutrophils % 12 % (0-9) Lymphocytes % 12 % (24-48) Monocytes % 5 % (0-10) Eosinophils % 1 % (0-5) Nucleated Red Blood Cells 12 Platelet Estimate Decreased (ADEQUATE) Polychromasia Present Anisocytosis Present Macrocytosis Present Schistocytes Occ BUN/Creatinine Ratio 21 (6-20) Total Bilirubin 4.1 mg/dL (0.2-1.0) Aspartate Amino Transf (AST/SGOT) 6840 U/L (15-37) Alanine Aminotransferase (ALT/SGPT) 5040 U/L (14-59) Alkaline Phosphatase 261 U/L (46-116) Total Protein 5.6 g/dL (6.4-8.2) Albumin 2.1 g/dL (3.4-5.0) Albumin/Globulin Ratio 0.6 (1.0-1.7) Results All relevant outside records, renal labs, imaging studies, telemetry/EKG's were reviewed. Other Cxr 1. Stable life support devices. 2. Slightly improved patchy bilateral opacities. 3. Stable small bilateral pleural effusions. Justicifation of Admission Dx: Justifications for Admission: Justification of Admission Dx: Yes THANH ESTEVEZ MD Nov 04, 2020 10:22
--- NOTE | 2020-11-04 10:27 | PDOC ---
CARDIO Progress Notes Subjective Subjective: Other (intubated, sedated ) Vitals Vitals Vital Signs Date Time Temp Pulse Resp B/P (MAP) Pulse Ox O2 Delivery O2 Flow Rate FiO2 11/04/20 08:54 30 Ventilator 11/04/20 06:30 91 97/71 (80) 11/04/20 06:00 96.6 96.6 11/04/20 01:00 95 11/03/20 12:50 2.0 Weight Weight [ ] Input and Output Intake and Output Intake and Output 11/04/20 07:00 Intake Total 3259 ml Output Total 457 ml Balance 2802 ml IV Total 3259 ml Output Urine Total 342 ml Drainage Total 115 ml Laboratory Labs Laboratory Tests Test 11/03/20 13:30 11/03/20 15:51 11/03/20 17:25 11/03/20 17:30 Lactic Acid Level 4.5 mmol/L (0.4-2.0) Fibrinogen 305 mg/dL (200-440) Troponin I Quantitative 13.026 ng/mL (0.000-0.055) O2 Saturation 98 % (92-99) Arterial Blood pH 7.44 (7.35-7.45) Arterial Blood pCO2 at Patient Temp 34 mmHg (35-46) Arterial Blood pO2 at Patient Temp 116 mmHg (65-108) Arterial Blood HCO3 23 mmol/L (21-28) Arterial Blood Base Excess -1 mmol/L (-3-3) FiO2 50/vent Test 11/03/20 20:00 11/04/20 05:40 Sodium Level 134 mmol/L (136-145) 134 mmol/L (136-145) Potassium Level 4.1 mmol/L (3.5-5.1) 4.6 mmol/L (3.5-5.1) Chloride Level 99 mmol/L (98-107) 98 mmol/L (98-107) Carbon Dioxide Level 23 mmol/L (21-32) 18 mmol/L (21-32) Anion Gap 12 (6-14) 18 (6-14) Blood Urea Nitrogen 55 mg/dL (7-20) 42 mg/dL (7-20) Creatinine 2.1 mg/dL (0.6-1.0) 2.0 mg/dL (0.6-1.0) Estimated GFR (Cockcroft-Gault) 28.7 30.4 Glucose Level 120 mg/dL (70-99) 80 mg/dL (70-99) Calcium Level 6.4 mg/dL (8.5-10.1) 6.6 mg/dL (8.5-10.1) Phosphorus Level 3.7 mg/dL (2.6-4.7) 4.3 mg/dL (2.6-4.7) Magnesium Level 2.6 mg/dL (1.8-2.4) 2.5 mg/dL (1.8-2.4) White Blood Count 15.3 x10^3/uL (4.0-11.0) Red Blood Count 3.77 x10^6/uL (3.50-5.40) Hemoglobin 10.9 g/dL (12.0-15.5) Hematocrit 33.0 % (36.0-47.0) Mean Corpuscular Volume 87 fL (79-100) Mean Corpuscular Hemoglobin 29 pg (25-35) Mean Corpuscular Hemoglobin Concent 33 g/dL (31-37) Red Cell Distribution Width 14.2 % (11.5-14.5) Platelet Count 83 x10^3/uL (140-400) Neutrophils (%) (Auto) 87 % (31-73) Lymphocytes (%) (Auto) 7 % (24-48) Monocytes (%) (Auto) 6 % (0-9) Eosinophils (%) (Auto) 1 % (0-3) Basophils (%) (Auto) 0 % (0-3) Neutrophils # (Auto) 13.3 x10^3/uL (1.8-7.7) Lymphocytes # (Auto) 1.0 x10^3/uL (1.0-4.8) Monocytes # (Auto) 0.9 x10^3/uL (0.0-1.1) Eosinophils # (Auto) 0.1 x10^3/uL (0.0-0.7) Basophils # (Auto) 0.0 x10^3/uL (0.0-0.2) Segmented Neutrophils % 70 % (35-66) Band Neutrophils % 12 % (0-9) Lymphocytes % 12 % (24-48) Monocytes % 5 % (0-10) Eosinophils % 1 % (0-5) Nucleated Red Blood Cells 12 Platelet Estimate Decreased (ADEQUATE) Polychromasia Present Anisocytosis Present Macrocytosis Present Schistocytes Occ BUN/Creatinine Ratio 21 (6-20) Total Bilirubin 4.1 mg/dL (0.2-1.0) Aspartate Amino Transf (AST/SGOT) 6840 U/L (15-37) Alanine Aminotransferase (ALT/SGPT) 5040 U/L (14-59) Alkaline Phosphatase 261 U/L (46-116) Total Protein 5.6 g/dL (6.4-8.2) Albumin 2.1 g/dL (3.4-5.0) Albumin/Globulin Ratio 0.6 (1.0-1.7) Microbiology Micro Microbiology 11/02/20 Blood Culture - Preliminary, Resulted NO GROWTH AFTER 1 DAY Physical Exam HEENT: Neck Supple W Full Motion Chest: Symmetric LUNGS: Other (mechanical vent ) Heart: RRR, other (3/6 systolic murmur ) Abdomen: Other (soft ) Neurology: other (sedated) Justicifation of Admission Dx: Justifications for Admission: Justification of Admission Dx: Yes ANA MARÍA NAVARRO APRN Nov 04, 2020 10:27
--- NOTE | 2020-11-04 12:52 | PN ---
DATE: 11/04/2020 ADDENDUM Code leeroy was called. I was in the hospital and came to the patient's bed. The patient had no pulse. CPR was initiated. Full ACLS protocol was performed. The patient required multiple doses of epinephrine as well as atropine. She also received bicarbonate. She continued to have no pulse. Her rhythm did change after initiating CPR and there were ST segment elevations observed. However, after 20 minutes of full ACLS protocol, there were still no signs of return of spontaneous circulation. The patient had no pulse. I tried multiple times to reach her DPOA, son, but was unable to reach him. I left a message for him to call back. The patient's daughter also arrived in the hospital and I did inform her. The patient was pronounced after more then 20 min of full ACLS protocol. ALLISON YARBROUGH MD DR: CHRIS/myra JOB#: [id number] / [id number] RANDOLPH
--- NOTE | 2020-11-04 13:28 | NUR ---
Pt blood pressure stable all morning on vasopressin and levophed, pt was on crrt and tolerating well. pulses were able to be dopplered and art line reading well. Dr Long wanted to switch from levophed to neosynepherine, vinnie was started and was awaiting ability to wean levophed down. CRRT was starting to clot off and HD RN next door, plan to restring before she left ICU. Dr Saenz came through and ordered CT, plan made with Dr Sal, RT and this RN to disconnect pt from CRRT, go to CT and then have HD RN restring when back from CT. Pt VSS and Arterial line reading well, blood was returned and dialysis stopped. Pt taken to CT, arterial line was positional but when held back bp was 110/80s. Pt completed CT with no problems. Pt back to room, arterial line dampened, unable to get a good waveform or pressure, attempted to reposition and fix, unable to get it to work. Attempted blood pressure with manual cuff and doppler, sbp in the 70s but pulse was thready at this time, all gtts maxed and fluid bolus started. Pt reading ST in the 100s on the monitor with minimal ST elevation. While trying to find good pulse to do manual blood pressure, pulse was lost completely, multiple RNs in room attempted to locate pulses with palpation or doppler, none found, code blue activated. Dr Long and Charisse from Cardiology at bedside. Dr Long tried to call son multiple times during code with no response. After code was initiated ST elevation increased dramatically, cardiology at bedside and noted this. Code stopped at [address] Long and TOD declared. Son was finally notified of pt passing. Son came to hospital as well as other family. Son denied wanting autopsy, belongings sent with him. Physicians notified of TOD. 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
--- NOTE | 2020-11-04 13:59 | PDOC3 ---
Discharge Summary Visit Information Date of Admission: Nov 01, 2020 Date of Discharge: Nov 04, 2020 Final Diagnosis acute Takotsubo's cardiomyopathy EF 35 %. acute hypoxic respiratory failure severe sepsis and septic shock Bilat infiltrates, acute CHF, due to sepsis r, CV consult sepsis, on zyvox, levaquin, micafungin. admit for Symptomatic cholelithiasis and poss cholecystitis, ascending cholangitis SHINE and acute Vasomotor nephropathy Hyponatremia Transaminitis Severe malnutrition in obese, BMI 38 History of Present Illness History of Present Illness Laparoscopic cholecystectomy with intraoperative cholangiogram on 11/02, Problems Medical Problems: (1) Acute renal failure Status: Acute (2) Cholelithiasis Status: Acute (3) Dehydration Status: Acute (4) Intractable nausea and vomiting Status: Acute (5) Person under investigation for COVID-19 Status: Acute (6) Renal failure Status: Acute (7) Transaminitis Status: Acute Brief Hospital Course Allergies Allergies Coded Allergies Type Severity Reaction Last Updated Verified No Known Drug Allergies 11/01/20 No Vital Signs Vital Signs Date Time Temp Pulse Resp B/P (MAP) Pulse Ox O2 Delivery O2 Flow Rate FiO2 11/04/20 11:14 Ventilator 11/04/20 10:45 104 34 110/94 (99) 11/04/20 10:00 97.4 97.4 11/04/20 01:00 95 11/03/20 12:50 2.0 Lab Results Laboratory Tests Test 11/02/20 14:22 11/02/20 16:30 11/02/20 17:41 11/02/20 18:49 O2 Saturation 98 % (92-99) 99 % (92-99) Arterial Blood pH 7.18 (7.35-7.45) 7.21 (7.35-7.45) Arterial Blood pH (Temp corrected) 7.19 7.22 Arterial Blood pCO2 at Patient Temp 36 mmHg (35-46) 28 mmHg (35-46) Arterial Blood pCO2 (Temp correct) 35 mmHg 27 mmHg Arterial Blood pO2 at Patient Temp 149 mmHg (65-108) 193 mmHg (65-108) Arterial Blood pO2 (Temp corrected) 144 mmHg 189 mmHg Arterial Blood HCO3 13 mmol/L (21-28) 11 mmol/L (21-28) Arterial Blood Base Excess -14 mmol/L (-3-3) -16 mmol/L (-3-3) FiO2 100 100 Lactic Acid Level 11.8 mmol/L (0.4-2.0) Urine Collection Type Unknown Urine Color Radha Urine Clarity Cloudy Urine pH 5.0 (<5.0-8.0) Urine Specific [place] 1.020 (1.000-1.030) Urine Protein 30 mg/dL (NEG-TRACE) Urine Glucose (UA) Negative mg/dL (NEG) Urine Ketones (Stick) Negative mg/dL (NEG) Urine Blood Small (NEG) Urine Nitrite Negative (NEG) Urine Bilirubin Negative (NEG) Urine Urobilinogen Dipstick 1.0 mg/dL (0.2 mg/dL) Urine Leukocyte Esterase Negative (NEG) Urine RBC 6-10 /HPF (0-2) Urine WBC 1-4 /HPF (0-4) Urine Transitional Epithelial Cells Few /LPF Urine Amorphous Sediment Present /HPF Urine Bacteria 0 /HPF (0-FEW) Urine Hyaline Casts Moderate /HPF Urine Waxy Casts Occasional /HPF Urine Mucus Slight /LPF Urine Opiates Screen Pos (NEG) Urine Methadone Screen Neg (NEG) Urine Barbiturates Neg (NEG) Urine Phencyclidine Screen Neg (NEG) Urine Amphetamine/Methamphetamine Neg (NEG) Urine Benzodiazepines Screen Pos (NEG) Urine Cocaine Screen Neg (NEG) Urine Cannabinoids Screen Pos (NEG) Urine Ethyl Alcohol Neg (NEG) Test 11/02/20 21:15 11/03/20 08:50 11/03/20 09:50 11/03/20 13:30 Lactic Acid Level 13.3 mmol/L (0.4-2.0) 5.1 mmol/L (0.4-2.0) 4.5 mmol/L (0.4-2.0) O2 Saturation 96 % (92-99) Arterial Blood pH 7.42 (7.35-7.45) Arterial Blood pCO2 at Patient Temp 36 mmHg (35-46) Arterial Blood pO2 at Patient Temp 98 mmHg (65-108) Arterial Blood HCO3 23 mmol/L (21-28) Arterial Blood Base Excess -2 mmol/L (-3-3) FiO2 60% vent White Blood Count 12.4 x10^3/uL (4.0-11.0) Red Blood Count 3.58 x10^6/uL (3.50-5.40) Hemoglobin 10.1 g/dL (12.0-15.5) Hematocrit 30.5 % (36.0-47.0) Mean Corpuscular Volume 85 fL (79-100) Mean Corpuscular Hemoglobin 28 pg (25-35) Mean Corpuscular Hemoglobin Concent 33 g/dL (31-37) Red Cell Distribution Width 13.8 % (11.5-14.5) Platelet Count 99 x10^3/uL (140-400) Neutrophils (%) (Auto) 83 % (31-73) Lymphocytes (%) (Auto) 8 % (24-48) Monocytes (%) (Auto) 7 % (0-9) Eosinophils (%) (Auto) 2 % (0-3) Basophils (%) (Auto) 0 % (0-3) Neutrophils # (Auto) 10.3 x10^3/uL (1.8-7.7) Lymphocytes # (Auto) 1.0 x10^3/uL (1.0-4.8) Monocytes # (Auto) 0.8 x10^3/uL (0.0-1.1) Eosinophils # (Auto) 0.3 x10^3/uL (0.0-0.7) Basophils # (Auto) 0.0 x10^3/uL (0.0-0.2) Prothrombin Time 26.4 SEC (11.7-14.0) Prothromb Time International Ratio 2.4 (0.8-1.1) D-Dimer (Nathaly) > 20.00 ug/mlFEU Sodium Level 131 mmol/L (136-145) Potassium Level 4.4 mmol/L (3.5-5.1) Chloride Level 92 mmol/L (98-107) Carbon Dioxide Level 25 mmol/L (21-32) Anion Gap 14 (6-14) Blood Urea Nitrogen 78 mg/dL (7-20) Creatinine 2.9 mg/dL (0.6-1.0) Estimated GFR (Cockcroft-Gault) 19.8 Glucose Level 191 mg/dL (70-99) Calcium Level 6.2 mg/dL (8.5-10.1) Total Bilirubin 2.2 mg/dL (0.2-1.0) Direct Bilirubin 1.1 mg/dL (0.0-0.2) Aspartate Amino Transf (AST/SGOT) 6839 U/L (15-37) Alanine Aminotransferase (ALT/SGPT) 3927 U/L (14-59) Alkaline Phosphatase 228 U/L (46-116) Troponin I Quantitative 14.960 ng/mL (0.000-0.055) C-Reactive Protein, Quantitative 90.4 mg/L (0-3.3) Total Protein 5.6 g/dL (6.4-8.2) Albumin 2.1 g/dL (3.4-5.0) Test 11/03/20 15:51 11/03/20 17:25 11/03/20 17:30 11/03/20 20:00 Fibrinogen 305 mg/dL (200-440) Troponin I Quantitative 13.026 ng/mL (0.000-0.055) O2 Saturation 98 % (92-99) Arterial Blood pH 7.44 (7.35-7.45) Arterial Blood pCO2 at Patient Temp 34 mmHg (35-46) Arterial Blood pO2 at Patient Temp 116 mmHg (65-108) Arterial Blood HCO3 23 mmol/L (21-28) Arterial Blood Base Excess -1 mmol/L (-3-3) FiO2 50/vent Sodium Level 134 mmol/L (136-145) Potassium Level 4.1 mmol/L (3.5-5.1) Chloride Level 99 mmol/L (98-107) Carbon Dioxide Level 23 mmol/L (21-32) Anion Gap 12 (6-14) Blood Urea Nitrogen 55 mg/dL (7-20) Creatinine 2.1 mg/dL (0.6-1.0) Estimated GFR (Cockcroft-Gault) 28.7 Glucose Level 120 mg/dL (70-99) Calcium Level 6.4 mg/dL (8.5-10.1) Phosphorus Level 3.7 mg/dL (2.6-4.7) Magnesium Level 2.6 mg/dL (1.8-2.4) Test 11/04/20 05:40 11/04/20 08:00 11/04/20 09:25 11/04/20 10:50 White Blood Count 15.3 x10^3/uL (4.0-11.0) Red Blood Count 3.77 x10^6/uL (3.50-5.40) Hemoglobin 10.9 g/dL (12.0-15.5) Hematocrit 33.0 % (36.0-47.0) Mean Corpuscular Volume 87 fL (79-100) Mean Corpuscular Hemoglobin 29 pg (25-35) Mean Corpuscular Hemoglobin Concent 33 g/dL (31-37) Red Cell Distribution Width 14.2 % (11.5-14.5) Platelet Count 83 x10^3/uL (140-400) Neutrophils (%) (Auto) 87 % (31-73) Lymphocytes (%) (Auto) 7 % (24-48) Monocytes (%) (Auto) 6 % (0-9) Eosinophils (%) (Auto) 1 % (0-3) Basophils (%) (Auto) 0 % (0-3) Neutrophils # (Auto) 13.3 x10^3/uL (1.8-7.7) Lymphocytes # (Auto) 1.0 x10^3/uL (1.0-4.8) Monocytes # (Auto) 0.9 x10^3/uL (0.0-1.1) Eosinophils # (Auto) 0.1 x10^3/uL (0.0-0.7) Basophils # (Auto) 0.0 x10^3/uL (0.0-0.2) Segmented Neutrophils % 70 % (35-66) Band Neutrophils % 12 % (0-9) Lymphocytes % 12 % (24-48) Monocytes % 5 % (0-10) Eosinophils % 1 % (0-5) Nucleated Red Blood Cells 12 Platelet Estimate Decreased (ADEQUATE) Polychromasia Present Anisocytosis Present Macrocytosis Present Schistocytes Occ Sodium Level 134 mmol/L (136-145) Potassium Level 4.6 mmol/L (3.5-5.1) Chloride Level 98 mmol/L (98-107) Carbon Dioxide Level 18 mmol/L (21-32) Anion Gap 18 (6-14) Blood Urea Nitrogen 42 mg/dL (7-20) Creatinine 2.0 mg/dL (0.6-1.0) Estimated GFR (Cockcroft-Gault) 30.4 BUN/Creatinine Ratio 21 (6-20) Glucose Level 80 mg/dL (70-99) Calcium Level 6.6 mg/dL (8.5-10.1) Phosphorus Level 4.3 mg/dL (2.6-4.7) Magnesium Level 2.5 mg/dL (1.8-2.4) Total Bilirubin 4.1 mg/dL (0.2-1.0) Aspartate Amino Transf (AST/SGOT) 6840 U/L (15-37) Alanine Aminotransferase (ALT/SGPT) 5040 U/L (14-59) Alkaline Phosphatase 261 U/L (46-116) Total Protein 5.6 g/dL (6.4-8.2) Albumin 2.1 g/dL (3.4-5.0) Albumin/Globulin Ratio 0.6 (1.0-1.7) O2 Saturation 97 % (92-99) Arterial Blood pH 7.35 (7.35-7.45) Arterial Blood pCO2 at Patient Temp 27 mmHg (35-46) Arterial Blood pO2 at Patient Temp 111 mmHg (65-108) Arterial Blood HCO3 15 mmol/L (21-28) Arterial Blood Base Excess -10 mmol/L (-3-3) Lactic Acid Level 12.0 mmol/L (0.4-2.0) Ammonia 83 mcmol/L (11-34) Laboratory Tests Test 11/03/20 15:51 11/03/20 17:25 11/03/20 17:30 11/03/20 20:00 Fibrinogen 305 mg/dL (200-440) Troponin I Quantitative 13.026 ng/mL (0.000-0.055) O2 Saturation 98 % (92-99) Arterial Blood pH 7.44 (7.35-7.45) Arterial Blood pCO2 at Patient Temp 34 mmHg (35-46) Arterial Blood pO2 at Patient Temp 116 mmHg (65-108) Arterial Blood HCO3 23 mmol/L (21-28) Arterial Blood Base Excess -1 mmol/L (-3-3) FiO2 50/vent Sodium Level 134 mmol/L (136-145) Potassium Level 4.1 mmol/L (3.5-5.1) Chloride Level 99 mmol/L (98-107) Carbon Dioxide Level 23 mmol/L (21-32) Anion Gap 12 (6-14) Blood Urea Nitrogen 55 mg/dL (7-20) Creatinine 2.1 mg/dL (0.6-1.0) Estimated GFR (Cockcroft-Gault) 28.7 Glucose Level 120 mg/dL (70-99) Calcium Level 6.4 mg/dL (8.5-10.1) Phosphorus Level 3.7 mg/dL (2.6-4.7) Magnesium Level 2.6 mg/dL (1.8-2.4) Test 11/04/20 05:40 11/04/20 08:00 11/04/20 09:25 11/04/20 10:50 White Blood Count 15.3 x10^3/uL (4.0-11.0) Red Blood Count 3.77 x10^6/uL (3.50-5.40) Hemoglobin 10.9 g/dL (12.0-15.5) Hematocrit 33.0 % (36.0-47.0) Mean Corpuscular Volume 87 fL (79-100) Mean Corpuscular Hemoglobin 29 pg (25-35) Mean Corpuscular Hemoglobin Concent 33 g/dL (31-37) Red Cell Distribution Width 14.2 % (11.5-14.5) Platelet Count 83 x10^3/uL (140-400) Neutrophils (%) (Auto) 87 % (31-73) Lymphocytes (%) (Auto) 7 % (24-48) Monocytes (%) (Auto) 6 % (0-9) Eosinophils (%) (Auto) 1 % (0-3) Basophils (%) (Auto) 0 % (0-3) Neutrophils # (Auto) 13.3 x10^3/uL (1.8-7.7) Lymphocytes # (Auto) 1.0 x10^3/uL (1.0-4.8) Monocytes # (Auto) 0.9 x10^3/uL (0.0-1.1) Eosinophils # (Auto) 0.1 x10^3/uL (0.0-0.7) Basophils # (Auto) 0.0 x10^3/uL (0.0-0.2) Segmented Neutrophils % 70 % (35-66) Band Neutrophils % 12 % (0-9) Lymphocytes % 12 % (24-48) Monocytes % 5 % (0-10) Eosinophils % 1 % (0-5) Nucleated Red Blood Cells 12 Platelet Estimate Decreased (ADEQUATE) Polychromasia Present Anisocytosis Present Macrocytosis Present Schistocytes Occ Sodium Level 134 mmol/L (136-145) Potassium Level 4.6 mmol/L (3.5-5.1) Chloride Level 98 mmol/L (98-107) Carbon Dioxide Level 18 mmol/L (21-32) Anion Gap 18 (6-14) Blood Urea Nitrogen 42 mg/dL (7-20) Creatinine 2.0 mg/dL (0.6-1.0) Estimated GFR (Cockcroft-Gault) 30.4 BUN/Creatinine Ratio 21 (6-20) Glucose Level 80 mg/dL (70-99) Calcium Level 6.6 mg/dL (8.5-10.1) Phosphorus Level 4.3 mg/dL (2.6-4.7) Magnesium Level 2.5 mg/dL (1.8-2.4) Total Bilirubin 4.1 mg/dL (0.2-1.0) Aspartate Amino Transf (AST/SGOT) 6840 U/L (15-37) Alanine Aminotransferase (ALT/SGPT) 5040 U/L (14-59) Alkaline Phosphatase 261 U/L (46-116) Total Protein 5.6 g/dL (6.4-8.2) Albumin 2.1 g/dL (3.4-5.0) Albumin/Globulin Ratio 0.6 (1.0-1.7) O2 Saturation 97 % (92-99) Arterial Blood pH 7.35 (7.35-7.45) Arterial Blood pCO2 at Patient Temp 27 mmHg (35-46) Arterial Blood pO2 at Patient Temp 111 mmHg (65-108) Arterial Blood HCO3 15 mmol/L (21-28) Arterial Blood Base Excess -10 mmol/L (-3-3) Lactic Acid Level 12.0 mmol/L (0.4-2.0) Ammonia 83 mcmol/L (11-34) Brief Hospital Course Ms. Shoemaker is a 65 old female admit with abd pain, acute emily, taken to OR, cholangiogram, removal, then hypotension and fever after, Abx started, fluid, kept on vent, ID, PULM consjult, GI consutl from transaminases in 5000 range with elevated bili, slowly to 4, GI consult dx shock liver, sepsis, PUlm had concern for retained stone. Vitals had bene OK on levaphed, and vasopressin, then sudden drop in BP some new murmur, poss TAKASUBU cardiomyopathy Discharge Information Condition at Discharge: / (today) Scheduled PRN Ibuprofen (Ibuprofen) 800 Mg Tablet, 800 MG PO PRN Q6HRS PRN for PAIN, (Reported) Entered as Reported by: LUISA HERNANDEZ RN on 11/01/202354 Last Taken: Unknown Dose on Unknown Date & Time Last Action: New Order on 11/01/202354 by LUISA HERNANDEZ RN Patient Instructions Patient Instructions ECHO Hypokinetic mid to distal myocardial segments, pattern suspicous for Takotsubo's cardiomyopathy. The ejection fraction is estimated at 35-40%. 2 exam, family visit, > 30 min pt Justicifation of Admission Dx: Justifications for Admission: Justification of Admission Dx: Yes BALAJI SIN MD Nov 04, 2020 13:59
[2020-11-04 14:11] LABS: SMOOTH MUSCLE AB 3 Units (0-19)
--- NOTE | 2020-11-04 15:44 | RAD ---
EXAM: CT Chest, Abdomen, and Pelvis without IV contrast INDICATION: Reason: SEVERE SEPSIS, RECENT LAP CHOLECYSTECTOMY,HEPATORENAL FAILURE / Spl. Instructions : / History: TECHNIQUE: Multi-detector row CT images were acquired from the thoracic inlet through the ischial tu berosities without the use of IV contrast. Sagittal and coronal images were acquired from the transax ial data. All CT scans performed at this facility utilize dose optimization techniques as appropriate to the exam, including the following: Automated exposure control and adjustment of the mA and/or KV according to patient size (this includes techniques or standardized protocols for targeted exams wher e dose is indication/reason for exam). ORAL CONTRAST: Not administered COMPARISON: Chest x-ray of 11/04/2020, and 11/03/2020 FINDINGS: The absence of IV contrast limits evaluation of soft tissue pathology. CHEST: CARDIOVASCULAR: Stable borderline enlarged heart. Normal caliber thoracic aorta with no evidence of intramural hematoma. There are 2 right jugular approach central venous catheters that terminate respe ctively at the proximal SVC (innominate vein confluence) and at the cavoatrial junction. MEDIASTINUM & MANINDER: Patient is intubated with the ET tube tip in apparent satisfactory position. It m easures approximately 3.6 cm from the zack. An enteric tube is also in place with the tip in the di stal stomach. No mediastinal hematoma or fluid collection is apparent. No mediastinal or hilar mass o r adenopathy. LUNGS: Lungs show bibasilar atelectasis and multifocal patchy infiltrates upper and middle lobes. PLEURAL SPACE: Moderate bilateral pleural effusions are present. OSSEOUS & SOFT TISSUE: No acute or aggressive osseous lesions are seen. ABDOMEN/PELVIS: LIVER: Unremarkable BILIARY SYSTEM: Gallbladder is unremarkable. Bile ducts are not dilated. PANCREAS: Unremarkable SPLEEN: Unremarkable ADRENALS: Unremarkable KIDNEYS & URETERS: Unremarkable BLADDER: Decompressed by an indwelling Soler catheter. REPRODUCTIVE ORGANS: Unremarkable GASTROINTESTINAL: The stomach, small bowel, and colon are unremarkable. A rectal probe is present. T he appendix is normal. MESENTERY/PERITONEUM/RETROPERITONEUM: An intraperitoneal drainage catheter is present approaching fro m a right lateral periumbilical entry point, coursing across the inferior aspect of the gallbladder f tray and terminating in the left midabdomen. Although there is respiratory motion artifact that degra chintan detail, no fluid collection is identified in the operative bed. There is symmetric soft tissue st randing in the subcutaneous fat overlying the bilateral rectus abdominis muscles. VASCULAR: Unremarkable LYMPH NODES: No adenopathy OSSEOUS & SOFT TISSUES: No acute or aggressive osseous lesions are seen. There are degenerative hicks ges at the lumbosacral junction. IMPRESSION: 1. Multifocal bilateral pneumonia with bibasilar lobar atelectasis and pleural effusions. 2. Postcholecystectomy surgical changes with a surgical drain in the abdominal cavity but no evidence of bowel perforation, obstruction or inflammation on noncontrast CT, or intra-abdominal fluid collec tion noted. Electronically signed by: Jaycee Hartman MD (11/04/2020 3:41 PM) [id number]
[2020-11-04 20:08] LABS: ANA INTERP Positive (.)
[2020-11-04] MEDS ORDERED: FAMOTIDINE 20 MG/2 ML VIAL IVP SCH (21:00)
== END 2020-11-04 12:00 | DRG 853 ==
LOC: ER 20:17 → 6 SOUTH 22:23 → 1 WEST ICU 11-02 12:46
PROVIDERS: ADMIT Family Medicine; ATTEND Family Medicine
PROC: BF101ZZ Fluoroscopy of Bile Ducts using Low Osmolar Contrast (ICD-10-PCS; 2020-11-02)
PROC: 0BH17EZ Insertion of Endotracheal Airway into Trachea, Via Natural or Artificial Opening (ICD-10-PCS; 2020-11-02)
PROC: 5A1945Z Respiratory Ventilation, 24-96 Consecutive Hours (ICD-10-PCS; 2020-11-02)
PROC: 0FT44ZZ Resection of Gallbladder, Percutaneous Endoscopic Approach (ICD-10-PCS; principal; 2020-11-02 13:15)
PROC: 03HY32Z Insertion of Monitoring Device into Upper Artery, Percutaneous Approach (ICD-10-PCS; 2020-11-03)
PROC: 05HY33Z Insertion of Infusion Device into Upper Vein, Percutaneous Approach (ICD-10-PCS; 2020-11-03)
PROC: B543ZZA Ultrasonography of Right Jugular Veins, Guidance (ICD-10-PCS; 2020-11-03)
PROC: 5A12012 Performance of Cardiac Output, Single, Manual (ICD-10-PCS; 2020-11-04)
DX: A41.9 Sepsis, unspecified organism (principal); E43 Unspecified severe protein-calorie malnutrition; K72.00 Acute and subacute hepatic failure without coma; N17.0 Acute kidney failure with tubular necrosis; R65.21 Severe sepsis with septic shock; J18.9 Pneumonia, unspecified organism; J96.01 Acute respiratory failure with hypoxia; K80.10 Calculus of gallbladder with chronic cholecystitis without obstruction; E87.1 Hypo-osmolality and hyponatremia; E87.2 Acidosis; K83.09 Other cholangitis; I51.81 Takotsubo syndrome; J98.11 Atelectasis; D68.9 Coagulation defect, unspecified; J91.8 Pleural effusion in other conditions classified elsewhere; D69.6 Thrombocytopenia, unspecified; M19.90 Unspecified osteoarthritis, unspecified site; D64.9 Anemia, unspecified; E86.0 Dehydration; I50.9 Heart failure, unspecified; F32.9 Major depressive disorder, single episode, unspecified; F41.9 Anxiety disorder, unspecified; R68.0 Hypothermia, not associated with low environmental temperature; E66.01 Morbid (severe) obesity due to excess calories; E83.51 Hypocalcemia; R94.5 Abnormal results of liver function studies; K21.9 Gastro-esophageal reflux disease without esophagitis; F12.90 Cannabis use, unspecified, uncomplicated; K76.0 Fatty (change of) liver, not elsewhere classified; Z20.822 Contact with and (suspected) exposure to COVID-19; Z68.38 Body mass index [BMI] 38.0-38.9, adult
CPT/HCPCS: 96361; 96374; 96375; 99285; C8929; 36415; 36556; 36600; 36620; 71045; 71250; 74176; 74300; 76705; 76937; 80048; 80053; 80076; 80307; 81001; 82140; 82390; 82803; 82805; 83516; 83540; 83550; 83605; 83690; 83735; 84100; 84484; 85007; 85025; 85027; 85379; 85384; 85610; 85730; 86038; 86140; 86317; 86705; 86709; 86803; 87040; 87340; 87426; 87449; 88304; 94002; 94003; C1892; G0480; J0171; J0330; J0461; J1100; J1644; J1940; J1956; J2020; J2248; J2250; J2270; J2370; J2405; J2543; J2704; J3010; J3480; J3490; J7030; J7050; J7060; J7120; Q9956; Q9967; U0003; G0378